=== PATIENT | female | born 1975 | race American Indian/Alaskan Native ===

== ENCOUNTER 2019-07-18 13:12 | Emergency (ER) | payer BC ==
[2019-07-18 13:21] VITALS: BP 184/96
--- NOTE | 2019-07-18 15:49 | Emergency Department Report ---
ED General Adult HPI - General Chief complaint: Headache Stated complaint: HEADACHE/RASH Time Seen by Provider: 07/18/19 14:13 Source: patient Mode of arrival: Ambulatory Limitations: No Limitations - History of Present Illness Initial comments: This is a 44-year-old female with a history of hypertension who presents to ED complaining acute throbbing headache with blurred vision the past 2 days. Patient states that her blood pressure is elevated from the past week or so. Patient states that she ran medication that she is not taking her blood pressure medication because of the fact that makes all her hands and legs a lot. Patient states she takes losartan as well as amlodipine blood pressure. Patient states that her primary care physician is not managing her blood pressure. She states that she feels that this shows 2 to her elevated blood pressure. She denies fever, chills, nausea, vomiting, abdominal pain, chest pain, shortness of breat h. Patient is also complaining of a rash that is on her bilateral hands has been intermittent for the past month. - Related Data Home Medications Medication Instructions Recorded Confirmed Last Taken Acetaminophen/Codeine 1 tab PO Q4HR PRN 11/22/14 11/27/14 11/21/14 [Acetaminophen-Codeine #3 TAB] glipiZIDE [glipiZIDE XL] 10 mg PO DAILY 11/22/14 11/27/14 11/21/14 Previous Rx's Medication Instructions Recorded Last Taken Type HYDROcodone/APAP 5-325 [[place] 1 each PO Q6HR PRN #20 tablet 11/22/14 Unknown Rx 5-325 mg TAB] levoFLOXacin [Levaquin] 500 mg PO QDAY #10 tablet 11/22/14 Unknown Rx metFORMIN [Glucophage] 1,000 mg PO BID #60 tablet 11/27/14 Unknown Rx Fluconazole [Diflucan TAB] 100 mg PO BID #14 tablet 07/18/19 Unknown Rx Ibuprofen [Motrin] 800 mg PO Q8HR #30 tablet 07/18/19 Unknown Rx Allergies Allergy/AdvReac Type Severity Reaction Status Date / Time No Known Allergies Allergy Unverified 11/22/14 10:30 ED Review of Systems ROS: Stated complaint: HEADACHE/RASH Other details as noted in HPI Comment: All other systems reviewed and negative ED Past Medical Hx - Past Medical History Hx Hypertension: Yes Hx Diabetes: Yes Hx GERD: Yes Hx Renal Disease: Yes (ckd) Additional medical history: Boil with I&D, anemia - Surgical History Past Surgical History?: No - Social History Smoking Status: Never Smoker Substance Use Type: None - Medications Home Medications: Home Medications Medication Instructions Recorded Confirmed Last Taken Type Acetaminophen/Codeine 1 tab PO Q4HR PRN 11/22/14 11/27/14 11/21/14 History [Acetaminophen-Codeine #3 TAB] HYDROcodone/APAP 5-325 [[place] 1 each PO Q6HR PRN #20 tablet 11/22/14 11/27/14 Unknown Rx 5-325 mg TAB] glipiZIDE [glipiZIDE XL] 10 mg PO DAILY 11/22/14 11/27/14 11/21/14 History levoFLOXacin [Levaquin] 500 mg PO QDAY #10 tablet 11/22/14 11/27/14 Unknown Rx metFORMIN [Glucophage] 1,000 mg PO BID #60 tablet 11/27/14 Unknown Rx Fluconazole [Diflucan TAB] 100 mg PO BID #14 tablet 07/18/19 Unknown Rx Ibuprofen [Motrin] 800 mg PO Q8HR #30 tablet 07/18/19 Unknown Rx ED Physical Exam - General Limitations: No Limitations General appearance: alert, in no apparent distress - Head Head exam: Present: atraumatic, normocephalic, normal inspection - Eye Eye exam: Present: normal appearance, PERRL Pupils: Present: normal accommodation - ENT ENT exam: Present: mucous membranes moist - Neck Neck exam: Present: normal inspection - Respiratory Respiratory exam: Present: normal lung sounds bilaterally. Absent: respiratory distress - Cardiovascular Cardiovascular Exam: Present: regular rate, normal rhythm. Absent: systolic murmur, diastolic murmur, rubs, gallop - GI/Abdominal GI/Abdominal exam: Present: soft, normal bowel sounds - Extremities Exam Extremities exam: Present: normal inspection, full ROM - Back Exam Back exam: Present: normal inspection, full ROM - Neurological Exam Neurological exam: Present: alert, oriented X3, normal gait - Psychiatric Psychiatric exam: Present: normal affect, normal mood - Skin Skin exam: Present: warm, dry, intact, normal color, rash (generalized, raised, pinpoint in a group lesions on posterior arms) ED Course Vital Signs 07/18/19 13:18 Temperature 98.1 F Pulse Rate 94 H Respiratory 20 Rate Blood Pressure 184/96 O2 Sat by Pulse 98 Oximetry ED Medical Decision Making - Medical Decision Making 44-year-old female who presents for uncontrolled hypertension as well as eczematous rash. Discussed the patient and her medication for her blood pressure will be reviewed. Discussed medication for eczematous rash. Discussed with the primary care physician Patient is in no acute distress vital signs normal Discussed follow-up with primary care physician in 3-5 days. Patient has no neurological deficit and understands instructions. Critical care attestation.: If time is entered above; I have spent that time in minutes in the direct care of this critically ill patient, excluding procedure time. ED Disposition Clinical Impression: Uncontrolled hypertension, Acute headache, Acute seborrheic dermatitis Disposition: TO HOME OR SELFCARE Is pt being admited?: No Does the pt Need Aspirin: No Condition: Stable Instructions: Eczema (ED), Hypertension (ED) Additional Instructions: Make sure to follow up with the primary care physician as discussed. Take all your medications as you've been prescribed. If you have any worsening symptoms or develop new symptoms please return to ED immediately. Prescriptions: Fluconazole [Diflucan TAB] 100 mg PO BID #14 tablet Ibuprofen [Motrin] 800 mg PO Q8HR #30 tablet Referrals: [facility] [Provider Group] - 3-5 Days [facility] [Outside] - 3-5 Days [facility] [Provider Group] - 3-5 Days Forms: Work/School Release Form(ED) Time of Disposition: 16:06 (all)
== END 2019-07-18 16:14 | disposition home or self-care (01) ==
LOC: ED 13:12
DX: I12.9 Hypertensive chronic kidney disease with stage 1 through stage 4 chronic kidney disease, or unspecified chronic kidney disease (principal); L21.9 Seborrheic dermatitis, unspecified; E11.9 Type 2 diabetes mellitus without complications; K21.9 Gastro-esophageal reflux disease without esophagitis; Z79.899 Other long term (current) drug therapy; Z86.2 Personal history of diseases of the blood and blood-forming organs and certain disorders involving the immune mechanism; Z79.1 Long term (current) use of non-steroidal anti-inflammatories (NSAID); Z79.84 Long term (current) use of oral hypoglycemic drugs
CPT/HCPCS: 99282

== ENCOUNTER 2020-01-03 12:04 | Emergency (ER) | payer SELFPAY ==
[2020-01-03] MEDS ORDERED: ACETAMINOPHEN 325 MG TAB PO ONE (13:34)
--- NOTE | 2020-01-03 13:35 | Emergency Department Report ---
Chief Complaint: Abdominal Pain Stated Complaint: PAIN IN LOWER ABD PAIN/(L) LEG PAIN Time Seen by Provider: 01/03/20 13:34 - HPI History of Present Illness: 44 y/o fem with ckd, stage 3, anemia, htn, dm p/w lower abd painm left sided worse after menses belly soft also has left proximal thigh pain labs ua u sound apap for pain ok for minor care reassess Vital Signs 01/03/20 13:31 Temperature 98.1 F Pulse Rate 90 Respiratory 18 Rate Blood Pressure 193/96 O2 Sat by Pulse 99 Oximetry - Exam Vital Signs: Vital Signs 01/03/20 13:31 Temperature 98.1 F Pulse Rate 90 Respiratory 18 Rate Blood Pressure 193/96 O2 Sat by Pulse 99 Oximetry MSE screening note: Focused history and physical exam performed. Due to findings the following was ordered: ED Disposition for MSE Condition: Stable Instructions: Abdominal Pain (ED)
[2020-01-03] MEDS ORDERED: amLODIPine 5 MG TAB PO ONE (13:36)
[2020-01-03 14:50] LABS: Hemoglobin 8.5 gm/dl (10.1-14.3); Mean Corpuscular HGB Conc 33 % (30-34); Mean Corpuscular Volume 80 fl (79-97); Platelet Count 325 K/mm3 (140-440); Red Blood Count 3.25 M/mm3 (3.65-5.03); Red Cell Distribution Width 15.9 % (13.2-15.2)
[2020-01-03 15:10] LABS: Calcium 9.1 mg/dL (8.4-10.2)
[2020-01-03 15:16] LABS: Bacteria,Urine 1+ /HPF (Negative); Bilirubin,Urine NEG (Negative); Blood,Urine NEG (Negative); Color,Urine Straw (Yellow); Mucus,Urine FEW /HPF; Urobilinogen,Urine < 2.0 mg/dL (<2.0)
--- NOTE | 2020-01-03 16:11 | Ultrasound Report ---
ULTRASOUND PELVIS DUPLEX DOPPLER COMPLETE ULTRASOUND TRANSVAGINAL HISTORY: Pelvic pain TECHNIQUE: Transabdominal and transvaginal imaging with color and spectral Doppler interrogation COMPARISON: None. FINDINGS: The uterus is anteverted. The uterus measures 9.7 x 5.1 x 5.1 cm. A 2.6 x 1.7 x 2.5 cm intramural fib roid is noted in the lower anterior uterine wall. The endometrial stripe measures 13 mm. The right ovary measures 3.9 x 1.7 x 3.3 cm and contains a 2.1 cm slightly complex cyst. The left ovary is unremarkable measuring 2.2 x 2.4 x 4.1 cm. Small to medium free pelvic fluid is noted in both adnexal regions. Spectral Doppler waveforms demonstrate arterial flow to both ovaries. IMPRESSION: Uterine fibroid. 2.1 cm right ovarian cyst. Small to medium free pelvic fluid. Signer Name: Agustin Sahni Jr, MD Signed: 01/03/2020 4:07 PM Workstation Name: [id number]
[2020-01-03] MEDS ORDERED: ACETAMINOPHEN 325 MG TAB ONE (21:00)
[2020-01-03] MEDS ORDERED: amLODIPine 5 MG TAB ONE (21:01)
[2020-01-03 21:04] VITALS: BP 172/94
--- NOTE | 2020-01-03 23:00 | Emergency Department Report ---
ED Abdominal Pain HPI - General Chief Complaint: Abdominal Pain Stated Complaint: PAIN IN LOWER ABD PAIN/(L) LEG PAIN Time Seen by Provider: 01/03/20 13:34 Source: patient Mode of arrival: Ambulatory Limitations: No Limitations - History of Present Illness Initial Comments: Ms. Hill is a 44 y/o fem with ckd, stage 3, anemia, htn, dm p/w, lower abd pain left sided worse, after menses, belly soft, also has left proximal thigh pain, labs, ua, u sound, apap for pain,. Pain relieved by nothing, pain exacerbated by movement. MD Complaint: abdominal pain (LLQ ) Onset/Timin -: week(s) Location: LLQ Radiation: LLQ Migration to: no migration Severity scale (0 -10): 5 Quality: aching Consistency: constant Improves With: nothing Worsens With: movement Associated Symptoms: denies: nausea, vomiting, diarrhea, chills, constipation, dysuria, melena, hematuria - Related Data LMP (females 10-50): 1 month Home Medications Medication Instructions Recorded Confirmed Last Taken Acetaminophen/Codeine 1 tab PO Q4HR PRN 11/22/14 11/27/14 11/21/14 [Acetaminophen-Codeine #3 TAB] glipiZIDE [glipiZIDE XL] 10 mg PO DAILY 11/22/14 11/27/14 11/21/14 Previous Rx's Medication Instructions Recorded Last Taken Type HYDROcodone/APAP 5-325 [[place] 1 each PO Q6HR PRN #20 tablet 11/22/14 Unknown Rx 5-325 mg TAB] levoFLOXacin [Levaquin] 500 mg PO QDAY #10 tablet 11/22/14 Unknown Rx metFORMIN [Glucophage] 1,000 mg PO BID #60 tablet 11/27/14 Unknown Rx Fluconazole [Diflucan TAB] 100 mg PO BID #14 tablet 07/18/19 Unknown Rx Ibuprofen [Motrin] 800 mg PO Q8HR #30 tablet 07/18/19 Unknown Rx Acetaminophen/Codeine [Tylenol 1 tab PO Q6H PRN #12 tab 01/03/20 Unknown Rx /Codeine # 3 tab] Allergies Allergy/AdvReac Type Severity Reaction Status Date / Time No Known Allergies Allergy Unverified 11/22/14 10:30 ED Review of Systems ROS: Stated complaint: PAIN IN LOWER ABD PAIN/(L) LEG PAIN Other details as noted in HPI Constitutional: denies: chills, fever Eyes: denies: eye pain, eye discharge, vision change ENT: denies: ear pain, throat pain Respiratory: denies: cough, shortness of breath, wheezing Cardiovascular: denies: chest pain, palpitations Endocrine: no symptoms reported Gastrointestinal: abdominal pain. denies: nausea, vomiting, diarrhea, constipation, melena Genitourinary: abnormal menses. denies: urgency, dysuria, frequency, hematuria, discharge, dyspareunia Musculoskeletal: denies: back pain, joint swelling, arthralgia Skin: denies: rash, lesions Neurological: denies: headache, weakness, numbness, paresthesias, confusion, abnormal gait, vertigo Psychiatric: denies: anxiety, depression Hematological/Lymphatic: denies: easy bleeding, easy bruising ED Past Medical Hx - Past Medical History Previous Medical History?: Yes Hx Hypertension: Yes Hx Diabetes: Yes Hx GERD: Yes Hx Renal Disease: Yes (ckd- stage 3) Additional medical history: Boil with I&D, anemia - Surgical History Past Surgical History?: No - Social History Smoking Status: Never Smoker Substance Use Type: None - Medications Home Medications: Home Medications Medication Instructions Recorded Confirmed Last Taken Type Acetaminophen/Codeine 1 tab PO Q4HR PRN 11/22/14 11/27/14 11/21/14 History [Acetaminophen-Codeine #3 TAB] HYDROcodone/APAP 5-325 [[place] 1 each PO Q6HR PRN #20 tablet 11/22/14 11/27/14 U nknown Rx 5-325 mg TAB] glipiZIDE [glipiZIDE XL] 10 mg PO DAILY 11/22/14 11/27/14 11/21/14 History levoFLOXacin [Levaquin] 500 mg PO QDAY #10 tablet 11/22/14 11/27/14 Unknown Rx metFORMIN [Glucophage] 1,000 mg PO BID #60 tablet 11/27/14 Unknown Rx Fluconazole [Diflucan TAB] 100 mg PO BID #14 tablet 07/18/19 Unknown Rx Ibuprofen [Motrin] 800 mg PO Q8HR #30 tablet 07/18/19 Unknown Rx Acetaminophen/Codeine [Tylenol 1 tab PO Q6H PRN #12 tab 01/03/20 Unknown Rx /Codeine # 3 tab] ED Physical Exam - General Limitations: No Limitations General appearance: alert, in no apparent distress - Head Head exam: Present: atraumatic, normocephalic - Eye Eye exam: Present: normal appearance, PERRL, EOMI Pupils: Present: normal accommodation - ENT ENT exam: Present: mucous membranes moist - Neck Neck exam: Present: normal inspection, full ROM. Absent: tenderness - Respiratory Respiratory exam: Present: normal lung sounds bilaterally. Absent: respiratory distress - Cardiovascular Cardiovascular Exam: Present: regular rate, normal rhythm, normal heart sounds. Absent: systolic murmur, diastolic murmur, rubs, gallop - GI/Abdominal GI/Abdominal exam: Present: soft, tenderness (superpubic ), normal bowel sounds. Absent: distended, guarding, rebound, rigid, bruit, hernia - Rectal Rectal exam: Present: deferred - External exam: Present: bleeding (exam deferred ) - Extremities Exam Extremities exam: Present: normal inspection, full ROM, normal capillary refill - Back Exam Back exam: Present: normal inspection, full ROM. Absent: tenderness, CVA tenderness (R), CVA tenderness (L), muscle spasm, rash noted - Neurological Exam Neurological exam: Present: alert, oriented X3, CN II-XII intact, normal gait, reflexes normal. Absent: motor sensory deficit - Psychiatric Psychiatric exam: Present: normal affect, normal mood - Skin Skin exam: Present: warm, dry, intact, normal color. Absent: rash ED Course Vital Signs 01/03/20 01/03/20 01/03/20 13:31 21:03 21:05 Temperature 98.1 F 98.4 F Pulse Rate 90 92 H 92 H Respiratory 18 18 16 Rate Blood Pressure 193/96 172/94 Blood Pressure 172/94 [Right] O2 Sat by Pulse 99 100 Oximetry ED Medical Decision Making - Lab Data Result diagrams: 01/03/20 14:17 01/03/20 14:17 Labs 01/03/20 01/03/20 01/03/20 14:17 14:17 14:17 WBC 6.6 RBC 3.25 L Hgb 8.5 L Hct 26.0 L MCV 80 MCH 26 L MCHC 33 RDW 15.9 H Plt Count 325 Sodium 140 Potassium 4.4 Chloride 103.0 Carbon Dioxide 24 Anion Gap 17 BUN 51 H Creatinine 2.6 H Estimated GFR 24 BUN/Creatinine Ratio 20 Glucose 83 Calcium 9.1 Magnesium 1.90 Total Creatine Kinase 182 H HCG, Quant < 2 Urine Color Urine Turbidity Urine pH Ur Specific [place] Urine Protein Urine Glucose (UA) Urine Ketones Urine Blood Urine Nitrite Urine Bilirubin Urine Urobilinogen Ur Leukocyte Esterase Urine WBC (Auto) Urine RBC (Auto) U Epithel Cells (Auto) Urine Bacteria (Auto) Urine Mucus 01/03/20 14:50 WBC RBC Hgb Hct MCV MCH MCHC RDW Plt Count Sodium Potassium Chloride Carbon Dioxide Anion Gap BUN Creatinine Estimated GFR BUN/Creatinine Ratio Glucose Calcium Magnesium Total Creatine Kinase HCG, Quant Urine Color Straw Urine Turbidity Clear Urine pH 6.0 Ur Specific [place] 1.010 Urine Protein 100 mg/dl Urine Glucose (UA) 50 Urine Ketones Neg Urine Blood Neg Urine Nitrite Neg Urine Bilirubin Neg Urine Urobilinogen < 2.0 Ur Leukocyte Esterase Neg Urine WBC (Auto) 1.0 Urine RBC (Auto) 2.0 U Epithel Cells (Auto) 2.0 Urine Bacteria (Auto) 1+ Urine Mucus Few - Radiology Data Radiology results: report reviewed, image reviewed FINDINGS: The uterus is anteverted. The uterus measures 9.7 x 5.1 x 5.1 cm. A 2.6 x 1.7 x 2.5 cm intramural fibroid is noted in the lower anterior uterine wall. The endometrial stripe measures 13 mm. The right ovary measures 3.9 x 1.7 x 3.3 cm and contains a 2.1 cm slightly complex cyst. The left ovary is unremarkable measuring 2.2 x 2.4 x 4.1 cm. Small to medium free pelvic fluid is noted in both adnexal regions. Spectral Doppler waveforms demonstrate arterial flow to both ovaries. IMPRESSION: Uterine fibroid. 2.1 cm right ovarian cyst. Small to medium free pelvic fluid. Signer Name: Agustin Ramirez Jr, MD Signed: 01/03/2020 4:07 PM Workstation Name: [id number] Transcribed By: TTR Dictated By: AGUSTIN RAMIREZ JR, MD Electronically Authenticated By: AGUSTIN RAMIREZ JR, MD Signed Date/Time: 01/03/20 160 DD/ 160 TD/TT: - Medical Decision Making US: Rigiht Ovarian Cyst, 2.1 cm, this is known and chronic to this patient, labs, consistent with chronic renal disease, h/h 8.5/26.7 , pt also advises is chronic condition, on FE, plan: pt will follow up with [facility] in 2-3 days , apap for pain prn, return to emergency if symptoms worsen. pt verbalized agreement and understanding of discharge plan. pt dc'd to self in stable condition at this time. Critical care attestation.: If time is entered above; I have spent that time in minutes in the direct care of this critically ill patient, excluding procedure time. ED Disposition Clinical Impression: Fibroids Disposition: DC-01 TO HOME OR SELFCARE Is pt being admited?: No Does the pt Need Aspirin: No Condition: Stable Instructions: Uterine Fibroids (ED) Prescriptions: Acetaminophen/Codeine [Tylenol /Codeine # 3 tab] 1 tab PO Q6H PRN #12 tab PRN Reason: pain Referrals: CHARITY HARVEY MD [Staff Physician] - 3-5 Days Forms: Work/School Release Form(ED) Time of Disposition: 23:20
== END 2020-01-03 23:31 | disposition home or self-care (01) ==
LOC: ED 12:04
DX: D25.9 Leiomyoma of uterus, unspecified (principal); N83.291 Other ovarian cyst, right side; I12.9 Hypertensive chronic kidney disease with stage 1 through stage 4 chronic kidney disease, or unspecified chronic kidney disease; E13.22 Other specified diabetes mellitus with diabetic chronic kidney disease; N18.3 Chronic kidney disease, stage 3 (moderate); Z86.2 Personal history of diseases of the blood and blood-forming organs and certain disorders involving the immune mechanism; Z79.899 Other long term (current) drug therapy
CPT/HCPCS: 36415; 76830; 80048; 81001; 82550; 83735; 84702; 85027; 93975

== ENCOUNTER 2020-09-17 16:34 | Emergency (ER) | payer SELFPAY ==
[2020-09-17] MEDS ORDERED: cloNIDine 0.1 MG TAB PO ONE ×2 (17:41→18:35)
--- NOTE | 2020-09-17 17:43 | Event Note ---
ED Screening Note Date of service: 09/17/20 Time: 17:37 ED Screening Note: c/o headache and vomiting and elevated BP 200s/125 states compliance with losaartan and metoprolol headache is generalized, denies thunderclap onset denies hx of CVA or MS BP here today is 232/145 This initial assessment/diagnostic orders/clinical plan/treatment(s) is/are subject to change based on patients health status, clinical progression and re- assessment by fellow clinical providers in the ED. Further treatment and workup at subsequent clinical providers discretion. Patient/guardian urged not to elope from the ED as their condition may be serious if not clinically assessed and managed. Initial orders include: labs clonidine 01. mg CT head
[2020-09-17 18:30] LABS: Basophils % (Auto) 0.8 % (0.0-1.8); Eosinophils # (Auto) 0.2 K/mm3 (0.0-0.4); Eosinophils % (Auto) 2.9 % (0.0-4.3); Hematocrit 30.3 % (30.3-42.9); Lymphocytes % (Auto) 18.5 % (13.4-35.0); Mean Corpuscular HGB Conc 33 % (30-34); Mean Corpuscular Volume 82 fl (79-97); Monocytes # (Auto) 0.2 K/mm3 (0.0-0.8); Monocytes % (Auto) 4.4 % (0.0-7.3); Platelet Count 283 K/mm3 (140-440); Red Blood Count 3.68 M/mm3 (3.65-5.03); Red Cell Distribution Width 16.1 % (13.2-15.2)
[2020-09-17] MEDS ORDERED: BUTALB/ACETAMINOPHEN/CAFFEINE TAB PO ONE (18:33)
--- NOTE | 2020-09-17 18:34 | Cat Scan Report ---
CT HEAD WITHOUT CONTRAST INDICATION / CLINICAL INFORMATION: elevated blood pressure, abnormal headache. TECHNIQUE: Axial imaging performed from the skull apex through the skull base without the use of cont rast. Sagittal and coronal reformatted images. All CT scans at this location are performed using CT dose reduction for ALARA by means of automated exposure control. COMPARISON: None available. FINDINGS: CEREBRAL PARENCHYMA: No significant abnormality. No acute territorial infarct. HEMORRHAGE: None. EXTRA-AXIAL SPACES: Normal in size and morphology for the patient's age. VENTRICULAR SYSTEM: Normal in size and morphology for the patient's age. MIDLINE SHIFT OR HERNIATION: None. CEREBELLUM / BRAINSTEM: No significant abnormality. CALVARIUM: No significant abnormality. ORBITS: Normal as visualized. PARANASAL SINUSES / MASTOID AIR CELLS: Normal as visualized. SOFT TISSUES of HEAD: No significant abnormality. ADDITIONAL FINDINGS: None. IMPRESSION: No acute intracranial abnormality. Signer Name: Agustin Sahni Jr, MD Signed: 09/17/2020 6:29 PM Workstation Name: [id number]
[2020-09-17 18:49] LABS: Albumin 3.3 g/dL (3.9-5)
[2020-09-17] MEDS ORDERED: METOPROLOL TARTRATE 50 MG TAB ONE (19:54)
[2020-09-17] MEDS ORDERED: amLODIPine 5 MG TAB PO ONE (21:48)
[2020-09-17] MEDS ORDERED: METOCLOPRAMIDE 10 MG TAB PO ONE (21:48)
--- NOTE | 2020-09-17 21:49 | Emergency Department Report ---
ED General Adult HPI - General Chief complaint: High BP Stated complaint: ELEVATED BP N/V PUI?: No Time Seen by Provider: 09/17/20 17:37 Source: patient, RN notes reviewed, old records reviewed Mode of arrival: Ambulatory Limitations: No Limitations - History of Present Illness Initial comments: The patient was evaluated in the emergency department for symptoms described in the history of present illness. He/she was evaluated in the context of the global COVID-19 pandemic, which necessitated consideration that the patient m ight be at risk for infection with the virus that causes COVID-19. Institutional protocols and algorithms that pertain to the evaluation of patients at risk for COVID-19 are in a state of rapid change based on information released by regulatory bodies including the CDC and federal and state organizations. These policies and algorithms were followed during the patient's care in the emergency department. Please note that these policies, procedures and recommendations changed on a rapid basis. Patient is a 45-year-old female. She has a primary care doctor whom she cannot recall. She has previously seen a accelerator technician at [place], but has failed to follow-up. She states that she has not has not delivered given in the past 6 weeks. Her past medical history includes renal insufficiency, hypertension, diabetes and obesity. She states that she is taking a water pill, but does not know the name of the medication. She cannot member what pharmacy she gets it from. She is also taking losartan. She was also taking metoprolol, which she received in the emergency room, but ran of this medication 2 days ago. She presents to the ER today with a complaint of hypertension, resolved nausea, and headache. She states that her blood pressure typically "runs in the 190s." She reports that this morning, she checked her blood pressure, and it was "in the 200s." She developed a frontal, bitemporal and occipital simultaneous headache, approximately 24 hours ago, which is not sudden or thunderclap in nature, not maximal in intensity, and not the worst headache of her life. The headache reached maximal intensity approximately 12 to 14 hours after onset. There is no trauma, no loss of vision, no neck pain, no neck stiffness, no chest pain, no abdominal pain, she had mild nausea, which is now resolved. She denies urinary symptoms, and has chronic lower extremity swelling. She also states that she feels "very anxious." -: Gradual, hour(s), days(s) Location: head Severity scale (0 -10): 8 Quality: other Consistency: other Improves with: other Worsens with: other Associated Symptoms: other - Related Data Home Medications Medication Instructions Recorded Confirmed Last Taken glipiZIDE [glipiZIDE XL] 10 mg PO DAILY 11/22/14 11/27/14 11/21/14 Previous Rx's Medication Instructions Recorded Last Taken Type metFORMIN [Glucophage] 1,000 mg PO BID #60 tablet 11/27/14 Unknown Rx Acetaminophen [Non-Aspirin Extra 500 mg PO Q6HR PRN #30 tablet 09/17/20 Unknown Rx Strength] Amlodipine Besylate [Norvasc] 10 mg PO QDAY #60 tablet 09/17/20 Unknown Rx Metoclopramide [Reglan] 10 mg PO QID PRN #30 tablet 09/17/20 Unknown Rx Allergies Allergy/AdvReac Type Severity Reaction Status Date / Time lisinopril AdvReac Unknown Verified 09/17/20 17:41 ED Review of Systems ROS: Stated complaint: ELEVATED BP N/V Other details as noted in HPI Constitutional: denies: fever, malaise Eyes: denies: eye discharge, vision change Respiratory: denies: cough Cardiovascular: denies: chest pain, syncope Gastrointestinal: nausea, vomiting, other (Patient reports that she vomited x1). denies: abdominal pain Genitourinary: other (No discoloration to urine). denies: dysuria Musculoskeletal: denies: back pain Neurological: headache. denies: weakness, numbness, paresthesias, confusion Psychiatric: anxiety ED Past Medical Hx - Past Medical History Hx Hypertension: Yes Hx Diabetes: Yes Hx GERD: Yes Hx Renal Disease: Yes (ckd- stage 3) Additional medical history: Boil with I&D, anemia. Uterine Fibroids - Social History Smoking Status: Never Smoker Substance Use Type: None - Medications Home Medications: Home Medications Medication Instructions Recorded Confirmed Last Taken Type glipiZIDE [glipiZIDE XL] 10 mg PO DAILY 11/22/14 11/27/14 11/21/14 History metFORMIN [Glucophage] 1,000 mg PO BID #60 tablet 11/27/14 Unknown Rx Acetaminophen [Non-Aspirin Extra 500 mg PO Q6HR PRN #30 tablet 09/17/20 Unknown Rx Strength] Amlodipine Besylate [Norvasc] 10 mg PO QDAY #60 tablet 09/17/20 Unknown Rx Metoclopramide [Reglan] 10 mg PO QID PRN #30 tablet 09/17/20 Unknown Rx ED Physical Exam - General Limitations: No Limitations General appearance: alert, in no apparent distress - Head Head exam: Present: atraumatic, normocephalic - Eye Eye exam: Present: normal appearance, PERRL, EOMI. Absent: nystagmus - ENT ENT exam: Present: normal exam, normal orophraynx, mucous membranes moist, nor mal external ear exam - Neck Neck exam: Present: normal inspection, full ROM. Absent: tenderness, meningismus - Respiratory Respiratory exam: Present: normal lung sounds bilaterally. Absent: respiratory distress, wheezes, rales, rhonchi, stridor, decreased breath sounds - Cardiovascular Cardiovascular Exam: Present: regular rate, normal rhythm, normal heart sounds. Absent: bradycardia, tachycardia, irregular rhythm, systolic murmur, diastolic murmur, rubs, gallop - GI/Abdominal GI/Abdominal exam: Present: soft. Absent: distended, tenderness, guarding, rebound, rigid, pulsatile mass - Extremities Exam Extremities exam: Present: normal inspection, full ROM, pedal edema, other (2+ pulses noted in the bilateral upper and lower extremities. There is no palpable cord. negative Homans sign. Muscular compartments are soft. The pelvis is stable.). Absent: calf tenderness - Back Exam Back exam: Present: normal inspection, full ROM. Absent: tenderness, CVA tenderness (R), CVA tenderness (L), paraspinal tenderness, vertebral tenderness - Neurological Exam Neurological exam: Present: alert, normal gait, other (There is no facial droop. The tongue is midline. Extraocular movements are intact bilaterally. There is 5 out of 5 strength in bilateral upper and lower extremities. Sensation is intact to light touch bilateral upper and lower extremities. There is no past- pointing. There is no pronator drift. There is normal [id number]. There is a normal gait.). Absent: motor sensory deficit - Psychiatric Psychiatric exam: Present: anxious - Skin Skin exam: Present: warm, dry, intact, normal color. Absent: rash ED Course Vital Signs 09/17/20 09/17/20 09/17/20 17:39 17:45 18:32 Temperature 97.8 F Pulse Rate 98 H 97 H Respiratory 18 Rate Blood Pressure 232/145 232/145 214/128 O2 Sat by Pulse 98 Oximetry 09/17/20 09/17/20 09/17/20 19:24 21:35 21:39 Temperature 98.0 F Pulse Rate 81 73 72 Respiratory 18 17 16 Rate Blood Pressure 176/108 O2 Sat by Pulse 99 Oximetry 09/17/20 22:27 Temperature Pulse Rate 73 Respiratory Rate Blood Pressure 164/99 O2 Sat by Pulse Oximetry ED Medical Decision Making - Lab Data Result diagrams: 09/17/20 17:50 09/17/20 17:50 Vital Signs 09/17/20 09/17/20 09/17/20 17:39 17:45 18:32 Temperature 97.8 F Pulse Rate 98 H 97 H Respiratory 18 Rate Blood Pressure 232/145 232/145 214/128 O2 Sat by Pulse 98 Oximetry 09/17/20 09/17/20 09/17/20 19:24 21:35 21:39 Temperature 98.0 F Pulse Rate 81 73 72 Respiratory 18 17 16 Rate Blood Pressure 176/108 O2 Sat by Pulse 99 Oximetry 09/17/20 22:27 Temperature Pulse Rate 73 Respiratory Rate Blood Pressure 164/99 O2 Sat by Pulse Oximetry Lab Results 09/17/20 09/17/20 09/17/20 Range/Units 17:50 17:50 17:50 WBC 5.5 (4.5-11.0) K/mm3 RBC 3.68 (3.65-5.03) M/mm3 Hgb 10.0 L (10.1-14.3) gm/dl Hct 30.3 (30.3-42.9) % MCV 82 (79-97) fl MCH 27 L (28-32) pg MCHC 33 (30-34) % RDW 16.1 H (13.2-15.2) % Plt Count 283 (140-440) K/mm3 Lymph % (Auto) 18.5 (13.4-35.0) % [place] % (Auto) 4.4 (0.0-7.3) % Eos % (Auto) 2.9 (0.0-4.3) % Baso % (Auto) 0.8 (0.0-1.8) % Lymph # (Auto) 1.0 L (1.2-5.4) K/mm3 [place] # (Auto) 0.2 (0.0-0.8) K/mm3 Eos # (Auto) 0.2 (0.0-0.4) K/mm3 Baso # (Auto) 0.0 (0.0-0.1) K/mm3 Seg Neutrophils % 73.4 H (40.0-70.0) % Seg Neutrophils # 4.1 (1.8-7.7) K/mm3 Sodium 137 (137-145) mmol/L Potassium 4.5 (3.6-5.0) mmol/L Chloride 101.3 (98-107) mmol/L Carbon Dioxide 23 (22-30) mmol/L Anion Gap 17 mmol/L BUN 52 H (7-17) mg/dL Creatinine 4.9 H (0.6-1.2) mg/dL Estimated GFR 11 ml/min BUN/Creatinine Ratio 11 % Glucose 91 (65-100) mg/dL Calcium 9.0 (8.4-10.2) mg/dL Magnesium 1.80 (1.7-2.3) mg/dL Total Bilirubin 0.20 (0.1-1.2) mg/dL AST 25 (5-40) units/L ALT 11 (7-56) units/L Alkaline Phosphatase 41 (35-129) units/L Total Creatine Kinase 633 H (30-135) units/L Total Protein 6.7 (6.3-8.2) g/dL Albumin 3.3 L (3.9-5) g/dL Albumin/Globulin Ratio 1.0 % - EKG Data -: EKG Interpreted by Dc EKG shows normal: sinus rhythm Rate: normal - EKG Data When compared to previous EKG there are: previous EKG unavailable 09/17/20 22:33 Sinus rhythm, 71 bpm, left axis deviation, left anterior fascicular block, motion artifact, QTC is prolonged, the EKG is abnormal, the EKG is not a STEMI - Radiology Data Radiology results: report reviewed, image reviewed Noncontrast CT scan of the brain is negative for acute finding - Medical Decision Making Differential diagnosis, including but limited to: Migraine headache, tension headache, cluster headache, intracranial hemorrhage, hypertension, medication noncompliance, acute on chronic renal insufficiency Assessment and plan: 45-year-old female, who was afebrile, with reassuring vital signs, with a GCS of 15, NIH score of 0, no meningeal signs, with headache, resolved nausea, chronic hypertension, and acute on chronic renal insufficiency. Patient presents as pleasant, calm and cooperative at this time, headache not sudden, not thunderclap, not maximal intensity at onset, and not the worst headache of her life. CT scan of the brain, laboratory studies were obtained prior to my personal evaluation, CT scan negative for acute findings, laboratory studies demonstrate acute on chronic renal insufficiency, which I suspect is secondary to diet lifestyle noncompliance. Patient was given clonidine prior to my personal evaluation. Contacted nephrology on-call, Dr. Henry, we discussed the patient's history, physical, and pertinent laboratory findings. Dr. Henry advises that he can follow the patient up urgently in a day and a half, this coming Wednesday, and he recommends, and I agree, that the patient discontinue her "water pill", losartan and metoprolol. Patient will be initiated on high-dose Norvasc, and be given Tylenol and/or Reglan for her headache and nausea. Patient was observed in this ER for hours without clinical decompensation, and had improvement in vital signs. I have strongly counseled the patient to closely follow-up with nephrology for her worsening renal insufficiency. Critical care attestation.: If time is entered above; I have spent that time in minutes in the direct care of this critically ill patient, excluding procedure time. ED Disposition Clinical Impression: Renal insufficiency, Headache, Hypertension Disposition: DC-01 TO HOME OR SELFCARE Is pt being admited?: No Does the pt Need Aspirin: No Condition: Stable Instructions: Hypertension (ED) Additional Instructions: Discontinue Motrin, ibuprofen, Naprosyn, Aleve. Discontinue metoprolol, losartan, and patient's water pill. Take the Norvasc medication as directed. Follow-up with accelerator technician, Dr. Henry, in 2 days, this Wednesday for an urgent follow-up appointment. Please contact Dr. Villatoro office tomorrow, Wednesday, September 18, first thing in the morning, at [phone], and please request an urgent follow-up appointment. Please let the office staff know that we have spoken to Dr. Henry this evening, he would like to see you this Tanika to follow-up. It is very important to closely follow-up as recommended for control of patient's blood pressure and renal insufficiency. Noncompliance with diet and lifestyle as well as medications may result in worsening renal insufficiency, requirement of dialysis, stroke, heart attack, disability, paralysis, loss of quality of life. Please avoid alcohol, heavy and spicy foods, and excessive salt intake. Please return to the emergency room right away with new pain, worsening pain, migration of pain, productive vomiting, change in mental status, confusion, inability to tolerate liquid feeds, new, worsened or different symptoms not present on the initial emergency room evaluation. Referrals: ANA HERNY MD [Staff Physician] - 09/19/20
[2020-09-17 23:13] VITALS: BP 158/94
== END 2020-09-17 23:18 | disposition home or self-care (01) ==
LOC: ED 16:34
DX: I12.9 Hypertensive chronic kidney disease with stage 1 through stage 4 chronic kidney disease, or unspecified chronic kidney disease (principal); N18.30 Chronic kidney disease, stage 3 unspecified; E11.22 Type 2 diabetes mellitus with diabetic chronic kidney disease; N28.9 Disorder of kidney and ureter, unspecified; R51.9 Headache, unspecified; D64.9 Anemia, unspecified; K21.9 Gastro-esophageal reflux disease without esophagitis; Z79.899 Other long term (current) drug therapy; Z88.8 Allergy status to other drugs, medicaments and biological substances
CPT/HCPCS: 36415; 70450; 80053; 82550; 83735; 85025; 93005

== ENCOUNTER 2021-10-09 17:19 | Inpatient (IN) | payer SELFPAY ==
[2021-10-09] MEDS ORDERED: ONDANSETRON 4 MG/2 ML INJ IV ONE ×2 (17:50→19:27)
[2021-10-09] MEDS ORDERED: MORPHINE 4 MG/1 ML INJ IV ONE ×2 (17:50→19:27)
--- NOTE | 2021-10-09 17:52 | Event Note ---
ED Screening Note Date of service: 10/09/21 Time: 17:51 ED Screening Note: Patient presents with complaint of sudden onset of rectal pain and sudden worsening of her pelvic pain today She states she was admitted to [facility] approximately 5 days ago with similar symptoms, however the rectal pain is new History of ESRD on dialysis Patient states during her admission she was found to have fibroids and ruptured cyst, however she is unsure of why she stated 4 to 5 days in the hospital Patient rates her current pain as a 10/10 in severity She denies any history of hemorrhoids or rectal bleeding This initial assessment/diagnostic orders/clinical plan/treatment(s) is/are subject to change based on patients health status, clinical progression and re- assessment by fellow clinical providers in the ED. Further treatment and workup at subsequent clinical providers discretion. Patient/guardian urged not to elope from the ED as their condition may be serious if not clinically assessed and managed. Initial orders include: Labs Meds
[2021-10-09 18:02] LABS: Basophils % (Auto) 0.5 % (0.0-1.8); Eosinophils # (Auto) 0.2 K/mm3 (0.0-0.4); Eosinophils % (Auto) 2.4 % (0.0-4.3); Hematocrit 30.3 % (30.3-42.9); Hemoglobin 9.3 gm/dl (10.1-14.3); Lymphocytes % (Auto) 11.1 % (13.4-35.0); Mean Corpuscular HGB Conc 31 % (30-34); Mean Corpuscular Volume 89 fl (79-97); Monocytes # (Auto) 0.3 K/mm3 (0.0-0.8); Monocytes % (Auto) 3.3 % (0.0-7.3); Platelet Count 608 K/mm3 (140-440); Red Blood Count 3.42 M/mm3 (3.65-5.03); Red Cell Distribution Width 18.1 % (13.2-15.2)
[2021-10-09 18:28] LABS: Albumin 3.2 g/dL (3.9-5); Blood Urea Nitrogen 31 mg/dL (7-17); Calcium 8.6 mg/dL (8.4-10.2); Hemolysis Index 8
[2021-10-09 18:33] LABS: Alanine Aminotransferase < 5 units/L (7-56); BUN/Creatinine Ratio 4
--- NOTE | 2021-10-09 21:05 | Cat Scan Report ---
CT ABDOMEN AND PELVIS WITH CONTRAST INDICATION / CLINICAL INFORMATION: abdominal pain. TECHNIQUE: Axial CT images were obtained through the abdomen and pelvis after IV contrast. All CT sc ans at this location are performed using CT dose reduction for ALARA by means of automated exposure c ontrol. COMPARISON: None available. FINDINGS: LOWER CHEST: No significant abnormality. LIVER: No significant abnormality. GALLBLADDER: No significant abnormality. BILE DUCTS: No significant abnormality. PANCREAS: No significant abnormality. SPLEEN: No significant abnormality. ADRENALS: No significant abnormality. RIGHT KIDNEY / URETER: 9 mm cyst lower pole. LEFT KIDNEY / URETER: No significant abnormality. STOMACH / SMALL BOWEL: Dilated small bowel deep within the pelvis. There appear to be isolated segmen t of dilated bowel and adjacent inflammation as well. COLON: No significant abnormality. APPENDIX: No significant abnormality. PERITONEUM: Mild pelvic free fluid. This is seen within the cul-de-sac and localized adjacent to the cecum. No well-defined fluid collection is identified LYMPH NODES: No significant adenopathy. VASCULAR STRUCTURES: No significant abnormality. URINARY BLADDER: No significant abnormality. REPRODUCTIVE ORGANS: No significant abnormality. ADDITIONAL FINDINGS: Soft tissue anasarca. SKELETAL SYSTEM: No significant abnormality. IMPRESSION: 1. Suspected inflammatory process deep within the pelvis with associated small bowel obstruction. The appendix is unremarkable. 2. Fluid at the right lower quadrant and pelvis without well-defined fluid collection. 3. Soft tissue anasarca. Signer Name: Benoit Dixon MD Signed: 10/09/2021 9:00 PM Workstation Name: [id number]
--- NOTE | 2021-10-09 21:06 | Emergency Department Report ---
ED General Adult HPI - General Chief complaint: Abdominal Pain Stated complaint: ABD PAIN Time Seen by Provider: 10/09/21 17:30 Source: patient Mode of arrival: Wheelchair Limitations: No Limitations - History of Present Illness Initial comments: The patient presents to the emergency department the chief complaint of abdominal pain has been present for the last 2 to 3 days. Patient states that the pain radiates into her pelvis and her bottom. Patient states she was discharged from [facility] on Wednesday where it was discovered that she had a ruptured fibroid and some other gynecological finding which seem to be an ovarian cyst per the patient. Patient states her last bowel movement was yesterday. Patient does endorse having nausea but denies vomiting. Patient denies chest pain, shortness breath, or headache -: Sudden Location: abdomen Radiation: non-radiation Severity scale (0 -10): 10 Quality: sharp Consistency: constant Improves with: none Worsens with: none Associated Symptoms: denies other symptoms Treatments Prior to Arrival: none - Related Data Home Medications Medication Instructions Recorded Confirmed Last Taken glipiZIDE [glipiZIDE XL] 10 mg PO DAILY 11/22/14 11/27/14 11/21/14 Previous Rx's Medication Instructions Recorded Last Taken Type metFORMIN [Glucophage] 1,000 mg PO BID #60 tablet 11/27/14 Unknown Rx Acetaminophen [Non-Aspirin Extra 500 mg PO Q6HR PRN #30 tablet 09/17/20 Unknown Rx Strength] Amlodipine Besylate [Norvasc] 10 mg PO QDAY #60 tablet 09/17/20 Unknown Rx Metoclopramide [Reglan] 10 mg PO QID PRN #30 tablet 09/17/20 Unknown Rx Allergies Allergy/AdvReac Type Severity Reaction Status Date / Time heparin Allergy Swelling Verified 10/09/21 17:20 lisinopril AdvReac Unknown Verified 09/17/20 17:41 ED Review of Systems ROS: Stated complaint: ABD PAIN Other details as noted in HPI Comment: All other systems reviewed and negative Constitutional: denies: chills, fever Eyes: denies: eye pain, eye discharge, vision change ENT: denies: ear pain, throat pain Respiratory: denies: cough, shortness of breath, wheezing Cardiovascular: denies: chest pain, palpitations Endocrine: no symptoms reported Gastrointestinal: abdominal pain. denies: nausea, diarrhea Genitourinary: denies: urgency, dysuria, discharge Musculoskeletal: denies: back pain, joint swelling, arthralgia Skin: denies: rash, lesions Neurological: denies: headache, weakness, paresthesias Psychiatric: denies: anxiety, depression Hematological/Lymphatic: denies: easy bleeding, easy bruising ED Past Medical Hx - Past Medical History Hx Hypertension: Yes Hx Diabetes: Yes Hx GERD: Yes Hx Renal Disease: Yes (ckd- stage 3) Additional medical history: Boil with I&D, anemia. Uterine Fibroids - Social History Smoking Status: Never Smoker Substance Use Type: None - Medications Home Medications: Home Medications Medication Instructions Recorded Confirmed Last Taken Type glipiZIDE [glipiZIDE XL] 10 mg PO DAILY 11/22/14 11/27/14 11/21/14 History metFORMIN [Glucophage] 1,000 mg PO BID #60 tablet 11/27/14 Unknown Rx Acetaminophen [Non-Aspirin Extra 500 mg PO Q6HR PRN #30 tablet 09/17/20 Unknown Rx Strength] Amlodipine Besylate [Norvasc] 10 mg PO QDAY #60 tablet 09/17/20 Unknown Rx Metoclopramide [Reglan] 10 mg PO QID PRN #30 tablet 09/17/20 Unknown Rx ED Physical Exam - General Limitations: No Limitations General appearance: alert, in no apparent distress - Head Head exam: Present: atraumatic, normocephalic - Eye Eye exam: Present: normal appearance, PERRL - ENT ENT exam: Present: mucous membranes moist - Neck Neck exam: Present: normal inspection - Respiratory Respiratory exam: Present: normal lung sounds bilaterally. Absent: respiratory distress - Cardiovascular Cardiovascular Exam: Present: regular rate, normal rhythm. Absent: systolic murmur, diastolic murmur, rubs, gallop - GI/Abdominal GI/Abdominal exam: Present: soft, tenderness (Diffusely tender to palpation), normal bowel sounds. Absent: distended - Extremities Exam Extremities exam: Present: normal inspection - Back Exam Back exam: Present: normal inspection - Neurological Exam Neurological exam: Present: alert, oriented X3, CN II-XII intact. Absent: motor sensory deficit - Psychiatric Psychiatric exam: Present: normal affect, normal mood - Skin Skin exam: Present: warm, dry, intact, normal color. Absent: rash ED Course Vital Signs 10/09/21 10/09/21 17:22 18:46 Temperature 98.1 F Pulse Rate 85 Respiratory 17 16 Rate Blood Pressure 183/88 O2 Sat by Pulse 100 Oximetry ED Medical Decision Making - Lab Data Result diagrams: 10/09/21 17:32 10/09/21 17:32 - Radiology Data Radiology results: report reviewed - Medical Decision Making Patient received 3 doses of IV pain medication with little improvement of her s ymptoms Discussed the patient CT findings with Dr. Sanchez Since the patient is nauseous and without vomiting at this time the NG tube will be held and the patient will be n.p.o. Reviewed the patient's CT findings from her recent visit to [facility] emergency department on 09/30/21 which showed dilated small bowel loops in the pelvis along with ovarian cyst and fibroids. There was no obstruction on the CT from [facility] Patient is a hemodialysis recipient of the Vas-Cath in the subclavian. Patient states her dialysis days are Wednesday, Wednesday, Fridays with her last dialysis being on Wednesday. Patient reports that Dr. Kiran is her valuer Critical care attestation.: If time is entered above; I have spent that time in minutes in the direct care of this critically ill patient, excluding procedure time. ED Disposition Clinical Impression: Intractable abdominal pain, SBO (small bowel obstruction) Disposition: [facility] Is pt being admited?: No Does the pt Need Aspirin: No Condition: Stable Instructions: Abdominal Pain (ED)
[2021-10-09] MEDS ORDERED: HYDROmorphone 1 MG/1 ML INJ IV ONE ×2 (21:49→23:16)
[2021-10-09 23:15] LABS: Bilirubin,Urine NEG (Negative); Blood,Urine SM (Negative); Color,Urine Yellow (Yellow); Mucus,Urine FEW /HPF; Urobilinogen,Urine < 2.0 mg/dL (<2.0)
[2021-10-09 23:18] LABS: Protein,Urine >500 mg/dL (Negative)
[2021-10-09] MEDS ORDERED: DEXTROSE 50% IN WATER (25GM) 50 ML SYRINGE IV PRN (23:44)
[2021-10-09] MEDS ORDERED: ONDANSETRON 4 MG/2 ML INJ IV PRN (23:44)
[2021-10-09] MEDS ORDERED: ACETAMINOPHEN 325 MG TAB PO PRN (23:44)
--- NOTE | 2021-10-09 23:59 | History and Physical Report ---
History of Present Illness Date of examination: 10/09/21 Date of admission: 10/09/2021 Chief complaint: Abdominal pain History of present illness: 46-year-old -[place] female with known history of hypertension, diabetes mellitus, end-stage renal disease on dialysis on Mondays, Wednesdays and Fridays presents to the emergency room today complaining of abdominal pain which has been ongoing for the past 3 days. Abdominal pain is said to be more in the lower abdomen. She has had associated nausea but no vomiting and no diarrhea. She denies any constipation, no fever or chills, no chest pain or shortness of breath, no hematuria or dysuria. She denies any bright red blood per rectum. Patient has been compliant with her dialysis. She was just discharged from [facility] about 4 days ago with similar complaints. Work-up at that time reveals a ruptured fibroid and ovarian cysts. Work-up today, CT of the abdomen and pelvis reveals: 1. Suspected inflammatory process deep within the pelvis with associated small bowel obstruction. The appendix is unremarkable. 2. Fluid at the right lower quadrant and pelvis without well-defined fluid co llection. 3. Soft tissue anasarca. Labs reveal hemoglobin of 9.3, BUN of 31 and creatinine of 8.1 Urinalysis reveals some WBCs. General surgeon on-call Dr. Sanchez was consulted by the ER physician regarding the findings on the CT of the abdomen and pelvis. Recommendation was to make patient n.p.o. and patient will be promptly evaluated. Past History Past Medical History: anemia, diabetes, dialysis, ESRD, GERD, hypertension, other (Uterine fibroids) Past Surgical History: Other (I&D for boil) Social history: no significant social history Family history: no significant family history Medications and Allergies Allergies Allergy/AdvReac Type Severity Reaction Status Date / Time heparin Allergy Swelling Verified 10/09/21 17:20 lisinopril AdvReac Unknown Verified 09/17/20 17:41 Home Medications Medication Instructions Recorded Confirmed Last Taken Type glipiZIDE [glipiZIDE XL] 10 mg PO DAILY 11/22/14 11/27/14 11/21/14 History metFORMIN [Glucophage] 1,000 mg PO BID #60 tablet 11/27/14 Unknown Rx Acetaminophen [Non-Aspirin Extra 500 mg PO Q6HR PRN #30 tablet 09/17/20 Unknown Rx Strength] Amlodipine Besylate [Norvasc] 10 mg PO QDAY #60 tablet 09/17/20 Unknown Rx Metoclopramide [Reglan] 10 mg PO QID PRN #30 tablet 09/17/20 Unknown Rx Active Meds: Active Medications Acetaminophen (Acetaminophen 325 Mg Tab) 650 mg PO Q4H PRN PRN Reason: Pain MILD(1-3)/Fever >100.5/ZHANG Dextrose (Dextrose 50% In Water (25gm) 50 Ml Syringe) 0 ml IV Q30MIN PRN; Protocol PRN Reason: Hypoglycemia Insulin Human Lispro (Insulin Lispro 100 Unit/Ml) 0 unit SUB-Q ACHS MELLISSA; Protocol Magnesium Hydroxide (Magnesium Hydroxide (Mom) Oral Liqd Udc) 30 ml PO Q4H PRN PRN Reason: Constipation Morphine Sulfate (Morphine 2 Mg/1 Ml Inj) 2 mg IV Q4H PRN PRN Reason: Pain, Moderate (4-6) Morphine Sulfate (Morphine 4 Mg/1 Ml Inj) 4 mg IV Q4H PRN PRN Reason: Pain , Severe (7-10) Ondansetron HCl (Ondansetron 4 Mg/2 Ml Inj) 4 mg IV Q8H PRN PRN Reason: Nausea And Vomiting Sodium Chloride (Sodium Chloride 0.9% 10 Ml Flush Syringe) 10 ml IV BID MELLISAS Sodium Chloride (Sodium Chloride 0.9% 10 Ml Flush Syringe) 10 ml IV PRN PRN PRN Reason: LINE FLUSH Review of Systems Constitutional: no fever, no chills Ears, nose, mouth and throat: no nasal congestion, no sore throat Cardiovascular: other (Vas-Cath on right anterior chest wall), no chest pain, no palpitations Gastrointestinal: nausea, no vomiting, no diarrhea, no constipation, no BRBPR, no melena Genitourinary Female: no flank pain, no dysuria, no hematuria Musculoskeletal: no neck pain Integumentary: no rash, no pruritis Neurological: no headaches, no confusion Psychiatric: no anxiety, no depression Endocrine: no polydipsia, no polyuria, no nocturia Exam - Constitutional Vitals: Temp Pulse Resp BP Pulse Ox 98.1 F 85 16 183/88 100 10/09/21 17:22 10/09/21 17:22 10/09/21 18:46 10/09/21 17:22 10/09/21 17:22 General appearance: Present: no acute distress, well-nourished - EENT Eyes: Present: PERRL, EOM intact. Absent: scleral icterus ENT: hearing intact, clear oral mucosa, dentition normal - Neck Neck: Present: supple, normal ROM - Respiratory Respiratory effort: normal Respiratory: bilateral: CTA - Cardiovascular Rhythm: regular Heart Sounds: Present: S1 & S2, rub, click. Absent: systolic murmur, diastolic murmur - Extremities Extremities: no ischemia, pulses intact, pulses symmetrical, No edema, normal temperature, normal color, Full ROM Peripheral Pulses: within normal limits - Abdominal General gastrointestinal: Present: soft, tender (Tenderness in the lower quadrants bilaterally with minimal guarding. No rebound tenderness.), non- distended, normal bowel sounds. Absent: mass - Integumentary Integumentary: Present: clear, warm, dry. Absent: rash - Musculoskeletal Musculoskeletal: strength equal bilaterally - Psychiatric Psychiatric: appropriate mood/affect, intact judgment & insight, memory intact, cooperative - Neurologic Neurologic: CNII-XII intact, no focal deficits, moves all extremities - Additional findings Additional findings: Skin: Right anterior chest wall Vas-Cath. Results - Labs CBC & Chem 7: 10/09/21 17:32 10/09/21 17:32 Labs: Abnormal lab results 10/09/21 10/09/21 10/09/21 Range/Units 17:32 17:32 Unknown RBC 3.42 L (3.65-5.03) M/mm3 Hgb 9.3 L (10.1-14.3) gm/dl MCH 27 L (28-32) pg RDW 18.1 H (13.2-15.2) % Plt Count 608 H (140-440) K/mm3 Lymph % (Auto) 11.1 L (13.4-35.0) % Lymph # (Auto) 1.0 L (1.2-5.4) K/mm3 Seg Neutrophils % 82.7 H (40.0-70.0) % BUN 31 H (7-17) mg/dL Creatinine 8.1 H (0.6-1.2) mg/dL Glucose 103 H (65-100) mg/dL ALT < 5 L (7-56) units/L Albumin 3.2 L (3.9-5) g/dL Urine WBC (Auto) 15.0 H (0.0-6.0) /HPF Assessment and Plan - Patient Problems (1) Intractable abdominal pain Current Visit: Yes Status: Acute Plan to address problem: Possibly secondary to the small bowel obstruction. Patient placed on IV analgesic medication for pain control. (2) SBO (small bowel obstruction) Current Visit: Yes Status: Acute Plan to address problem: Patient has been made n.p.o. Await evaluation and recommendations from surgery. (3) End stage renal disease on dialysis Current Visit: Yes Status: Acute Plan to address problem: Patient gets dialysis on Mondays, Wednesdays and Fridays. Has a Vas-Cath in the right anterior chest wall Electrical Machinist is Dr. Kiran (4) Diabetes mellitus Current Visit: Yes Status: Acute Plan to address problem: We will monitor Accu-Cheks closely. Patient on sliding scale insulin. (5) Hypertension Current Visit: Yes Status: Acute Plan to address problem: We will resume routine home medications and monitor vital signs closely. (6) DVT prophylaxis Current Visit: Yes Status: Acute Plan to address problem: Patient placed on sequential compression device. (7) Full code status Current Visit: Yes Status: Acute Plan to address problem: Patient is full code.
[2021-10-10] MEDS: MORPHINE 2 MG/1 ML INJ IV PRN ×3 (03:49→10:46)
[2021-10-10 06:35] LABS: Basophils % (Auto) 0.3 % (0.0-1.8); Eosinophils # (Auto) 0.1 K/mm3 (0.0-0.4); Eosinophils % (Auto) 0.4 % (0.0-4.3); Hematocrit 28.8 % (30.3-42.9); Hemoglobin 8.8 gm/dl (10.1-14.3); Lymphocytes # (Auto) 1.3 K/mm3 (1.2-5.4); Mean Corpuscular HGB Conc 31 % (30-34); Mean Corpuscular Volume 88 fl (79-97); Monocytes # (Auto) 0.4 K/mm3 (0.0-0.8); Platelet Count 675 K/mm3 (140-440); Red Blood Count 3.29 M/mm3 (3.65-5.03); Red Cell Distribution Width 18.1 % (13.2-15.2)
[2021-10-10 06:38] LABS: Calcium 8.4 mg/dL (8.4-10.2)
[2021-10-10 06:44] LABS: INR 1.18 (0.87-1.13)
[2021-10-10] MEDS: INSULIN LISPRO 100 UNIT/ML SUB-Q SCH ×4 (09:44→21:43)
--- NOTE | 2021-10-10 10:28 | Consultation ---
History of Present Illness Consult date: 10/10/21 Reason for consult: abdominal pain - History of present illness History of present illness: 46-year-old female presents the emergency room with acute abdominal pain in her lower abdomen pelvis she misses some nausea but no vomiting. She had the pain started approximately 2 weeks ago. She was seen at an outside hospital 4 to 5 d ays ago with CAT scan findings suggestive of ruptured fibroids and ovarian cyst. She was discharged to home and she presented with similar pain. CT scan at this emergency room was read as showing some inflammatory loops of bowel in the pelvis and possible small bowel obstruction. Patient says that she is passing gas and had bowel movement as recent as last night. She says she was told in the past she had ovarian cysts. General surgery was called because of the CT scan read that suggested small bowel obstruction. Past History Past Medical History: anemia, diabetes, dialysis, ESRD, GERD, hypertension, other (Uterine fibroids) Past Surgical History: Other (I&D for boil) Social history: no significant social history Family history: no significant family history Medications and Allergies Allergies Allergy/AdvReac Type Severity Reaction Status Date / Time heparin Allergy Swelling Verified 10/09/21 17:20 lisinopril AdvReac Unknown Verified 09/17/20 17:41 Home Medications Medication Instructions Recorded Confirmed Last Taken Type glipiZIDE [glipiZIDE XL] 10 mg PO DAILY 11/22/14 11/27/14 11/21/14 History metFORMIN [Glucophage] 1,000 mg PO BID #60 tablet 11/27/14 Unknown Rx Acetaminophen [Non-Aspirin Extra 500 mg PO Q6HR PRN #30 tablet 09/17/20 Unknown Rx Strength] Amlodipine Besylate [Norvasc] 10 mg PO QDAY #60 tablet 09/17/20 Unknown Rx Metoclopramide [Reglan] 10 mg PO QID PRN #30 tablet 09/17/20 Unknown Rx Active Meds: Active Medications Acetaminophen (Acetaminophen 325 Mg Tab) 650 mg PO Q4H PRN PRN Reason: Pain MILD(1-3)/Fever >100.5/ZHANG Dextrose (Dextrose 50% In Water (25gm) 50 Ml Syringe) 0 ml IV Q30MIN PRN; Protocol PRN Reason: Hypoglycemia Insulin Human Lispro (Insulin Lispro 100 Unit/Ml) 0 unit SUB-Q ACHS [facility]; Protocol Last Admin: 10/10/21 09:44 Dose: Not Given Documented by: Magnesium Hydroxide (Magnesium Hydroxide (Mom) Oral Liqd Udc) 30 ml PO Q4H PRN PRN Reason: Constipation Morphine Sulfate (Morphine 2 Mg/1 Ml Inj) 2 mg IV Q4H PRN PRN Reason: Pain, Moderate (4-6) Last Admin: 10/10/21 05:35 Dose: 2 mg Documented by: Morphine Sulfate (Morphine 4 Mg/1 Ml Inj) 4 mg IV Q4H PRN PRN Reason: Pain , Severe (7-10) Ondansetron HCl (Ondansetron 4 Mg/2 Ml Inj) 4 mg IV Q8H PRN PRN Reason: Nausea And Vomiting Sodium Chloride (Sodium Chloride 0.9% 10 Ml Flush Syringe) 10 ml IV BID MELLISSA Sodium Chloride (Sodium Chloride 0.9% 10 Ml Flush Syringe) 10 ml IV PRN PRN PRN Reason: LINE FLUSH Review of Systems All systems: negative - Gastrointestinal abdominal pain, nausea, no vomiting Exam Vital Signs Temp Pulse Resp BP Pulse Ox 98.1 F 85 17 183/88 100 10/09/21 17:22 10/09/21 17:22 10/09/21 17:22 10/09/21 17:22 10/09/21 17:22 - General physical appearance Positive: well developed, no distress, moderate pain - Eyes Positive: PERRL - ENT Positive: no hearing loss - Respiratory Positive: normal expansion, normal respiratory effort - Cardiovascular Heart Sounds: Present: S1 & S2 - Extremities Extremities: no ischemia - Abdomen Abdomen: Present: soft, guarding, other (Pain focal to the suprapubic and right lower quadrant). Absent: distended, rebound, rigid - Rectum Rectum: no hemorrhoids, no masses, no bleeding - Neurologic Neurologic: alert and oriented to time, place and person, motor strength and sensation are grossly intact Results - Labs 10/10/21 05:11 10/10/21 05:11 Abnormal lab results 10/09/21 10/09/21 10/09/21 Range/Units 17:32 17:32 Unknown WBC (4.5-11.0) K/mm3 RBC 3.42 L (3.65-5.03) M/mm3 Hgb 9.3 L (10.1-14.3) gm/dl Hct (30.3-42.9) % MCH 27 L (28-32) pg RDW 18.1 H (13.2-15.2) % Plt Count 608 H (140-440) K/mm3 Lymph % (Auto) 11.1 L (13.4-35.0) % Lymph # (Auto) 1.0 L (1.2-5.4) K/mm3 Seg Neutrophils % 82.7 H (40.0-70.0) % Seg Neutrophils # (1.8-7.7) K/mm3 PT (12.2-14.9) Sec. INR (0.87-1.13) Chloride (98-107) mmol/L Carbon Dioxide (22-30) mmol/L BUN 31 H (7-17) mg/dL Creatinine 8.1 H (0.6-1.2) mg/dL Glucose 103 H (65-100) mg/dL ALT < 5 L (7-56) units/L Albumin 3.2 L (3.9-5) g/dL Urine WBC (Auto) 15.0 H (0.0-6.0) /HPF 10/10/21 10/10/21 10/10/21 Range/Units 05:11 05:11 05:11 WBC 13.4 H (4.5-11.0) K/mm3 RBC 3.29 L (3.65-5.03) M/mm3 Hgb 8.8 L (10.1-14.3) gm/dl Hct 28.8 L (30.3-42.9) % MCH 27 L (28-32) pg RDW 18.1 H (13.2-15.2) % Plt Count 675 H (140-440) K/mm3 Lymph % (Auto) 10.0 L (13.4-35.0) % Lymph # (Auto) (1.2-5.4) K/mm3 Seg Neutrophils % 86.3 H (40.0-70.0) % Seg Neutrophils # 11.6 H (1.8-7.7) K/mm3 PT 16.3 H (12.2-14.9) Sec. INR 1.18 H (0.87-1.13) Chloride 96.3 L (98-107) mmol/L Carbon Dioxide 21 L (22-30) mmol/L BUN 37 H (7-17) mg/dL Creatinine 8.2 H (0.6-1.2) mg/dL Glucose 112 H (65-100) mg/dL ALT (7-56) units/L Albumin (3.9-5) g/dL Urine WBC (Auto) (0.0-6.0) /HPF Diabetes panel 10/09/21 10/10/21 Range/Units 17:32 05:11 Sodium 140 137 (137-145) mmol/L Potassium 4.2 4.4 (3.6-5.0) mmol/L Chloride 98.5 96.3 L (98-107) mmol/L Carbon Dioxide 22 21 L (22-30) mmol/L BUN 31 H 37 H (7-17) mg/dL Creatinine 8.1 H 8.2 H (0.6-1.2) mg/dL Glucose 103 H 112 H (65-100) mg/dL Calcium 8.6 8.4 (8.4-10.2) mg/dL AST 15 (5-40) units/L ALT < 5 L (7-56) units/L Alkaline Phosphatase 70 (35-129) units/L Total Protein 7.4 (6.3-8.2) g/dL Albumin 3.2 L (3.9-5) g/dL Calcium panel 10/09/21 10/10/21 Range/Units 17:32 05:11 Calcium 8.6 8.4 (8.4-10.2) mg/dL Albumin 3.2 L (3.9-5) g/dL Pituitary panel 10/09/21 10/10/21 Range/Units 17:32 05:11 Sodium 140 137 (137-145) mmol/L Potassium 4.2 4.4 (3.6-5.0) mmol/L Chloride 98.5 96.3 L (98-107) mmol/L Carbon Dioxide 22 21 L (22-30) mmol/L BUN 31 H 37 H (7-17) mg/dL Creatinine 8.1 H 8.2 H (0.6-1.2) mg/dL Glucose 103 H 112 H (65-100) mg/dL Calcium 8.6 8.4 (8.4-10.2) mg/dL Adrenal panel 10/09/21 10/10/21 Range/Units 17:32 05:11 Sodium 140 137 (137-145) mmol/L Potassium 4.2 4.4 (3.6-5.0) mmol/L Chloride 98.5 96.3 L (98-107) mmol/L Carbon Dioxide 22 21 L (22-30) mmol/L BUN 31 H 37 H (7-17) mg/dL Creatinine 8.1 H 8.2 H (0.6-1.2) mg/dL Glucose 103 H 112 H (65-100) mg/dL Calcium 8.6 8.4 (8.4-10.2) mg/dL Total Bilirubin 0.20 (0.1-1.2) mg/dL AST 15 (5-40) units/L ALT < 5 L (7-56) units/L Alkaline Phosphatase 70 (35-129) units/L Total Protein 7.4 (6.3-8.2) g/dL Albumin 3.2 L (3.9-5) g/dL - Imaging CT scan - abdomen: report reviewed, image reviewed CT scan - pelvis: report reviewed, image reviewed Assessment and Plan 46-year-old female with abdominal pain and history of diabetes end-stage renal disease. Afebrile and stable. CT scan of the abdomen and pelvis was reviewed in person with Dr. Sahni this morning. He disagrees with the overnight interpretation of the CT scan and feels that the findings in the pelvis are more consistent with adnexal pathology possible tubo-ovarian abscess. He does not consider the small bowel findings to be consistent with small bowel obstruction. He recommended repeating the CAT scan with oral contrast to separate the bowel loops from the adnexal pathology. Etiology of pain is unclear however from a general surgery perspective feel that it is unlikely due to a small bowel obstruction since clinically since patient has not had any vomiting, she is hungry, and she has been passing recent flatus and having bowel movements. We will follow up CT scan results, however recommend consulting gynecology for evaluation of adnexal mass. If repeat CT scan rules out bowel pathology requiring surgical intervention, will sign off.
[2021-10-10] MEDS ORDERED: SODIUM CHLORIDE 0.9% 100 ML IV PRN (10:42)
[2021-10-10] MEDS ORDERED: hydrALAZINE 20 MG/1 ML INJ IV PRN (11:24)
[2021-10-10] MEDS ORDERED: cefTRIAXone/NS 1 GM/50 ML 1 GM/50 ML BAG IV SCH (12:00)
[2021-10-10] MEDS ORDERED: amLODIPine 5 MG TAB PO SCH (12:00)
[2021-10-10] MEDS: amLODIPine 10 MG TAB PO SCH (13:11)
[2021-10-10] MEDS: cefTRIAXone/NS 2 GM/100 ML 2 GM/100 ML BAG IV SCH (13:12)
--- NOTE | 2021-10-10 14:11 | Progress Note ---
Assessment and Plan -- Intractable abdominal pain Likely due to pelvic abscess General surgery ruled out any intestinal obstruction Patient placed on IV antibiotics and analgesic medication for pain control. -- possible pelvic abscess Patient has been initiated on antibiotic Await evaluation and recommendations from [employer] -- End stage renal disease on dialysis Patient gets dialysis on Mondays, Wednesdays and Fridays. Has a perm-Cath in the right anterior chest wall Payroll Bookkeeper is Dr. Kiran -- Diabetes mellitus We will monitor Accu-Cheks closely. Patient on sliding scale insulin. -- Hypertension Will resume routine home medications and monitor vital signs closely. -- DVT prophylaxis Patient placed on sequential compression device. -- Full code status Daily clinical course: 12/10/20; discussed with general surgery, patient does not have any small bowel obstruction, most likely patient has pelvic abscess, initiated on empiric antibiotics, and consulted [employer]. Patient also will need CT abdomen pelvis with oral contrast -ordered. Will start on clear liquid diet for now. Subjective Date of service: 10/10/21 Interval history: Patient seen and examined. Medical records and medication list reviewed. No acute event overnight noted by the RN. Patient denies any chest pain or difficulty breathing. Patient complains of lower abdominal pain Discussed plan of care at bedside with patient. Objective - Exam Narrative Exam: GENERAL: well-developed and well-nourished AAF lying on bed appeared to be in no discomfort. HEENT: Normocephalic. Atraumatic. No conjunctival congestion or icterus. Patient has moist mucous membranes. NECK: Supple. Trachea midline. CHEST/LUNGS: Clear to auscultated bilaterally, breathing nonlabored. No wheezes crackles or rhonchi. HEART/CARDIOVASCULAR: Regular in rate and rhythm. S1 and S2 positive. ABDOMEN: Abdomen is soft, slightly tender. Patient has normal bowel sounds. SKIN: There is no rash. Warm and dry. NEURO: No focal motor deficit. Follows command. MUSCULOSKELETAL: No joint effusion or tenderness. EXTRIMITY: No edema, no cyanosis or clubbing. PSYCH: Cooperative. - Constitutional Vitals: Vital Signs - 12hr 10/10/21 10/10/21 10/10/21 03:49 04:19 05:35 Temperature Pulse Rate Respiratory 18 18 18 Rate Blood Pressure O2 Sat by Pulse Oximetry 10/10/21 10/10/21 10/10/21 06:14 11:20 13:11 Temperature 98.6 F 98.8 F Pulse Rate 100 H 95 H Respiratory 20 20 Rate Blood Pressure 187/92 194/96 194/96 O2 Sat by Pulse 96 96 Oximetry - Labs CBC & Chem 7: 10/10/21 05:11 10/11/21 05:35 Labs: Abnormal lab results 10/09/21 10/09/21 10/09/21 Range/Units 17:32 17:32 Unknown WBC (4.5-11.0) K/mm3 RBC 3.42 L (3.65-5.03) M/mm3 Hgb 9.3 L (10.1-14.3) gm/dl Hct (30.3-42.9) % MCH 27 L (28-32) pg RDW 18.1 H (13.2-15.2) % Plt Count 608 H (140-440) K/mm3 Lymph % (Auto) 11.1 L (13.4-35.0) % Lymph # (Auto) 1.0 L (1.2-5.4) K/mm3 Seg Neutrophils % 82.7 H (40.0-70.0) % Seg Neutrophils # (1.8-7.7) K/mm3 PT (12.2-14.9) Sec. INR (0.87-1.13) Chloride (98-107) mmol/L Carbon Dioxide (22-30) mmol/L BUN 31 H (7-17) mg/dL Creatinine 8.1 H (0.6-1.2) mg/dL Glucose 103 H (65-100) mg/dL POC Glucose (70-105) mg/dL ALT < 5 L (7-56) units/L Albumin 3.2 L (3.9-5) g/dL Urine WBC (Auto) 15.0 H (0.0-6.0) /HPF 10/10/21 10/10/21 10/10/21 Range/Units 05:11 05:11 05:11 WBC 13.4 H (4.5-11.0) K/mm3 RBC 3.29 L (3.65-5.03) M/mm3 Hgb 8.8 L (10.1-14.3) gm/dl Hct 28.8 L (30.3-42.9) % MCH 27 L (28-32) pg RDW 18.1 H (13.2-15.2) % Plt Count 675 H (140-440) K/mm3 Lymph % (Auto) 10.0 L (13.4-35.0) % Lymph # (Auto) (1.2-5.4) K/mm3 Seg Neutrophils % 86.3 H (40.0-70.0) % Seg Neutrophils # 11.6 H (1.8-7.7) K/mm3 PT 16.3 H (12.2-14.9) Sec. INR 1.18 H (0.87-1.13) Chloride 96.3 L (98-107) mmol/L Carbon Dioxide 21 L (22-30) mmol/L BUN 37 H (7-17) mg/dL Creatinine 8.2 H (0.6-1.2) mg/dL Glucose 112 H (65-100) mg/dL POC Glucose (70-105) mg/dL ALT (7-56) units/L Albumin (3.9-5) g/dL Urine WBC (Auto) (0.0-6.0) /HPF 10/10/21 Range/Units 12:10 WBC (4.5-11.0) K/mm3 RBC (3.65-5.03) M/mm3 Hgb (10.1-14.3) gm/dl Hct (30.3-42.9) % MCH (28-32) pg RDW (13.2-15.2) % Plt Count (140-440) K/mm3 Lymph % (Auto) (13.4-35.0) % Lymph # (Auto) (1.2-5.4) K/mm3 Seg Neutrophils % (40.0-70.0) % Seg Neutrophils # (1.8-7.7) K/mm3 PT (12.2-14.9) Sec. INR (0.87-1.13) Chloride (98-107) mmol/L Carbon Dioxide (22-30) mmol/L BUN (7-17) mg/dL Creatinine (0.6-1.2) mg/dL Glucose (65-100) mg/dL POC Glucose 107 H (70-105) mg/dL ALT (7-56) units/L Albumin (3.9-5) g/dL Urine WBC (Auto) (0.0-6.0) /HPF
--- NOTE | 2021-10-10 14:21 | Cat Scan Report ---
CT ABDOMEN AND PELVIS WITHOUT CONTRAST INDICATION / CLINICAL INFORMATION: Abdominal pain, previous abnormal CT demonstrating suspected inflammatory process in the pelvis. Deli neate bowel from tubo-ovarian abscess. TECHNIQUE: Axial CT images were obtained through the abdomen and pelvis without IV contrast and with oral contra st. All CT scans at this location are performed using CT dose reduction for ALARA by means of automa natanael exposure control. COMPARISON: CT abdomen and pelvis with contrast from 10/09/2021. FINDINGS: LOWER CHEST: There is bibasilar atelectasis without other significant abnormalities. LIVER: No significant abnormality. GALLBLADDER: No significant abnormality. BILE DUCTS: No significant abnormality. PANCREAS: No significant abnormality. SPLEEN: No significant abnormality. ADRENALS: No significant abnormality. KIDNEYS / URETERS: A 9 mm simple-appearing cyst is again seen along the right lower renal pole. No ot her significant abnormality. STOMACH / SMALL BOWEL: No significant abnormality. COLON: A large amount of stool is seen throughout the colon without other acute findings. APPENDIX: No significant abnormality. PERITONEUM: A small amount of free fluid is seen along the pelvis with generalized pelvic fat strandi ng. No free air. No fluid collection. LYMPH NODES: No significant adenopathy. AORTA / ARTERIES: Normal caliber of the aorta with moderate generalized atherosclerosis. IVC / VEINS: No significant abnormality. URINARY BLADDER: Mostly collapsed with secondary wall thickening. No distinct acute abnormality. REPRODUCTIVE ORGANS: There is suspected enlargement of the right ovary with a probable tubo-ovarian a bscess collectively measuring 7.9 x 6.4 cm in axial dimensions on image 141 of series 2 and 7.2 cm in craniocaudal dimension on image 45 of the coronal series. No other significant abnormality. ADDITIONAL FINDINGS: Anasarca is again noted. BONES: No significant abnormality. IMPRESSION: 1. Suspected right tubo-ovarian abscess as above with surrounding marked inflammation. 2. Additional findings as above. Signer Name: Ty Watson MD Signed: 10/10/2021 2:17 PM Workstation Name: [id number]
[2021-10-10] MEDS: MORPHINE 4 MG/1 ML INJ IV PRN ×3 (14:57→23:42)
--- NOTE | 2021-10-10 15:04 | Event Note ---
Date: 10/10/[address] scan with radiologist. It is read as normal bowel with a possible tubo-ovarian abscess. No surgical intervention indicated at this time. Recommend pearl peller consult for further evaluation and treatment.
[2021-10-10 15:43] LABS: Hepatitis C Virus Antibody Non-Reactive (NonReactive)
[2021-10-10 15:45] LABS: Hepatitis B Surface Antigen Non-Reactive (Negative)
--- NOTE | 2021-10-10 16:17 | Event Note ---
Date: 10/10/21 chart reviewed. Full consult to follow.
--- NOTE | 2021-10-10 17:23 | Consultation ---
History of Present Illness - Reason for Consult Consult date: 10/10/21 end stage renal disease - History of Present Illness This is a 46-year-old woman with end-stage renal disease on hemodialysis, hypertension and diabetes who presents with two-week history of abdominal pain. There is no associated nausea, vomiting or constipation. Nephrology was consulted for ESRD management. Past History Past Medical History: anemia, diabetes, dialysis, ESRD, GERD, hypertension, other (Uterine fibroids) Past Surgical History: Other (I&D for boil) Social history: no significant social history Family history: no significant family history Medications and Allergies Allergies Allergy/AdvReac Type Severity Reaction Status Date / Time heparin Allergy Swelling Verified 10/09/21 17:20 lisinopril AdvReac Unknown Verified 09/17/20 17:41 Home Medications Medication Instructions Recorded Confirmed Last Taken Type glipiZIDE [glipiZIDE XL] 10 mg PO DAILY 11/22/14 11/27/14 11/21/14 History metFORMIN [Glucophage] 1,000 mg PO BID #60 tablet 11/27/14 Unknown Rx Acetaminophen [Non-Aspirin Extra 500 mg PO Q6HR PRN #30 tablet 09/17/20 Unknown Rx Strength] Amlodipine Besylate [Norvasc] 10 mg PO QDAY #60 tablet 09/17/20 Unknown Rx Metoclopramide [Reglan] 10 mg PO QID PRN #30 tablet 09/17/20 Unknown Rx Active Meds: Active Medications Acetaminophen (Acetaminophen 325 Mg Tab) 650 mg PO Q4H PRN PRN Reason: Pain MILD(1-3)/Fever >100.5/ZHANG Amlodipine Besylate (Amlodipine 10 Mg Tab) 10 mg PO DAILY [facility] Last Admin: 10/10/21 13:11 Dose: 10 mg Documented by: Dextrose (Dextrose 50% In Water (25gm) 50 Ml Syringe) 0 ml IV Q30MIN PRN; Protocol PRN Reason: Hypoglycemia Hydralazine HCl (Hydralazine 20 Mg/1 Ml Inj) 10 mg IV Q30MIN PRN PRN Reason: Hypertension Sodium Chloride (Nacl 0.9%) 100 mls @ 999 mls/hr IV SMITA PRN PRN Reason: Hypotension Ceftriaxone Sodium (Rocephin/Ns 2 Gm/100 Ml) 2 gm in 100 mls @ 200 mls/hr IV Q24H MELLISSA Last Admin: 10/10/21 13:12 Dose: 200 mls/hr Documented by: Metronidazole (Flagyl 500 Mg/100 Ml) 500 mg in 100 mls @ 100 mls/hr IV Q8H MELLISSA; Protocol Doxycycline Hyclate 100 mg/ (Sodium Chloride) 250 mls @ 250 mls/hr IV Q12H MELLISSA; Protocol Insulin Human Lispro (Insulin Lispro 100 Unit/Ml) 0 unit SUB-Q ACHS MELLISSA; Prot ocol Last Admin: 10/10/21 12:59 Dose: Not Given Documented by: Magnesium Hydroxide (Magnesium Hydroxide (Mom) Oral Liqd Udc) 30 ml PO Q4H PRN PRN Reason: Constipation Morphine Sulfate (Morphine 2 Mg/1 Ml Inj) 2 mg IV Q4H PRN PRN Reason: Pain, Moderate (4-6) Last Admin: 10/10/21 10:46 Dose: 2 mg Documented by: Morphine Sulfate (Morphine 4 Mg/1 Ml Inj) 4 mg IV Q4H PRN PRN Reason: Pain , Severe (7-10) Last Admin: 10/10/21 14:57 Dose: 4 mg Documented by: Ondansetron HCl (Ondansetron 4 Mg/2 Ml Inj) 4 mg IV Q8H PRN PRN Reason: Nausea And Vomiting Sodium Chloride (Sodium Chloride 0.9% 10 Ml Flush Syringe) 10 ml IV BID MELLISSA Last Admin: 10/10/21 10:51 Dose: 10 ml Documented by: Sodium Chloride (Sodium Chloride 0.9% 10 Ml Flush Syringe) 10 ml IV PRN PRN PRN Reason: LINE FLUSH Review of Systems Constitutional: no fever, no chills Ears, nose, mouth and throat: no nasal congestion, no nasal discharge Cardiovascular: no edema, no syncope Respiratory: no cough, no shortness of breath Gastrointestinal: abdominal pain, no constipation Integumentary: no rash, no pruritis Neurological: no weakness, no parathesias Psychiatric: no anxiety, no paranoia Hematologic/Lymphatic: no easy bruising, no easy bleeding Exam - Vital Signs Vital signs: Vital Signs Temp Pulse Resp BP Pulse Ox 98.1 F 85 17 183/88 100 10/09/21 17:22 10/09/21 17:22 10/09/21 17:22 10/09/21 17:22 11/11/21 17:22 - Physical Exam Narrative exam: General: No acute distress HEENT: Oral mucosa moist Neck: Supple, no JVD Chest: Clear to auscultation bilaterally Heart: RRR, S1 and S2, no pericardial rub Abdomen: Soft, nontender, no renal bruit Extremity: No peripheral cyanosis, edema Neurological: Alert, awake, no asterixis Dermatology: No skin rash Psych: No agitation Musculoskeletal: No joint effusion Results - Lab Results 10/10/21 05:11 10/10/21 05:11 Most recent lab results Calcium 8.4 mg/dL (8.4-10.2) 10/10/21 05:11 Assessment and Plan Assessment - End-stage renal disease on hemodialysis - Hypertension - Anemia of ESRD - Hyperparathyroidism - Hyperphosphatemia - Abdominal pain Recommendations - HD today, continue MWF - Monitor labs and volume status daily and assess need for additional dialysis session - Continue home antihypertensives - Hold antihypertensives on hemodialysis days for systolics less than 160 - Epogen with HD - Continue phosphorus binders - ESRD diet with 1.4 g/kg per day protein - Renally dose medication for creatinine clearance less than 15 cc/min - Surgery and primary note reviewed
[2021-10-10] MEDS ORDERED: cefTRIAXone/NS 2 GM/100 ML 2 GM/100 ML BAG IV SCH (18:00)
[2021-10-10] MEDS ORDERED: metroNIDAZOLE/NS 500 MG/100 ML 500 MG/100 ML BAG IV SCH (18:00)
[2021-10-10] MEDS: DOXYCYCLINE HYCLATE 100 MG in SODIUM CHLORIDE 0.9% 250ML 250 ML IV SCH (18:17)
[2021-10-10] MEDS: metroNIDAZOLE 500 MG TAB PO SCH (21:37)
--- NOTE | 2021-10-10 21:49 | Consultation ---
History of Present Illness Consult date: 10/10/21 Requesting physician: MEL TIMMONS Reason for consult: other (right TOA) History of present illness: Pt presented to ed c/o rectal pain and abdominal pain. Initial CT scan was read as possible sbo and repeat was read as right TOA. Pt states she has had no nausea or vomiting. States she was seen at [facility] and treated for antibx for about 5 days and was hospitalized for 5 days. She states it was due to a cyst that had ruptured. These records are not available to me for review at this time. Since admission, anbix have been started. She has not had any temps. States she no longer has rectal pain but still has right pelvic pain but it is betting than when she presented yesterday. 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 (see H&P) Family/Genetic History: other (see H&P) Medications and Allergies Allergies Allergy/AdvReac Type Severity Reaction Status Date / Time heparin Allergy Swelling Verified 10/09/21 17:20 lisinopril AdvReac Unknown Verified 09/17/20 17:41 Home Medications Medication Instructions Recorded Confirmed Last Taken Type NIFEdipine [Nifedipine ER] 60 mg PO DAILY 10/10/21 10/10/21 10/09/21 History carvediloL [Coreg] 12.5 mg PO BID 10/10/21 10/10/21 10/09/21 History Active Meds: Active Medications Acetaminophen (Acetaminophen 325 Mg Tab) 650 mg PO Q4H PRN PRN Reason: Pain MILD(1-3)/Fever >100.5/ZHANG Amlodipine Besylate (Amlodipine 10 Mg Tab) 10 mg PO DAILY [facility] Last Admin: 10/10/21 13:11 Dose: 10 mg Documented by: Dextrose (Dextrose 50% In Water (25gm) 50 Ml Syringe) 0 ml IV Q30MIN PRN; Protocol PRN Reason: Hypoglycemia Hydralazine HCl (Hydralazine 20 Mg/1 Ml Inj) 10 mg IV Q30MIN PRN PRN Reason: Hypertension Sodium Chloride (Nacl 0.9%) 100 mls @ 999 mls/hr IV SMITA PRN PRN Reason: Hypotension Ceftriaxone Sodium (Rocephin/Ns 2 Gm/100 Ml) 2 gm in 100 mls @ 200 mls/hr IV Q24H [facility] Last Admin: 10/10/21 13:12 Dose: 200 mls/hr Documented by: Doxycycline Hyclate 100 mg/ (Sodium Chloride) 250 mls @ 250 mls/hr IV Q12H [facility]; Protocol Last Admin: 10/10/21 18:17 Dose: 250 mls/hr Documented by: Insulin Human Lispro (Insulin Lispro 100 Unit/Ml) 0 unit SUB-Q ACHS [facility]; Protocol Last Admin: 10/10/21 17:51 Dose: Not Given Documented by: Magnesium Hydroxide (Magnesium Hydroxide (Mom) Oral Liqd Udc) 30 ml PO Q4H PRN PRN Reason: Constipation Metronidazole (Metronidazole 500 Mg Tab) 500 mg PO Q8HR [facility] Last Admin: 10/10/21 21:37 Dose: 500 mg Documented by: Morphine Sulfate (Morphine 2 Mg/1 Ml Inj) 2 mg IV Q4H PRN PRN Reason: Pain, Moderate (4-6) Last Admin: 10/10/21 10:46 Dose: 2 mg Documented by: Morphine Sulfate (Morphine 4 Mg/1 Ml Inj) 4 mg IV Q4H PRN PRN Reason: Pain , Severe (7-10) Last Admin: 10/10/21 18:17 Dose: 4 mg Documented by: Ondansetron HCl (Ondansetron 4 Mg/2 Ml Inj) 4 mg IV Q8H PRN PRN Reason: Nausea And Vomiting Sodium Chloride (Sodium Chloride 0.9% 10 Ml Flush Syringe) 10 ml IV BID [facility] Last Admin: 10/10/21 21:37 Dose: 10 ml Documented by: Sodium Chloride (Sodium Chloride 0.9% 10 Ml Flush Syringe) 10 ml IV PRN PRN PRN Reason: LINE FLUSH - Vital Signs Vital signs: Vital Signs Temp Pulse Resp BP Pulse Ox 98.1 F 85 17 183/88 100 10/09/21 17:22 10/09/21 17:22 10/09/21 17:22 10/09/21 17:22 10/09/21 17:22 Temp Pulse Resp BP Pulse Ox 98.8 F 104 H 22 162/73 98 10/10/21 18:06 10/10/21 18:06 10/10/21 18:06 10/10/21 18:06 10/10/21 18:06 - Physical Exam Cardiovascular: Normal S1, Normal S2 Lungs: Positive: Clear to auscultation, Normal air movement Abdomen: Positive: normal appearance, soft. Negative: distention, tenderness, guarding Genitourinary (Female): Positive: other (deferred) Results Result Diagrams: 10/10/21 05:11 10/10/21 05:11 Abnormal lab results 10/09/21 10/10/21 10/10/21 Range/Units Unknown 05:11 05:11 WBC 13.4 H (4.5-11.0) K/mm3 RBC 3.29 L (3.65-5.03) M/mm3 Hgb 8.8 L (10.1-14.3) gm/dl Hct 28.8 L (30.3-42.9) % MCH 27 L (28-32) pg RDW 18.1 H (13.2-15.2) % Plt Count 675 H (140-440) K/mm3 Lymph % (Auto) 10.0 L (13.4-35.0) % Seg Neutrophils % 86.3 H (40.0-70.0) % Seg Neutrophils # 11.6 H (1.8-7.7) K/mm3 PT 16.3 H (12.2-14.9) Sec. INR 1.18 H (0.87-1.13) Chloride (98-107) mmol/L Carbon Dioxide (22-30) mmol/L BUN (7-17) mg/dL Creatinine (0.6-1.2) mg/dL Glucose (65-100) mg/dL POC Glucose (70-105) mg/dL Urine WBC (Auto) 15.0 H (0.0-6.0) /HPF 10/10/21 10/10/21 10/10/21 Range/Units 05:11 12:10 21:37 WBC (4.5-11.0) K/mm3 RBC (3.65-5.03) M/mm3 Hgb (10.1-14.3) gm/dl Hct (30.3-42.9) % MCH (28-32) pg RDW (13.2-15.2) % Plt Count (140-440) K/mm3 Lymph % (Auto) (13.4-35.0) % Seg Neutrophils % (40.0-70.0) % Seg Neutrophils # (1.8-7.7) K/mm3 PT (12.2-14.9) Sec. INR (0.87-1.13) Chloride 96.3 L (98-107) mmol/L Carbon Dioxide 21 L (22-30) mmol/L BUN 37 H (7-17) mg/dL Creatinine 8.2 H (0.6-1.2) mg/dL Glucose 112 H (65-100) mg/dL POC Glucose 107 H 202 H (70-105) mg/dL Urine WBC (Auto) (0.0-6.0) /HPF All other labs normal. Assessment and Plan - Patient Problems (1) TOA (tubo-ovarian abscess) Current Visit: Yes Status: Acute Plan to address problem: RECOMMENDATIONS ARE FOLLOWS: 1)CON'T ANTIBX THAT HAVE BEEN ORDERED 2)CONSULTAION WITH ID TO BE SURE SHE HAS THE APPROPRIATE COVERAGE GIVEN HER CHRONIC RENAL DZ 3)CONSULTATION WITH IR FOR CT GUIDED DRAINAGE OF THE ABSCESS 4)WILL CON'T TO FOLLOW WITH PRIMARY TEAM
[2021-10-11] MEDS: DOXYCYCLINE HYCLATE 100 MG in SODIUM CHLORIDE 0.9% 250ML 250 ML IV SCH ×2 (05:21→17:12)
[2021-10-11] MEDS: metroNIDAZOLE 500 MG TAB PO SCH ×3 (05:21→21:35)
[2021-10-11 06:06] LABS: Calcium 8.1 mg/dL (8.4-10.2)
[2021-10-11] MEDS: INSULIN LISPRO 100 UNIT/ML SUB-Q SCH ×4 (07:30→21:36)
[2021-10-11] MEDS: amLODIPine 10 MG TAB PO SCH (09:47)
--- NOTE | 2021-10-11 11:34 | Progress Note ---
Assessment and Plan - Patient Problems (1) TOA (tubo-ovarian abscess) Current Visit: Yes Status: Acute Plan to address problem: Patient states she has had a similar pain approximately 2 years ago in which she was evaluated again at [facility] and found to have a "polyp" in her left lower quadrant. She states she was diagnosed with endometriosis approximately 2 years ago but due to lack of insurance was unable to have a follow-up. At this time she does not have an indication for surgical intervention. Continue current antibiotic regimen. Further care dependent upon interventional radiology and infectious disease consultations. Possible tubo-ovarian abscess and plan of care were extensively discussed with patient. Questions were encouraged and answered. She voiced understanding and desires to proceed with current plan of care. (2) Diabetes mellitus Current Visit: Yes Status: Acute (3) End stage renal disease on dialysis Current Visit: Yes Status: Acute (4) Hypertension Current Visit: Yes Status: Acute Subjective - Subjective Date of service: 10/11/21 Interval history: Patient is doing well. Tolerating solid diet and voiding without difficulty. Patient reports: appetite normal, pain well controlled, flatus, bowel movement Objective - Vital Signs Latest vital signs: Vital Signs Temp Pulse Resp BP Pulse Ox Pulse Ox 10/11/21 09:47 93 H 150/82 10/11/21 04:50 99.3 F 93 H 17 150/80 95 10/11/21 00:12 17 10/10/21 23:42 18 10/10/21 23:27 100.0 F H 102 H 18 143/68 92 10/10/21 22:00 18 98 10/10/21 18:06 98.8 F 104 H 22 162/73 98 10/10/21 17:50 98.0 F 99 H 18 172/86 100 10/10/21 17:20 96 H 163/89 10/10/21 17:00 97 H 161/88 10/10/21 16:45 98 H 165/86 10/10/21 16:30 97 H 160/74 10/10/21 16:15 96 H 151/74 10/10/21 16:00 93 H 166/91 10/10/21 15:45 93 H 167/95 10/10/21 15:30 97 H 168/86 10/10/21 15:15 92 H 170/92 10/10/21 15:00 93 H 174/103 10/10/21 14:45 93 H 173/99 10/10/21 14:30 92 H 190/107 10/10/21 14:20 98.4 F 96 H 18 191/100 100 10/10/21 13:11 194/96 Intake and Output 10/10/21 10/11/21 10/11/21 22:59 06:59 14:59 Intake Total 650 10 Balance 650 10 Intake: IV 250 10 Doxycycline Hyclate 100 250 mg In NaCl 0.9% 250Ml 250 ml @ 250 mls/hr IV Q12H [facility] Rx#:[id number] Left Hand 10 Oral 400 Other: Total, Intake Amount 400 Voiding Method Toilet # Voids Void 2 - Exam Breasts: Present: deferred Abdomen: Present: normal appearance, soft. Absent: distention, tenderness - Labs Labs: Abnormal lab results 10/10/21 10/10/21 10/11/21 Range/Units 12:10 21:37 05:35 Sodium 134 L (137-145) mmol/L Chloride 94.6 L (98-107) mmol/L BUN 20 H (7-17) mg/dL Creatinine 6.1 H (0.6-1.2) mg/dL Glucose 118 H (65-100) mg/dL POC Glucose 107 H 202 H (70-105) mg/dL Calcium 8.1 L (8.4-10.2) mg/dL 10/11/21 Range/Units 07:35 Sodium (137-145) mmol/L Chloride (98-107) mmol/L BUN (7-17) mg/dL Creatinine (0.6-1.2) mg/dL Glucose (65-100) mg/dL POC Glucose 110 H (70-105) mg/dL Calcium (8.4-10.2) mg/dL
[2021-10-11] MEDS: cefTRIAXone/NS 2 GM/100 ML 2 GM/100 ML BAG IV SCH (12:08)
[2021-10-11] MEDS: MORPHINE 4 MG/1 ML INJ IV PRN ×3 (12:19→21:52)
[2021-10-11] MEDS: MAGNESIUM HYDROXIDE (MOM) ORAL LIQD UDC PO PRN (12:19)
--- NOTE | 2021-10-11 15:59 | Event Note ---
Date: 10/11/[address] scan reviewed. She has a pelvic fluid collection consistant with TOA that we will plan on CT guided aspiration versus drain placement Wednesday. No CT drainage abilities secondary to CT staffing on the weekends. Would continue medical management until then.
--- NOTE | 2021-10-11 18:16 | Progress Note ---
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 No issues with HD. Objective - Exam Narrative Exam: General: No acute distress HEENT: Oral mucosa moist Neck: Supple, no JVD Chest: Clear to auscultation bilaterally Heart: RRR, S1 and S2, no pericardial rub Abdomen: Soft, nontender, no renal bruit Extremity: No peripheral cyanosis, edema Neurological: Alert, awake, no asterixis Dermatology: No skin rash Psych: No agitation Musculoskeletal: No joint effusion - Vital Signs Vital signs: Vital Signs - 12hr 10/11/21 10/11/21 09:47 11:33 Temperature 98.2 F Pulse Rate 93 H 92 H Respiratory 20 Rate Blood Pressure 150/82 137/69 O2 Sat by Pulse 95 Oximetry - Lab 10/10/21 05:11 10/11/21 05:35 Most recent lab results Calcium 8.1 mg/dL (8.4-10.2) L 10/11/21 05:35 Medications & Allergies - Medications Allergies/Adverse Reactions: Allergies heparin Allergy (Verified 10/09/21 17:20) Swelling lisinopril Adverse Reaction (Verified 09/17/20 17:41) Unknown Home Medications: Home Medications Medication Instructions Recorded Confirmed Last Taken Type Albuterol Mdi (or & Nicu Only) 2 puff IH QID PRN #8.5 gram 10/11/21 Unknown Rx [ProAir HFA Inhaler] Azithromycin [Zithromax TAB] 500 mg PO QDAY #3 tablet 10/11/21 Unknown Rx amLODIPine 5 mg PO DAILY #30 tablet 10/11/21 Unknown Rx Active Medications: Generic Name Dose Route Start Last Admin Trade Name Freq PRN Reason Stop Dose Admin Acetaminophen 650 mg 10/09/21 23:44 Acetaminophen 325 Mg Tab PO Q4H PRN Pain MILD(1-3)/Fever >100.5/ZHANG Amlodipine Besylate 10 mg 10/10/21 12:00 10/11/21 09:47 Amlodipine 10 Mg Tab PO 10 mg DAILY MELLISSA Administration Dextrose 0 ml 10/09/21 23:44 Dextrose 50% In Water (25gm) 50 Ml Syringe IV Q30MIN PRN Hypoglycemia Protocol Hydralazine HCl 10 mg 10/10/21 11:24 Hydralazine 20 Mg/1 Ml Inj IV Q30MIN PRN Hypertension Sodium Chloride 100 mls @ 999 mls/hr 10/10/21 10:42 Nacl 0.9% IV SMITA PRN Hypotension Ceftriaxone Sodium 2 gm in 100 mls @ 200 mls/hr 10/10/21 12:00 10/11/21 12:08 Rocephin/Ns 2 Gm/100 Ml IV 200 mls/hr Q24H MELLISSA Administration Doxycycline Hyclate 100 mg/ 250 mls @ 250 mls/hr 10/10/21 18:00 10/11/21 17:12 Sodium Chloride IV 250 mls/hr Q12H MELLISSA Administration Protocol Insulin Human Lispro 0 unit 10/10/21 07:30 10/11/21 16:30 Insulin Lispro 100 Unit/Ml SUB-Q 2 unit ACHS MELLISSA Administration Protocol Magnesium Hydroxide 30 ml 10/09/21 23:44 10/11/21 12:19 Magnesium Hydroxide (Mom) Oral Liqd Udc PO 30 ml Q4H PRN Administration Constipation Metronidazole 500 mg 10/10/21 22:00 10/11/21 14:52 Metronidazole 500 Mg Tab PO 500 mg Q8HR MELLISSA Administration Morphine Sulfate 2 mg 10/09/21 23:44 10/10/21 10:46 Morphine 2 Mg/1 Ml Inj IV 2 mg Q4H PRN Administration Pain, Moderate (4-6) Morphine Sulfate 4 mg 10/09/21 23:44 10/11/21 18:09 Morphine 4 Mg/1 Ml Inj IV 4 mg Q4H PRN Administration Pain , Severe (7-10) Ondansetron HCl 4 mg 10/09/21 23:44 Ondansetron 4 Mg/2 Ml Inj IV Q8H PRN Nausea And Vomiting Sodium Chloride 10 ml 10/10/21 10:00 10/11/21 12:09 Sodium Chloride 0.9% 10 Ml Flush Syringe IV 10 ml BID MELLISSA Administration Sodium Chloride 10 ml 10/09/21 23:44 Sodium Chloride 0.9% 10 Ml Flush Syringe IV PRN PRN LINE FLUSH
--- NOTE | 2021-10-11 19:01 | Progress Note ---
Assessment and Plan -- Intractable abdominal pain Likely due to pelvic abscess General surgery ruled out any intestinal obstruction Patient placed on IV antibiotics and analgesic medication for pain control. -- possible pelvic abscess Patient has been initiated on antibiotic Await evaluation and recommendations from SILK SCREENER -- End stage renal disease on dialysis Patient gets dialysis on Mondays, Wednesdays and Fridays. Has a perm-Cath in the right anterior chest wall Laborer [place] is Dr. Kiran -- Diabetes mellitus We will monitor Accu-Cheks closely. Patient on sliding scale insulin. -- Hypertension Will resume routine home medications and monitor vital signs closely. -- DVT prophylaxis Patient placed on sequential compression device. -- Full code status Daily clinical course: 10/10/21; discussed with general surgery, patient does not have any small bowel obstruction, most likely patient has pelvic abscess, initiated on empiric antibiotics, and consulted SILK SCREENER. Patient also will need CT abdomen pelvis with oral contrast -ordered. Will start on clear liquid diet for now. 10/11: noted obg/steam conditioner filling recommendation, pt need IR guided abscess drainage, cont iv abx for now Subjective Date of service: 10/11/21 Principal diagnosis: Abdominal pain Interval history: Patient seen and examined. Medical records and medication list reviewed. No acute event overnight noted by the RN. Patient denies any chest pain or difficulty breathing. Patient complains of lower abdominal pain Discussed plan of care at bedside with patient. Objective - Exam Narrative Exam: GENERAL: well-developed and well-nourished AAF lying on bed appeared to be in no discomfort. HEENT: Normocephalic. Atraumatic. No conjunctival congestion or icterus. Patient has moist mucous membranes. NECK: Supple. Trachea midline. CHEST/LUNGS: Clear to auscultated bilaterally, breathing nonlabored. No wheezes crackles or rhonchi. HEART/CARDIOVASCULAR: Regular in rate and rhythm. S1 and S2 positive. ABDOMEN: Abdomen is soft, slightly tender. Patient has normal bowel sounds. SKIN: There is no rash. Warm and dry. NEURO: No focal motor deficit. Follows command. MUSCULOSKELETAL: No joint effusion or tenderness. EXTRIMITY: No edema, no cyanosis or clubbing. PSYCH: Cooperative. - Constitutional Vitals: Vital Signs - 12hr 10/11/21 10/11/21 10/11/21 09:47 11:33 16:48 Temperature 98.2 F 98.2 F Pulse Rate 93 H 92 H 88 Respiratory 20 22 Rate Blood Pressure 150/82 137/69 144/82 O2 Sat by Pulse 95 96 Oximetry - Labs CBC & Chem 7: 10/10/21 05:11 10/11/21 05:35 Labs: Abnormal lab results 10/10/21 10/11/21 10/11/21 Range/Units 21:37 05:35 07:35 Sodium 134 L (137-145) mmol/L Chloride 94.6 L (98-107) mmol/L BUN 20 H (7-17) mg/dL Creatinine 6.1 H (0.6-1.2) mg/dL Glucose 118 H (65-100) mg/dL POC Glucose 202 H 110 H (70-105) mg/dL Calcium 8.1 L (8.4-10.2) mg/dL 10/11/21 Range/Units 16:46 Sodium (137-145) mmol/L Chloride (98-107) mmol/L BUN (7-17) mg/dL Creatinine (0.6-1.2) mg/dL Glucose (65-100) mg/dL POC Glucose 163 H (70-105) mg/dL Calcium (8.4-10.2) mg/dL
[2021-10-12] MEDS: MORPHINE 2 MG/1 ML INJ IV PRN (05:29)
[2021-10-12] MEDS: metroNIDAZOLE 500 MG TAB PO SCH ×3 (05:29→21:27)
[2021-10-12] MEDS: DOXYCYCLINE HYCLATE 100 MG in SODIUM CHLORIDE 0.9% 250ML 250 ML IV SCH ×2 (05:29→18:00)
[2021-10-12] MEDS: INSULIN LISPRO 100 UNIT/ML SUB-Q SCH ×4 (08:09→23:05)
--- NOTE | 2021-10-12 09:12 | Consultation ---
History of Present Illness - Reason for Consult Consult date: 10/12/21 Right tubo-ovarian abscess - History of Present Illness Patient with a history of abdominal pain in her right lower abdomen who on CT was noted to have a developing fluid collection consistent with a TOA. Patient is currently on antibiotics. She currently complains of mild discomfort worse when sitting for long periods of time in the right lower quadrant of her abdomen. Patient also with end-stage renal disease on hemodialysis currently through a right chest wall tunneled hemodialysis catheter. Past History Past Medical History: anemia, diabetes, dialysis, ESRD, GERD, hypertension, other (Uterine fibroids) Past Surgical History: Other (I&D for boil) Social history: no significant social history Family history: no significant family history Medications and Allergies Allergies Allergy/AdvReac Type Severity Reaction Status Date / Time heparin Allergy Swelling Verified 10/09/21 17:20 lisinopril AdvReac Unknown Verified 09/17/20 17:41 Home Medications Medication Instructions Recorded Confirmed Last Taken Type Albuterol Mdi (or & Nicu Only) 2 puff IH QID PRN #8.5 gram 10/11/21 Unknown Rx [ProAir HFA Inhaler] Azithromycin [Zithromax TAB] 500 mg PO QDAY #3 tablet 10/11/21 Unknown Rx amLODIPine 5 mg PO DAILY #30 tablet 10/11/21 Unknown Rx Active Meds: Active Medications Acetaminophen (Acetaminophen 325 Mg Tab) 650 mg PO Q4H PRN PRN Reason: Pain MILD(1-3)/Fever >100.5/ZHANG Amlodipine Besylate (Amlodipine 10 Mg Tab) 10 mg PO DAILY [facility] Last Admin: 10/11/21 09:47 Dose: 10 mg Documented by: Dextrose (Dextrose 50% In Water (25gm) 50 Ml Syringe) 0 ml IV Q30MIN PRN; Protocol PRN Reason: Hypoglycemia Hydralazine HCl (Hydralazine 20 Mg/1 Ml Inj) 10 mg IV Q30MIN PRN PRN Reason: Hypertension Sodium Chloride (Nacl 0.9%) 100 mls @ 999 mls/hr IV SMITA PRN PRN Reason: Hypotension Ceftriaxone Sodium (Rocephin/Ns 2 Gm/100 Ml) 2 gm in 100 mls @ 200 mls/hr IV Q24H [facility] Last Admin: 10/11/21 12:08 Dose: 200 mls/hr Documented by: Doxycycline Hyclate 100 mg/ (Sodium Chloride) 250 mls @ 250 mls/hr IV Q12H [facility]; Protocol Last Admin: 10/12/21 05:29 Dose: 250 mls/hr Documented by: Insulin Human Lispro (Insulin Lispro 100 Unit/Ml) 0 unit SUB-Q ACHS [facility]; Protocol Last Admin: 10/12/21 08:09 Dose: Not Given Documented by: Magnesium Hydroxide (Magnesium Hydroxide (Mom) Oral Liqd Udc) 30 ml PO Q4H PRN PRN Reason: Constipation Last Admin: 10/11/21 12:19 Dose: 30 ml Documented by: Metronidazole (Metronidazole 500 Mg Tab) 500 mg PO Q8HR MELLISSA Last Admin: 10/12/21 05:29 Dose: 500 mg Documented by: Morphine Sulfate (Morphine 2 Mg/1 Ml Inj) 2 mg IV Q4H PRN PRN Reason: Pain, Moderate (4-6) Last Admin: 10/12/21 05:29 Dose: 2 mg Documented by: Morphine Sulfate (Morphine 4 Mg/1 Ml Inj) 4 mg IV Q4H PRN PRN Reason: Pain , Severe (7-10) Last Admin: 10/11/21 21:52 Dose: 4 mg Documented by: Ondansetron HCl (Ondansetron 4 Mg/2 Ml Inj) 4 mg IV Q8H PRN PRN Reason: Nausea And Vomiting Sodium Chloride (Sodium Chloride 0.9% 10 Ml Flush Syringe) 10 ml IV BID [facility] Last Admin: 10/11/21 21:35 Dose: 10 ml Documented by: Sodium Chloride (Sodium Chloride 0.9% 10 Ml Flush Syringe) 10 ml IV PRN PRN PRN Reason: LINE FLUSH Review of Systems All systems: negative Exam - Constitutional Vitals: Temp Pulse Resp BP Pulse Ox 97.9 F 85 18 154/85 97 10/12/21 06:38 10/12/21 06:38 10/12/21 06:38 10/12/21 06:38 10/12/21 07:34 General appearance: Present: no acute distress - EENT Eyes: Present: EOM intact ENT: hearing intact - Neck Neck: Present: normal ROM - Respiratory Respiratory effort: normal - Extremities Extremities: Full ROM - Abdominal General gastrointestinal: Present: non-distended - Rectal Rectal Exam: deferred - Psychiatric Psychiatric: appropriate mood/affect, cooperative Results - Labs CBC & Chem 7: 10/10/21 05:11 10/11/21 05:35 Labs: Abnormal lab results 10/11/21 Range/Units 16:46 POC Glucose 163 H (70-105) mg/dL - Imaging and Cardiology CT scan - abdomen: report reviewed, image reviewed CT scan - pelvis: report reviewed, image reviewed Assessment and Plan Patient will be brought down to CT tomorrow for planned placement of a drainage catheter versus aspiration depending upon the ability to access her right TOA. N.p.o. after midnight for
[2021-10-12] MEDS: MORPHINE 4 MG/1 ML INJ IV PRN ×3 (09:56→19:49)
[2021-10-12] MEDS: amLODIPine 10 MG TAB PO SCH (09:56)
--- NOTE | 2021-10-12 11:28 | Progress Note ---
Assessment and Plan - Patient Problems (1) TOA (tubo-ovarian abscess) Current Visit: Yes Status: Acute Plan to address problem: Scheduled for CT guided drainage tomorrow No indication for surgical intervention at this time Plan of care explained, questions encouraged and answered. (2) Diabetes mellitus Current Visit: Yes Status: Acute (3) End stage renal disease on dialysis Current Visit: Yes Status: Acute (4) Hypertension Current Visit: Yes Status: Acute Subjective - Subjective Date of service: 10/12/21 Principal diagnosis: Abdominal pain/TOA Interval history: Patient is doing well. Tolerating solid diet and voiding without difficulty.No complaints. Patient reports: appetite normal, pain well controlled, flatus Objective - Vital Signs Latest vital signs: Vital Signs Temp Pulse Resp BP Pulse Ox 10/12/21 09:56 85 154/85 10/12/21 07:34 97 10/12/21 06:38 97.9 F 85 18 154/85 97 10/11/21 22:57 99.3 F 92 H 18 135/85 96 10/11/21 22:15 20 96 10/11/21 18:00 96 10/11/21 16:48 98.2 F 88 22 144/82 96 10/11/21 11:33 98.2 F 92 H 20 137/69 95 Intake and Output 10/11/21 10/12/21 10/12/21 22:59 06:59 14:59 Intake Total 1340 10 Balance 1340 10 Intake: IV 260 10 Doxycycline Hyclate 100 250 mg In NaCl 0.9% 250Ml 250 ml @ 250 mls/hr IV Q12H [facility] Rx#:[id number] Left Hand 10 Right Antecubital 10 Oral 1080 Other: Total, Intake Amount 120 Voiding Method Toilet Toilet - Labs Labs: Abnormal lab results 10/11/21 Range/Units 16:46 POC Glucose 163 H (70-105) mg/dL
[2021-10-12] MEDS: cefTRIAXone/NS 2 GM/100 ML 2 GM/100 ML BAG IV SCH (11:29)
--- NOTE | 2021-10-12 14:12 | Progress Note ---
Assessment and Plan -- Intractable abdominal pain Likely due to pelvic abscess General surgery ruled out any intestinal obstruction Patient placed on IV antibiotics and analgesic medication for pain control. -- possible pelvic abscess Patient has been initiated on antibiotic Await evaluation and recommendations from [employer] -- End stage renal disease on dialysis Patient gets dialysis on Mondays, Wednesdays and Fridays. Has a perm-Cath in the right anterior chest wall Senior Professional Services Consultant is Dr. Kiran -- Diabetes mellitus We will monitor Accu-Cheks closely. Patient on sliding scale insulin. -- Hypertension Will resume routine home medications and monitor vital signs closely. -- DVT prophylaxis Patient placed on sequential compression device. -- Full code status Daily clinical course: 10/10/21; discussed with general surgery, patient does not have any small bowel obstruction, most likely patient has pelvic abscess, initiated on empiric antibiotics, and consulted [employer]. Patient also will need CT abdomen pelvis with oral contrast -ordered. Will start on clear liquid diet for now. 10/11: noted obg/[facility] technical lead senior developer recommendation, pt need IR guided abscess drainage, cont iv abx for now 10/12: cont iv abx, pending IR guided pelvic abscess drainage. Subjective Date of service: 10/12/21 Principal diagnosis: Abdominal pain/TOA Interval history: Patient seen and examined. Medical records and medication list reviewed. No acute event overnight noted by the RN. Patient denies any chest pain or difficulty breathing. Patient complains of lower abdominal pain Discussed plan of care at bedside with patient. Objective - Exam Narrative Exam: GENERAL: well-developed and well-nourished AAF lying on bed appeared to be in no discomfort. HEENT: Normocephalic. Atraumatic. No conjunctival congestion or icterus. Patient has moist mucous membranes. NECK: Supple. Trachea midline. CHEST/LUNGS: Clear to auscultated bilaterally, breathing nonlabored. No wheezes crackles or rhonchi. HEART/CARDIOVASCULAR: Regular in rate and rhythm. S1 and S2 positive. ABDOMEN: Abdomen is soft, slightly tender. Patient has normal bowel sounds. SKIN: There is no rash. Warm and dry. NEURO: No focal motor deficit. Follows command. MUSCULOSKELETAL: No joint effusion or tenderness. EXTRIMITY: No edema, no cyanosis or clubbing. PSYCH: Cooperative. - Constitutional Vitals: Vital Signs - 12hr 10/12/21 10/12/2121 06:38 07:34 09:56 Temperature 97.9 F Pulse Rate 85 85 Respiratory 18 Rate Blood Pressure 154/85 154/85 O2 Sat by Pulse 97 97 Oximetry - Labs CBC & Chem 7: 10/10/21 05:11 10/11/21 05:35 Labs: Abnormal lab results 10/11/21 10/12/21 Range/Units 16:46 12:17 POC Glucose 163 H 108 H (70-105) mg/dL
[2021-10-12] MEDS: MAGNESIUM HYDROXIDE (MOM) ORAL LIQD UDC PO PRN (15:36)
--- NOTE | 2021-10-12 20:34 | Progress Note ---
Assessment and Plan Assessment - End-stage renal disease on hemodialysis - Hypertension - Anemia of ESRD - Hyperparathyroidism - Hyperphosphatemia - Abdominal pain - TOA Recommendations - Continue HD MWF - Monitor labs and volume status daily and assess need for additional dialysis session - Continue home antihypertensives - Hold antihypertensives on hemodialysis days for systolics less than 160 - Epogen with HD - Continue phosphorus binders - ESRD diet with 1.4 g/kg per day protein - Renally dose medication for creatinine clearance less than 15 cc/min - Surgery, UPPER DOUBLER, IR and primary note reviewed, plans for drainage noted Subjective Date of service: 10/12/21 Principal diagnosis: Abdominal pain/TOA Interval history: Continues to experience abdominal discomfort. Objective - Exam Narrative Exam: General: No acute distress HEENT: Oral mucosa moist Neck: Supple, no JVD Chest: Clear to auscultation bilaterally Heart: RRR, S1 and S2, no pericardial rub Abdomen: Soft, tender Extremity: No peripheral cyanosis, edema Neurological: Alert, awake, no asterixis Dermatology: No skin rash Psych: No agitation Musculoskeletal: No joint effusion - Vital Signs Vital signs: Vital Signs - 12hr 10/12/21 10/12/21 10/12/21 09:56 12:16 16:48 Temperature 98.3 F 98.4 F Pulse Rate 85 82 89 Respiratory 22 20 Rate Blood Pressure 154/85 149/83 124/79 O2 Sat by Pulse 93 95 Oximetry - Lab 10/10/21 05:11 10/11/21 05:35 Most recent lab results Calcium 8.1 mg/dL (8.4-10.2) L 10/11/21 05:35 Medications & Allergies - Medications Allergies/Adverse Reactions: Allergies heparin Allergy (Verified 10/09/21 17:20) Swelling lisinopril Adverse Reaction (Verified 09/17/20 17:41) Unknown Home Medications: Home Medications Medication Instructions Recorded Confirmed Last Taken Type Albuterol Mdi (or & Nicu Only) 2 puff IH QID PRN #8.5 gram 10/11/21 Unknown Rx [ProAir HFA Inhaler] Azithromycin [Zithromax TAB] 500 mg PO QDAY #3 tablet 10/11/21 Unknown Rx amLODIPine 5 mg PO DAILY #30 tablet 10/11/21 Unknown Rx Active Medications: Generic Name Dose Route Start Last Admin Trade Name Freq PRN Reason Stop Dose Admin Acetaminophen 650 mg 10/09/21 23:44 Acetaminophen 325 Mg Tab PO Q4H PRN Pain MILD(1-3)/Fever >100.5/ZHANG Amlodipine Besylate 10 mg 10/10/21 12:00 10/12/21 09:56 Amlodipine 10 Mg Tab PO 10 mg DAILY MELLISSA Administration Dextrose 0 ml 10/09/21 23:44 Dextrose 50% In Water (25gm) 50 Ml Syringe IV Q30MIN PRN Hypoglycemia Protocol Hydralazine HCl 10 mg 10/10/21 11:24 Hydralazine 20 Mg/1 Ml Inj IV Q30MIN PRN Hypertension Sodium Chloride 100 mls @ 999 mls/hr 10/10/21 10:42 Nacl 0.9% IV SMITA PRN Hypotension Ceftriaxone Sodium 2 gm in 100 mls @ 200 mls/hr 10/10/21 12:00 10/12/21 11:29 Rocephin/Ns 2 Gm/100 Ml IV 200 mls/hr Q24H ME[facility]IS[facility] Administration Doxycycline Hyclate 100 mg/ 250 mls @ 250 mls/hr 10/10/21 18:00 10/12/21 18:00 Sodium Chloride IV 250 mls/hr Q12H MELLISSA Administration Protocol Insulin Human Lispro 0 unit 10/10/21 07:30 10/12/21 16:30 Insulin Lispro 100 Unit/Ml SUB-Q Not Given ACHS [facility] Protocol Magnesium Hydroxide 30 ml 10/09/21 23:44 10/12/21 15:36 Magnesium Hydroxide (Mom) Oral Liqd Udc PO 30 ml Q4H PRN Administration Constipation Metronidazole 500 mg 10/10/21 22:00 10/12/21 15:36 Metronidazole 500 Mg Tab PO 500 mg Q8HR MELLISSA Administration Morphine Sulfate 2 mg 10/09/21 23:44 10/12/21 05:29 Morphine 2 Mg/1 Ml Inj IV 2 mg Q4H PRN Administration Pain, Moderate (4-6) Morphine Sulfate 4 mg 10/09/21 23:44 10/12/21 19:49 Morphine 4 Mg/1 Ml Inj IV 4 mg Q4H PRN Administration Pain , Severe (7-10) Ondansetron HCl 4 mg 10/09/21 23:44 Ondansetron 4 Mg/2 Ml Inj IV Q8H PRN Nausea And Vomiting Sodium Chloride 10 ml 10/10/21 10:00 10/12/21 10:04 Sodium Chloride 0.9% 10 Ml Flush Syringe IV 10 ml BID MELLISSA Administration Sodium Chloride 10 ml 10/09/21 23:44 Sodium Chloride 0.9% 10 Ml Flush Syringe IV PRN PRN LINE FLUSH
[2021-10-13] MEDS: DOXYCYCLINE HYCLATE 100 MG in SODIUM CHLORIDE 0.9% 250ML 250 ML IV SCH ×2 (04:55→05:46)
[2021-10-13] MEDS: metroNIDAZOLE 500 MG TAB PO SCH ×3 (05:00→22:53)
[2021-10-13] MEDS: INSULIN LISPRO 100 UNIT/ML SUB-Q SCH ×4 (08:04→22:54)
[2021-10-13] MEDS ORDERED: MIDAZOLAM 5 MG/5 ML INJ MDV IV ONE (09:10)
[2021-10-13] MEDS: amLODIPine 10 MG TAB PO SCH (09:33)
--- NOTE | 2021-10-13 09:41 | Progress Note ---
Subjective Date of service: 10/13/21 Principal diagnosis: Abdominal pain/TOA Interval history: Assessment - End-stage renal disease on hemodialysis - Hypertension - Anemia of ESRD - Hyperparathyroidism - Hyperphosphatemia - Abdominal pain - TOA Recommendations - Continue HD MWF - Monitor labs and volume status daily and assess need for additional dialysis session - Continue home antihypertensives - Hold antihypertensives on hemodialysis days for systolics less than 160 - Epogen with HD - Continue phosphorus binders - ESRD diet with 1.4 g/kg per day protein - Renally dose medication for creatinine clearance less than 15 cc/min - Surgery, ELECTRICAL TROUBLESHOOTER, IR and primary note reviewed, plans for drainage noted Subjective Principal diagnosis: Abdominal pain/TOA Interval history: Continues to experience abdominal discomfort. Objective - Exam Narrative Exam: General: No acute distress HEENT: Oral mucosa moist Neck: Supple, no JVD Chest: Clear to auscultation bilaterally Heart: RRR, S1 and S2, no pericardial rub Abdomen: Soft, tender Extremity: No peripheral cyanosis, edema Neurological: Alert, awake, no asterixis Dermatology: No skin rash Psych: No agitation Musculoskeletal: No joint effusion Objective - Vital Signs Vital signs: Vital Signs - 12hr 10/12/21 10/13/21 10/13/21 22:09 04:44 08:14 Temperature 97.9 F 98.0 F Pulse Rate 89 82 Respiratory 20 20 Rate Blood Pressure 152/83 157/92 O2 Sat by Pulse 91 95 97 Oximetry 10/13/21 09:33 Temperature Pulse Rate Respiratory Rate Blood Pressure 160/94 O2 Sat by Pulse Oximetry - Lab 10/10/21 05:11 10/11/21 05:35 Most recent lab results Calcium 8.1 mg/dL (8.4-10.2) L 10/11/21 05:35 Medications & Allergies - Medications Allergies/Adverse Reactions: Allergies heparin Allergy (Verified 10/09/21 17:20) Swelling lisinopril Adverse Reaction (Verified 09/17/20 17:41) Unknown Home Medications: Home Medications Medication Instructions Recorded Confirmed Last Taken Type Albuterol Mdi (or & Nicu Only) 2 puff IH QID PRN #8.5 gram 10/11/21 Unknown Rx [ProAir HFA Inhaler] Azithromycin [Zithromax TAB] 500 mg PO QDAY #3 tablet 10/11/21 Unknown Rx amLODIPine 5 mg PO DAILY #30 tablet 10/11/21 Unknown Rx Active Medications: Generic Name Dose Route Start Last Admin Trade Name Freq PRN Reason Stop Dose Admin Acetaminophen 650 mg 10/09/21 23:44 Acetaminophen 325 Mg Tab PO Q4H PRN Pain MILD(1-3)/Fever >100.5/ZHANG Amlodipine Besylate 10 mg 10/10/21 12:00 10/13/21 09:33 Amlodipine 10 Mg Tab PO 10 mg DAILY ME[facility]ISSA Administration Dextrose 0 ml 10/09/21 23:44 Dextrose 50% In Water (25gm) 50 Ml Syringe IV Q30MIN PRN Hypoglycemia Protocol Fentanyl 100 mcg 10/13/21 10:00 Fentanyl 100 Mcg/2 Ml Inj IV 10/13/21 17:00 ONCE MELLISSA Hydralazine HCl 10 mg 10/10/21 11:24 Hydralazine 20 Mg/1 Ml Inj IV Q30MIN PRN Hypertension Sodium Chloride 100 mls @ 999 mls/hr 10/10/21 10:42 Nacl 0.9% IV SMITA PRN Hypotension Ceftriaxone Sodium 2 gm in 100 mls @ 200 mls/hr 10/10/21 12:00 10/12/21 11:29 Rocephin/Ns 2 Gm/100 Ml IV 200 mls/hr Q24H [facility] Administration Doxycycline Hyclate 100 mg/ 250 mls @ 250 mls/hr 10/10/21 18:00 10/13/21 05:46 Sodium Chloride IV Not Given Q12H [facility] Protocol Insulin Human Lispro 0 unit 10/10/21 07:30 10/13/21 08:04 Insulin Lispro 100 Unit/Ml SUB-Q Not Given ACHS [facility] Protocol Magnesium Hydroxide 30 ml 10/09/21 23:44 10/12/21 15:36 Magnesium Hydroxide (Mom) Oral Liqd Udc PO 30 ml Q4H PRN Administration Constipation Metronidazole 500 mg 10/10/21 22:00 10/13/21 05:00 Metronidazole 500 Mg Tab PO Not Given Q8HR [facility] Midazolam HCl 5 mg 10/13/21 10:00 Midazolam 5 Mg/5 Ml Inj Mdv IV 10/13/21 18:00 ONCE [facility] Morphine Sulfate 2 mg 10/09/21 23:44 10/12/21 05:29 Morphine 2 Mg/1 Ml Inj IV 2 mg Q4H PRN Administration Pain, Moderate (4-6) Morphine Sulfate 4 mg 10/09/21 23:44 10/12/21 19:49 Morphine 4 Mg/1 Ml Inj IV 4 mg Q4H PRN Administration Pain , Severe (7-10) Ondansetron HCl 4 mg 10/09/21 23:44 Ondansetron 4 Mg/2 Ml Inj IV Q8H PRN Nausea And Vomiting Sodium Chloride 10 ml 10/10/21 10:00 10/13/21 09:34 Sodium Chloride 0.9% 10 Ml Flush Syringe IV 10 ml BID MELLISSA Administration Sodium Chloride 10 ml 10/09/21 23:44 Sodium Chloride 0.9% 10 Ml Flush Syringe IV PRN PRN LINE FLUSH
[2021-10-13] MEDS ORDERED: fentaNYL 100 MCG/2 ML INJ IV SCH (10:00)
[2021-10-13] MEDS ORDERED: MIDAZOLAM 5 MG/5 ML INJ MDV IV SCH (10:00)
[2021-10-13] MEDS ORDERED: fentaNYL 100 MCG/2 ML INJ IV ONE (10:00)
[2021-10-13] MEDS ORDERED: SODIUM CHLORIDE 0.9% 500 ML 0 ML ONE (10:33)
--- NOTE | 2021-10-13 11:15 | Consultation ---
History of Present Illness - Reason for Consult Consult date: 10/13/21 TOA Requesting physician: BLAYNE ABRAHAM - History of Present Illness The patient is a 46-year-old female admitted to the hospital with right lower abdominal pain, noted to have a tubo-ovarian abscess on CT scan. IR, COMPUTER NUMERICAL CONTROL GRINDER has evaluated patient. She is awaiting IR drainage. ID was consulted for antibiotic recommendations. Patient also has ESRD and is on dialysis. Review of Systems: As per HPI Past History Past Medical History: anemia, diabetes, dialysis, ESRD, GERD, hypertension, other (Uterine fibroids) Past Surgical History: Other (I&D for boil) Social history: no significant social history Family history: no significant family history Medications and Allergies Allergies Allergy/AdvReac Type Severity Reaction Status Date / Time heparin Allergy Swelling Verified 10/09/21 17:20 lisinopril AdvReac Unknown Verified 09/17/20 17:41 Home Medications Medication Instructions Recorded Confirmed Last Taken Type Albuterol Mdi (or & Nicu Only) 2 puff IH QID PRN #8.5 gram 10/11/21 Unknown Rx [ProAir HFA Inhaler] Azithromycin [Zithromax TAB] 500 mg PO QDAY #3 tablet 10/11/21 Unknown Rx RX: amLODIPine 5 mg PO DAILY #30 tablet 10/11/21 Unknown Rx Active Meds: Active Medications Acetaminophen (Acetaminophen 325 Mg Tab) 650 mg PO Q4H PRN PRN Reason: Pain MILD(1-3)/Fever >100.5/ZHANG Amlodipine Besylate (Amlodipine 10 Mg Tab) 10 mg PO DAILY [facility] Last Admin: 10/13/21 09:33 Dose: 10 mg Documented by: Dextrose (Dextrose 50% In Water (25gm) 50 Ml Syringe) 0 ml IV Q30MIN PRN; Protocol PRN Reason: Hypoglycemia Fentanyl (Fentanyl 100 Mcg/2 Ml Inj) 100 mcg IV ONCE MELLISSA Stop: 10/13/21 17:00 Hydralazine HCl (Hydralazine 20 Mg/1 Ml Inj) 10 mg IV Q30MIN PRN PRN Reason: Hypertension Sodium Chloride (Nacl 0.9%) 100 mls @ 999 mls/hr IV SMITA PRN PRN Reason: Hypotension Ceftriaxone Sodium (Rocephin/Ns 2 Gm/100 Ml) 2 gm in 100 mls @ 200 mls/hr IV Q24H [facility] Last Admin: 10/12/21 11:29 Dose: 200 mls/hr Documented by: Doxycycline Hyclate 100 mg/ (Sodium Chloride) 250 mls @ 250 mls/hr IV Q12H [facility]; Protocol Last Admin: 10/13/21 05:46 Dose: Not Given Documented by: Insulin Human Lispro (Insulin Lispro 100 Unit/Ml) 0 unit SUB-Q ACHS [facility]; Protocol Last Admin: 10/13/21 08:04 Dose: Not Given Documented by: Magnesium Hydroxide (Magnesium Hydroxide (Mom) Oral Liqd Udc) 30 ml PO Q4H PRN PRN Reason: Constipation Last Admin: 10/12/21 15:36 Dose: 30 ml Documented by: Metronidazole (Metronidazole 500 Mg Tab) 500 mg PO Q8HR [facility] Last Admin: 10/13/21 05:00 Dose: Not Given Documented by: Midazolam HCl (Midazolam 5 Mg/5 Ml Inj Mdv) 5 mg IV ONCE [facility] Stop: 10/13/21 18:00 Morphine Sulfate (Morphine 2 Mg/1 Ml Inj) 2 mg IV Q4H PRN PRN Reason: Pain, Moderate (4-6) Last Admin: 10/12/21 05:29 Dose: 2 mg Documented by: Morphine Sulfate (Morphine 4 Mg/1 Ml Inj) 4 mg IV Q4H PRN PRN Reason: Pain , Severe (7-10) Last Admin: 10/12/21 19:49 Dose: 4 mg Documented by: Ondansetron HCl (Ondansetron 4 Mg/2 Ml Inj) 4 mg IV Q8H PRN PRN Reason: Nausea And Vomiting Sodium Chloride (Sodium Chloride 0.9% 10 Ml Flush Syringe) 10 ml IV BID [facility] Last Admin: 10/13/21 09:34 Dose: 10 ml Documented by: Sodium Chloride (Sodium Chloride 0.9% 10 Ml Flush Syringe) 10 ml IV PRN PRN PRN Reason: LINE FLUSH Physical Examination - Physical Exam Narrative exam: Physical Exam: Exam deffered, patient not in room - Constitutional Vitals: Vital Signs Temp Pulse Resp BP Pulse Ox 98.0 F 82 20 160/94 97 10/13/21 04:44 10/13/21 04:44 10/13/21 04:44 10/13/21 09:33 10/13/21 08:14 Temperature -Last 24 Hours Temperature 98.0 F Temperature 97.9 F Temperature 98.4 F Temperature 98.3 F Results - Labs CBC & Chem 7: 10/10/21 05:11 10/11/21 05:35 Labs: Abnormal lab results 10/12/21 10/12/21 Range/Units 12:17 22:07 POC Glucose 108 H 107 H (70-105) mg/dL Assessment and Plan Cultures: 10/09/2021 urine culture: No growth Hepatitis panel: Negative A/P: 46-year-old female with ESRD admitted with: #Sepsis secondary to tubo-ovarian abscess #ESRD on HD: Renally adjust antibiotics Recs: -Empiric Ceftriaxone, Flagyl, doxycycline -Follow-up IR drainage and cultures Bita May MD, FACP [facility] O: [phone] F: [phone]
--- NOTE | 2021-10-13 11:43 | Cat Scan Report ---
CT ABDOMEN AND PELVIS WITH CONTRAST HISTORY: RT TOA OMNI 300 100ML . Right tubo-ovarian abscess, pelvic and abdominal pain. COMPARISON: Previous CTs dated 10/09/2021 and 10/10/2021. Previous ultrasound dated 01/03/2020. TECHNIQUE: Helical CT images of the abdomen and pelvis were obtained following administration of intr avenous contrast. Sagittal and coronal reformatted images were reviewed. All CT scans at this [facility] are performed using CT dose reduction for ALARA by means of automated exposure control. CONTRAST: Omnipaque 300 100 ml of intravenous contrast administered. FINDINGS: Abdomen/pelvis: Large complex peripherally enhancing fluid collection in the right adnexa is again s een measuring up to 11 x 8 cm in axial plane. This remains consistent with a right tubo-ovarian absce ss with extension into the cul-de-sac. This multiloculated abscess demonstrates peripheral enhancemen t but no internal gas. This does not appear to represent dilated bowel loops. Oral contrast has advanced into the colon. The appendix is normal. There is no evidence for bowel obs truction or focal inflammation. The liver, biliary system, pancreas, spleen, kidneys, vascular structures, uterus and left adnexa are unremarkable. Normal bladder. Lungs/bones: The visualized lung bases are clear. The bony structures are unremarkable. IMPRESSION: Findings remain highly consistent with a right tubo-ovarian abscess as described. No significant gulilen ge is demonstrated since previous exams. These findings were discussed with Dr. Enriquez of [facility]ology. Signer Name: Agustin Sahni Jr, MD Signed: 10/13/2021 11:38 AM Workstation Name: [id number]
--- NOTE | 2021-10-13 13:48 | Progress Note ---
Assessment and Plan -- Intractable abdominal pain Likely due to pelvic abscess General surgery ruled out any intestinal obstruction Patient placed on IV antibiotics and analgesic medication for pain control. -- possible pelvic abscess Patient has been initiated on antibiotic consulted [facility] - recommended IR guided drainage of abscess -- End stage renal disease on dialysis Patient gets dialysis on Mondays, Wednesdays and Fridays. Has a perm-Cath in the right anterior chest wall Hair Or Beauty Salon Assistant consulted -- Diabetes mellitus We will monitor Accu-Cheks closely. Patient on sliding scale insulin. -- Hypertension Will resume routine home medications and monitor vital signs closely. -- DVT prophylaxis Patient placed on sequential compression device. -- Full code status Daily clinical course: 10/10/21; discussed with general surgery, patient does not have any small bowel obstruction, most likely patient has pelvic abscess, initiated on empiric antibiotics, and consulted [facility]. Patient also will need CT abdomen pelvis with oral contrast -ordered. Will start on clear liquid diet for now. 10/11: noted obg/manager floral recommendation, pt need IR guided abscess drainage, cont iv abx for now 10/12: cont iv abx, pending IR guided pelvic abscess drainage. 10/13: s/p CT guided pelvic drainage by IR but unable to place a drain, ID following, cont iv abx, follow pelvic fluid cx Subjective Date of service: 10/13/21 Principal diagnosis: Abdominal pain/TOA Interval history: Patient seen and examined. Medical records and medication list reviewed. No acute event overnight noted by the RN. Patient denies any chest pain or difficulty breathing. Patient complains of lower abdominal pain Discussed plan of care at bedside with patient. Objective - Exam Narrative Exam: GENERAL: well-developed and well-nourished AAF lying on bed appeared to be in no discomfort. HEENT: Normocephalic. Atraumatic. No conjunctival congestion or icterus. Patient has moist mucous membranes. NECK: Supple. Trachea midline. CHEST/LUNGS: Clear to auscultated bilaterally, breathing nonlabored. No wheezes crackles or rhonchi. HEART/CARDIOVASCULAR: Regular in rate and rhythm. S1 and S2 positive. ABDOMEN: Abdomen is soft, slightly tender. Patient has normal bowel sounds. SKIN: There is no rash. Warm and dry. NEURO: No focal motor deficit. Follows command. MUSCULOSKELETAL: No joint effusion or tenderness. EXTRIMITY: No edema, no cyanosis or clubbing. PSYCH: Cooperative. - Constitutional Vitals: Vital Signs - 12hr 10/13/21 10/13/21 10/13/21 04:44 08:14 09:33 Temperature 98.0 F Pulse Rate 82 Respiratory 20 Rate Blood Pressure 157/92 160/94 O2 Sat by Pulse 95 97 Oximetry 10/13/21 12:58 Temperature Pulse Rate Respiratory 22 Rate Blood Pressure O2 Sat by Pulse Oximetry - Labs CBC & Chem 7: 10/10/21 05:11 10/11/21 05:35 Labs: Abnormal lab results 10/12/21 Range/Units 22:07 POC Glucose 107 H (70-105) mg/dL
--- NOTE | 2021-10-13 14:22 | Operative Report ---
Operative Report Operative Report: EXAM: CT-guided aspiration of the pelvic fluid collection DATE: 10/13/2021 TRUCK TERMINAL MANAGER: KATT MARTIN MD INDICATION: Right lower quadrant tubo-ovarian fluid collection with pain and discomfort MEDICATIONS: Please see nursing report for full details. DEVICES: 18-gauge needle CONTRAST: None PROCEDURE: The risks, benefits, and alternatives were discussed with the patient; written informed consent was obtained. Before the procedure, a new CT scan with nonionic contrast was administered which demonstrated a right lower quadrant tubo-ovarian complex which extended into the pelvis. Patient was placed in the prone position and ballaster imaging was obtained. The left paragluteal region was prepped and draped in sterile fashion. Lidocaine was administered in the left para gluteal region and finder needle was used and 25-gauge spinal needle was used to anesthetize the tract. Intermittent imaging was obtained as an 18-gauge trocar needle was passed into the tubo- ovarian complex which extended into the pelvis from a left transgluteal approach into the pelvic portion of the fluid collection which was most amenable to drainage. The left pelvic portion of the predominantly right lower quadrant fluid collection was accessed with an 18-gauge needle. Yellow serous thick material was aspirated. 0.035 inch wire was passed through the needle, and imaging was obtained demonstrating that the wire was tightly coiled and not coiled within the collection. I attempted to reposition the 0.035 inch wire 3 times but each time the wire would not coil throughout the collection. At this point, I determined that I could not pass a drain over the wire and instead I decided to use 18-gauge needle to aspirate fluid. Approximately 10 mL of serous yellow fluid with thick mucus was aspirated. This was ultimately sent to the laboratory for cytology, cell count, and surgical culture. Ultimately all needles were removed and no bleeding was noted. Patient tolerated the procedure well. No immediate postprocedural complications. FINDINGS: Please see procedure note above IMPRESSION: Successful CT-guided aspiration of the fluid collection
[2021-10-13 17:20] LABS: Monocytes Body Fluid 17.6 %; Total Cells Counted 17 /mm3
[2021-10-13] MEDS: MORPHINE 2 MG/1 ML INJ IV PRN (18:38)
--- NOTE | 2021-10-13 20:50 | Consultation ---
History of Present Illness - Reason for Consult Consult date: 10/13/21 - History of Present Illness Patient status post drainage of abscess by interventional radiology. Patient says she still feels some pelvic pressure but is less than before the procedure. Recommend repeat CT T scan in 2 to 3 days. Past History Past Medical History: anemia, diabetes, dialysis, ESRD, GERD, hypertension, other (Uterine fibroids) Past Surgical History: Other (I&D for boil) Social history: no significant social history Family history: no significant family history Medications and Allergies Allergies Allergy/AdvReac Type Severity Reaction Status Date / Time heparin Allergy Swelling Verified 10/09/21 17:20 lisinopril AdvReac Unknown Verified 09/17/20 17:41 Home Medications Medication Instructions Recorded Confirmed Last Taken Type Albuterol Mdi (or & Nicu Only) 2 puff IH QID PRN #8.5 gram 10/11/21 Unknown Rx [ProAir HFA Inhaler] Azithromycin [Zithromax TAB] 500 mg PO QDAY #3 tablet 10/11/21 Unknown Rx amLODIPine 5 mg PO DAILY #30 tablet 10/11/21 Unknown Rx Active Meds: Active Medications Acetaminophen (Acetaminophen 325 Mg Tab) 650 mg PO Q4H PRN PRN Reason: Pain MILD(1-3)/Fever >100.5/ZHANG Amlodipine Besylate (Amlodipine 10 Mg Tab) 10 mg PO DAILY MELLISSA Last Admin: 10/13/21 09:33 Dose: 10 mg Documented by: Dextrose (Dextrose 50% In Water (25gm) 50 Ml Syringe) 0 ml IV Q30MIN PRN; Protocol PRN Reason: Hypoglycemia Hydralazine HCl (Hydralazine 20 Mg/1 Ml Inj) 10 mg IV Q30MIN PRN PRN Reason: Hypertension Sodium Chloride (Nacl 0.9%) 100 mls @ 999 mls/hr IV SMITA PRN PRN Reason: Hypotension Ceftriaxone Sodium (Rocephin/Ns 2 Gm/100 Ml) 2 gm in 100 mls @ 200 mls/hr IV Q24H MELLISSA Last Admin: 10/12/21 11:29 Dose: 200 mls/hr Documented by: Doxycycline Hyclate 100 mg/ (Sodium Chloride) 250 mls @ 250 mls/hr IV Q12H MELLISSA; Protocol Last Admin: 10/13/21 05:46 Dose: Not Given Documented by: Insulin Human Lispro (Insulin Lispro 100 Unit/Ml) 0 unit SUB-Q [facility]; Protocol Last Admin: 10/13/21 17:41 Dose: Not Given Documented by: Magnesium Hydroxide (Magnesium Hydroxide (Mom) Oral Liqd Udc) 30 ml PO Q4H PRN PRN Reason: Constipation Last Admin: 10/12/21 15:36 Dose: 30 ml Documented by: Metronidazole (Metronidazole 500 Mg Tab) 500 mg PO Q8HR MELLISSA Last Admin: 10/13/21 14:41 Dose: Not Given Documented by: Morphine Sulfate (Morphine 2 Mg/1 Ml Inj) 2 mg IV Q4H PRN PRN Reason: Pain, Moderate (4-6) Last Admin: 10/13/21 18:38 Dose: 2 mg Documented by: Morphine Sulfate (Morphine 4 Mg/1 Ml Inj) 4 mg IV Q4H PRN PRN Reason: Pain , Severe (7-10) Last Admin: 10/12/21 19:49 Dose: 4 mg Documented by: Ondansetron HCl (Ondansetron 4 Mg/2 Ml Inj) 4 mg IV Q8H PRN PRN Reason: Nausea And Vomiting Sodium Chloride (Sodium Chloride 0.9% 10 Ml Flush Syringe) 10 ml IV BID MELLISSA Last Admin: 10/13/21 09:34 Dose: 10 ml Documented by: Sodium Chloride (Sodium Chloride 0.9% 10 Ml Flush Syringe) 10 ml IV PRN PRN PRN Reason: LINE FLUSH Exam - Constitutional Vitals: Temp Pulse Resp BP Pulse Ox 97.7 F 93 H 18 150/90 100 10/13/21 16:00 10/13/21 17:26 10/13/21 16:00 10/13/21 17:26 10/13/21 16:00 - Abdominal General gastrointestinal: Present: soft, tender (Slightly suprapubically no shivani ound) - Rectal Rectal Exam: deferred - Integumentary Integumentary: Present: clear, warm, dry Results - Labs CBC & Chem 7: 10/10/21 05:11 10/11/21 05:35 Labs: Abnormal lab results 10/12/21 10/13/21 Range/Units 22:07 17:50 POC Glucose 107 H 124 H (70-105) mg/dL Assessment and Plan - Patient Problems (1) TOA (tubo-ovarian abscess) Current Visit: Yes Status: Acute Plan to address problem: Dr. Enriquez's operative note reviewed. Did withdraw yellow mucus fluid consistent with abscess. He was unable to place drain. Patient continues to be afebrile. We will continue IV antibiotics reassess
[2021-10-13] MEDS: cefTRIAXone/NS 2 GM/100 ML 2 GM/100 ML BAG IV SCH (22:54)
[2021-10-13] MEDS ORDERED: HYDROmorphone 1 MG/1 ML INJ IV ONE (23:51)
[2021-10-14] MEDS: metroNIDAZOLE 500 MG TAB PO SCH ×3 (06:30→21:32)
[2021-10-14] MEDS: MORPHINE 2 MG/1 ML INJ IV PRN ×2 (06:33→10:51)
[2021-10-14 06:36] LABS: Basophils # (Auto) 0.1 K/mm3 (0.0-0.1); Basophils % (Auto) 0.8 % (0.0-1.8); Eosinophils # (Auto) 0.4 K/mm3 (0.0-0.4); Eosinophils % (Auto) 4.9 % (0.0-4.3); Hematocrit 29.4 % (30.3-42.9); Hemoglobin 8.9 gm/dl (10.1-14.3); Lymphocytes # (Auto) 1.5 K/mm3 (1.2-5.4); Lymphocytes % (Auto) 18.9 % (13.4-35.0); Mean Corpuscular HGB Conc 30 % (30-34); Mean Corpuscular Volume 86 fl (79-97); Monocytes # (Auto) 0.3 K/mm3 (0.0-0.8); Monocytes % (Auto) 4.2 % (0.0-7.3); Platelet Count 621 K/mm3 (140-440); Red Cell Distribution Width 17.6 % (13.2-15.2)
[2021-10-14 06:56] LABS: Calcium 8.1 mg/dL (8.4-10.2)
[2021-10-14] MEDS: DOXYCYCLINE HYCLATE 100 MG in SODIUM CHLORIDE 0.9% 250ML 250 ML IV SCH ×2 (08:29→09:07)
[2021-10-14] MEDS: INSULIN LISPRO 100 UNIT/ML SUB-Q SCH ×4 (08:29→21:36)
--- NOTE | 2021-10-14 09:04 | Progress Note ---
Subjective Date of service: 10/14/21 Principal diagnosis: Abdominal pain/TOA Interval history: Assessment - End-stage renal disease on hemodialysis - Hypertension - Anemia of ESRD - Hyperparathyroidism - Hyperphosphatemia - Abdominal pain - TOA Recommendations - Continue HD MWF - Monitor labs and volume status daily and assess need for additional dialysis session - Continue home antihypertensives - Hold antihypertensives on hemodialysis days for systolics less than 160 - Epogen with HD - Continue phosphorus binders - ESRD diet with 1.4 g/kg per day protein - Renally dose medication for creatinine clearance less than 15 cc/min - Surgery, RESEARCH PROGRAM MANAGER, IR and primary note reviewed,s/p drainage Subjective Principal diagnosis: Abdominal pain/TOA Interval history: Continues to experience abdominal discomfort. Objective - Exam Narrative Exam: General: No acute distress HEENT: Oral mucosa moist Neck: Supple, no JVD Chest: Clear to auscultation bilaterally Heart: RRR, S1 and S2, no pericardial rub Abdomen: Soft, tender Extremity: No peripheral cyanosis, edema Neurological: Alert, awake, no asterixis Dermatology: No skin rash Psych: No agitation Musculoskeletal: No joint effusion Objective - Vital Signs Vital signs: Vital Signs - 12hr 10/13/21 10/14/21 22:04 04:47 Temperature 98.2 F 98.0 F Pulse Rate 100 H 85 Respiratory 20 18 Rate Blood Pressure 144/84 125/72 O2 Sat by Pulse 96 94 Oximetry - Lab 10/14/21 05:28 10/14/21 05:28 Most recent lab results Calcium 8.1 mg/dL (8.4-10.2) L 10/14/21 05:28 Medications & Allergies - Medications Allergies/Adverse Reactions: Allergies heparin Allergy (Verified 10/09/21 17:20) Swelling lisinopril Adverse Reaction (Verified 09/17/20 17:41) Unknown Home Medications: Home Medications Medication Instructions Recorded Confirmed Last Taken Type Albuterol Mdi (or & Nicu Only) 2 puff IH QID PRN #8.5 gram 10/11/21 Unknown Rx [ProAir HFA Inhaler] Azithromycin [Zithromax TAB] 500 mg PO QDAY #3 tablet 10/11/21 Unknown Rx amLODIPine 5 mg PO DAILY #30 tablet 10/11/21 Unknown Rx Active Medications: Generic Name Dose Route Start Last Admin Trade Name Freq PRN Reason Stop Dose Admin Acetaminophen 650 mg 10/09/21 23:44 Acetaminophen 325 Mg Tab PO Q4H PRN Pain MILD(1-3)/Fever >100.5/ZHANG Amlodipine Besylate 10 mg 10/10/21 12:00 10/13/21 09:33 Amlodipine 10 Mg Tab PO 10 mg DAILY MELLISSA Administration Dextrose 0 ml 10/09/21 23:44 Dextrose 50% In Water (25gm) 50 Ml Syringe IV Q30MIN PRN Hypoglycemia Protocol Hydralazine HCl 10 mg 10/10/21 11:24 Hydralazine 20 Mg/1 Ml Inj IV Q30MIN PRN Hypertension Sodium Chloride 100 mls @ 999 mls/hr 10/10/21 10:42 Nacl 0.9% IV SMITA PRN Hypotension Ceftriaxone Sodium 2 gm in 100 mls @ 200 mls/hr 10/10/21 12:00 10/13/21 22:54 Rocephin/Ns 2 Gm/100 Ml IV 200 mls/hr Q24H MELLISSA Administration Doxycycline Hyclate 100 mg/ 250 mls @ 250 mls/hr 10/10/21 18:00 10/14/21 08:29 Sodium Chloride IV Not Given Q12H [facility] Protocol Insulin Human Lispro 0 unit 10/10/21 07:30 10/14/21 08:29 Insulin Lispro 100 Unit/Ml SUB-Q Not Given ACHS [facility] Protocol Magnesium Hydroxide 30 ml 10/09/21 23:44 10/12/21 15:36 Magnesium Hydroxide (Mom) Oral Liqd Udc PO 30 ml Q4H PRN Administration Constipation Metronidazole 500 mg 10/10/21 22:00 10/14/21 06:30 Metronidazole 500 Mg Tab PO 500 mg Q8HR MELLISSA Administration Morphine Sulfate 2 mg 10/09/21 23:44 10/14/21 06:33 Morphine 2 Mg/1 Ml Inj IV 2 mg Q4H PRN Administration Pain, Moderate (4-6) Morphine Sulfate 4 mg 10/09/21 23:44 10/12/21 19:49 Morphine 4 Mg/1 Ml Inj IV 4 mg Q4H PRN Administration Pain , Severe (7-10) Ondansetron HCl 4 mg 10/09/21 23:44 Ondansetron 4 Mg/2 Ml Inj IV Q8H PRN Nausea And Vomiting Sodium Chloride 10 ml 10/10/21 10:00 10/13/21 22:54 Sodium Chloride 0.9% 10 Ml Flush Syringe IV 10 ml BID MELLISSA Administration Sodium Chloride 10 ml 10/09/21 23:44 Sodium Chloride 0.9% 10 Ml Flush Syringe IV PRN PRN LINE FLUSH
[2021-10-14] MEDS ORDERED: EPOETIN ALFA-EPBX 10,000 UNIT/1 ML VIAL IV PRN (09:05)
[2021-10-14] MEDS: amLODIPine 10 MG TAB PO SCH (10:47)
--- NOTE | 2021-10-14 11:28 | Cat Scan Report ---
PLEASE SEE OPERATIVE REPORT ON 10-13-21 @1419 [facility]
[2021-10-14] MEDS: cefTRIAXone/NS 2 GM/100 ML 2 GM/100 ML BAG IV SCH (12:17)
--- NOTE | 2021-10-14 13:53 | Progress Note ---
Assessment and Plan Cultures: 10/09/2021 urine culture: No growth Hepatitis panel: Negative 10/13/2021 IR drainage culture: In process A/P: 46-year-old female with ESRD admitted with: #Tubo-ovarian abscess: She also does report a history of endometriosis. Underwent IR aspiration, yellow serous thick material aspirated. Not sexually active, no h/o STDs. #ESRD on HD: Renally adjust antibiotics Recs: -IV ceftriaxone, p.o. Flagyl, p.o. doxycycline -Discussed HIV testing, patient states she will get it done with her primary care provider. -Upon discharge, switch to PO Omnicef 300 mg daily + PO Doxycycline 100 mg BID x 10 days -HOE WORKER following Bita May MD, FACP [facility] O: [phone] F: [phone] Subjective Date of service: 10/14/21 Principal diagnosis: Abdominal pain/TOA Interval history: No fever. Underwent IR aspiration yesterday. Denies any new complaints. Objective - Exam Narrative Exam: Physical Exam: Constitutional: Alert, cooperative. No acute distress Head, Ears, Nose: Normocephalic, atraumatic. External ears, nose normal Eyes: Conjunctivae/corneas clear. No icterus. No ptosis. Neck: Supple, no meningeal signs Cardiovascular: S1, S2 + Respiratory: Good air entry, clear to auscultation bilaterally GI: Soft, non-tender; bowel sounds normal. No peritoneal signs Musculoskeletal: No pedal edema, no cyanosis. Skin: No rash or abscess Hem/Lymphatic: No palpable cervical or supraclavicular nodes. No lymphangitis Psych: Mood ok. Affect normal Neurological: Awake, alert, oriented. No gross abnormality - Constitutional Vitals: Vital Signs Temp Pulse Resp BP Pulse Ox 98.0 F 85 18 125/72 94 10/14/21 04:47 10/14/21 04:47 10/14/21 04:47 10/14/21 04:47 10/14/21 04:47 Temperature -Last 24 Hours Temperature 98.0 F Temperature 98.2 F Temperature 97.2 F Temperature 97.7 F Temperature 98.2 F - Labs CBC & Chem 7: 10/14/21 05:28 10/14/21 05:28 Labs: Abnormal lab results 10/13/21 10/14/21 10/14/21 Range/Units 17:50 05:28 05:28 RBC 3.40 L (3.65-5.03) M/mm3 Hgb 8.9 L (10.1-14.3) gm/dl Hct 29.4 L (30.3-42.9) % MCH 26 L (28-32) pg RDW 17.6 H (13.2-15.2) % Plt Count 621 H (140-440) K/mm3 Eos % (Auto) 4.9 H (0.0-4.3) % Seg Neutrophils % 71.2 H (40.0-70.0) % Sodium 134 L (137-145) mmol/L Chloride 94.1 L (98-107) mmol/L BUN 22 H (7-17) mg/dL Creatinine 6.1 H (0.6-1.2) mg/dL Glucose 107 H (65-100) mg/dL POC Glucose 124 H (70-105) mg/dL Calcium 8.1 L (8.4-10.2) mg/dL C-Reactive Protein (0.00-1.30) mg/dL 10/14/21 10/14/21 Range/Units 05:28 10:33 RBC (3.65-5.03) M/mm3 Hgb (10.1-14.3) gm/dl Hct (30.3-42.9) % MCH (28-32) pg RDW (13.2-15.2) % Plt Count (140-440) K/mm3 Eos % (Auto) (0.0-4.3) % Seg Neutrophils % (40.0-70.0) % Sodium (137-145) mmol/L Chloride (98-107) mmol/L BUN (7-17) mg/dL Creatinine (0.6-1.2) mg/dL Glucose (65-100) mg/dL POC Glucose 205 H (70-105) mg/dL Calcium (8.4-10.2) mg/dL C-Reactive Protein 13.90 H (0.00-1.30) mg/dL
--- NOTE | 2021-10-14 16:32 | Progress Note ---
Assessment and Plan - Patient Problems (1) TOA (tubo-ovarian abscess) Current Visit: Yes Status: Acute Plan to address problem: No live from aspirated fluid at 24 hours, pain has resolved, ID recommendations noted Possibly home tomorrow if she remain stable. She voiced understanding and agrees with care (2) Diabetes mellitus Current Visit: Yes Status: Acute (3) End stage renal disease on dialysis Current Visit: Yes Status: Acute (4) Hypertension Current Visit: Yes Status: Acute Subjective - Subjective Date of service: 10/14/21 Principal diagnosis: Abdominal pain/TOA, S/p CT guided aspiration Interval history: Patient is doing well. Pain mych better. Tolerating solid diet and voiding without difficulty.No complaints. Patient reports: appetite normal, pain well controlled, ambulating normally Objective - Vital Signs Latest vital signs: Vital Signs Temp Pulse Resp BP Pulse Ox 10/14/21 04:47 98.0 F 85 18 125/72 94 10/13/21 22:04 98.2 F 100 H 20 144/84 96 10/13/21 20:47 99 10/13/21 20:00 20 96 10/13/21 17:49 97.2 F L 96 H 18 158/90 99 10/13/21 17:26 93 H 150/90 10/13/21 17:15 90 131/89 10/13/21 17:00 91 H 141/86 10/13/21 16:45 87 125/84 10/13/21 16:30 88 136/86 Intake and Output 10/14/21 10/14/21 10/14/21 06:59 14:59 22:59 Intake Total 110 950 Output Total 1 Balance 110 949 Intake: IV 110 ROCEPHIN/NS 2 GM/100 ML 2 100 gm In 100 ml @ 200 mls/ hr IV Q24H MELLISSA Rx#: [id number] Right Forearm 10 Oral 950 Output: Stool 1 Other: Voiding Method Toilet # Voids 3 Weight 80.5 kg 80.5 kg Patient Weight 10/15/21 06:59 Weight 80.5 kg - Labs Labs: Abnormal lab results 10/13/21 10/14/21 10/14/21 Range/Units 17:50 05:28 05:28 RBC 3.40 L (3.65-5.03) M/mm3 Hgb 8.9 L (10.1-14.3) gm/dl Hct 29.4 L (30.3-42.9) % MCH 26 L (28-32) pg RDW 17.6 H (13.2-15.2) % Plt Count 621 H (140-440) K/mm3 Eos % (Auto) 4.9 H (0.0-4.3) % Seg Neutrophils % 71.2 H (40.0-70.0) % Sodium 134 L (137-145) mmol/L Chloride 94.1 L (98-107) mmol/L BUN 22 H (7-17) mg/dL Creatinine 6.1 H (0.6-1.2) mg/dL Glucose 107 H (65-100) mg/dL POC Glucose 124 H (70-105) mg/dL Calcium 8.1 L (8.4-10.2) mg/dL C-Reactive Protein (0.00-1.30) mg/dL 10/14/21 10/14/21 10/14/21 Range/Units 05:28 10:33 16:23 RBC (3.65-5.03) M/mm3 Hgb (10.1-14.3) gm/dl Hct (30.3-42.9) % MCH (28-32) pg RDW (13.2-15.2) % Plt Count (140-440) K/mm3 Eos % (Auto) (0.0-4.3) % Seg Neutrophils % (40.0-70.0) % Sodium (137-145) mmol/L Chloride (98-107) mmol/L BUN (7-17) mg/dL Creatinine (0.6-1.2) mg/dL Glucose (65-100) mg/dL POC Glucose 205 H 67 L (70-105) mg/dL Calcium (8.4-10.2) mg/dL C-Reactive Protein 13.90 H (0.00-1.30) mg/dL
[2021-10-14] MEDS: HYDROmorphone 1 MG/1 ML INJ IV PRN ×2 (18:59→23:59)
--- NOTE | 2021-10-14 19:30 | Progress Note ---
Assessment and Plan Assessment and plan: 46-year-old -Y[place] female with known history of hypertension, chronic hypoxia on 3 L home O2, diabetes mellitus, end-stage renal disease on dialysis on Mondays, Wednesdays and Fridays was just discharged from [facility] about 4 days ago with similar complaints for a ruptured right ovarian cysts. presents to the emergency room today complaining of lower abdominal pain which has been ongoing for the past 3 days. She has had associated nausea but no vomiting and no diarrhea. She denies any constipation, no fever or chills, no chest pain or shortness of breath, no hematuria or dysuria. She denies any bright red blood per rectum. Patient has been compliant with her dialysis. Work-up in ED, CT of the abdomen and pelvis reveals: 1. Suspected inflammatory process deep within the pelvis with associated small bowel obstruction. The appendix is unremarkable. 2. Fluid at the right lower quadrant and pelvis without well-defined fluid collection. 3. Soft tissue anasarca. Labs reveal hemoglobin of 9.3, BUN of 31 and creatinine of 8.1 Urinalysis reveals some WBCs. Assessment: -- Intractable abdominal pain Likely due to pelvic abscess General surgery ruled out any intestinal obstruction Patient placed on IV antibiotics and analgesic medication for pain control. -- pelvic abscess with a tubo-ovarian mass/abscess Patient has been initiated on antibiotic consulted [facility] -underwent IR guided drainage of abscess on 06/12 Cultures pending and on empiric antibiotic therapy Abdominal pain improved since drainage No BM since admitted -- End stage renal disease on dialysis Patient gets dialysis on Mondays, Wednesdays and Fridays. 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 Patient on sliding scale insulin. -- Hypertension Will resume routine home medications and monitor vital signs closely. -- DVT prophylaxis Patient placed on sequential compression device. -- Full code status Daily clinical course: 10/10/21; discussed with general surgery, patient does not have any small bowel obstruction, most likely patient has pelvic abscess, initiated on empiric antibiotics, and consulted [facility]. Patient also will need CT abdomen pelvis with oral contrast -ordered. Will start on clear liquid diet for now. 10/11: noted obg/obstetrician gynecologist recommendation, pt need IR guided abscess drainage, cont iv abx for now 10/12: cont iv abx, pending IR guided pelvic abscess drainage. 10/13: s/p CT guided pelvic drainage by IR but unable to place a drain, ID following, cont iv abx, follow pelvic fluid cx 10/14: Abdominal improved since abscess drained. Low-grade fever and leukocytosis resolved. Tolerating some diet. No BM since admitted. On empiric antibiotic therapy pending abscess cultures. Remains hypoxic with history of home O2. History Interval history: Patient is seen in dialysis unit. Patient denies nausea, vomiting or abdominal pain. She is tolerating diet but poorly eating. She has no BM since admitted. Had low-grade fever resolved. Leukocytosis resolved. Patient has mild respiratory distress on O2 with history of chronic hypoxia on home O2. Hospitalist Physical - Constitutional Vitals: Temp Pulse Resp BP Pulse Ox 98.0 F 85 18 125/72 95 10/14/21 04:47 10/14/21 04:47 10/14/21 04:47 10/14/21 04:47 10/14/21 11:35 General appearance: Present: other (Alert and oriented but mildly dyspneic on O2.) - EENT Eyes: Present: PERRL ENT: clear oral mucosa - Neck Neck: Present: supple - Respiratory Respiratory effort: labored, other (Mildly dyspneic on O2) Respiratory: bilateral: CTA - Cardiovascular Rhythm: regular - Extremities Extremities: No edema - Abdominal General gastrointestinal: soft, non-tender, non-distended, normal bowel sounds - Integumentary Integumentary: Absent: rash - Psychiatric Psychiatric: appropriate mood/affect - Neurologic Neurologic: no focal deficits Results - Labs CBC & Chem 7: 10/14/21 05:28 10/14/21 05:28 Labs: Laboratory Last Values WBC 8.1 K/mm3 (4.5-11.0) 10/14/21 05:28 RBC 3.40 M/mm3 (3.65-5.03) L 10/14/21 05:28 Hgb 8.9 gm/dl (10.1-14.3) L 10/14/21 05:28 Hct 29.4 % (30.3-42.9) L 10/14/21 05:28 MCV 86 fl (79-97) 10/14/21 05:28 MCH 26 pg (28-32) L 10/14/21 05:28 MCHC 30 % (30-34) 10/14/21 05:28 RDW 17.6 % (13.2-15.2) H 10/14/21 05:28 Plt Count 621 K/mm3 (140-440) H 10/14/21 05:28 Lymph % (Auto) 18.9 % (13.4-35.0) 10/14/21 05:28 [place] % (Auto) 4.2 % (0.0-7.3) 10/14/21 05:28 Eos % (Auto) 4.9 % (0.0-4.3) H 10/14/21 05:28 Baso % (Auto) 0.8 % (0.0-1.8) 10/14/21 05:28 Lymph # (Auto) 1.5 K/mm3 (1.2-5.4) 10/14/21 05:28 [place] # (Auto) 0.3 K/mm3 (0.0-0.8) 10/14/21 05:28 Eos # (Auto) 0.4 K/mm3 (0.0-0.4) 10/14/21 05:28 Baso # (Auto) 0.1 K/mm3 (0.0-0.1) 10/14/21 05:28 Seg Neutrophils % 71.2 % (40.0-70.0) H 10/14/21 05:28 Seg Neutrophils # 5.8 K/mm3 (1.8-7.7) 10/14/21 05:28 PT 16.3 Sec. (12.2-14.9) H 10/10/21 05:11 INR 1.18 (0.87-1.13) H 10/10/21 05:11 Sodium 134 mmol/L (137-145) L 10/14/21 05:28 Potassium 4.0 mmol/L (3.6-5.0) 10/14/21 05:28 Chloride 94.1 mmol/L (98-107) L 10/14/21 05:28 Carbon Dioxide 25 mmol/L (22-30) 10/14/21 05:28 Anion Gap 19 mmol/L 10/14/21 05:28 BUN 22 mg/dL (7-17) H 10/14/21 05:28 Creatinine 6.1 mg/dL (0.6-1.2) H 10/14/21 05:28 Estimated GFR 9 ml/min 10/14/21 05:28 BUN/Creatinine Ratio 4 % 10/14/21 05:28 Glucose 107 mg/dL (65-100) H 10/14/21 05:28 POC Glucose 67 mg/dL (70-105) L 10/14/21 16:23 Calcium 8.1 mg/dL (8.4-10.2) L 10/14/21 05:28 Total Bilirubin 0.20 mg/dL (0.1-1.2) 10/09/21 17:32 AST 15 units/L (5-40) 10/09/21 17:32 ALT < 5 units/L (7-56) L 10/09/21 17:32 Alkaline Phosphatase 70 units/L (35-129) 10/09/21 17:32 C-Reactive Protein 13.90 mg/dL (0.00-1.30) H 10/14/21 05:28 Total Protein 7.4 g/dL (6.3-8.2) 10/09/21 17:32 Albumin 3.2 g/dL (3.9-5) L 10/09/21 17:32 Albumin/Globulin Ratio 0.8 % 10/09/21 17:32 Lipase 13 units/L (13-60) 10/09/21 17:32 Urine Color Yellow (Yellow) 10/09/21 Unknown Urine Turbidity Clear (Clear) 10/09/21 Unknown Urine pH 7.0 (5.0-7.0) 10/09/21 Unknown Ur Specific [place] 1.014 (1.003-1.030) 10/09/21 Unknown Urine Protein >500 mg/dL (Negative) 10/09/21 Unknown Urine Glucose (UA) 50 mg/dL (Negative) 10/09/21 Unknown Urine Ketones Tr mg/dL (Negative) 10/09/21 Unknown Urine Blood Sm (Negative) 10/09/21 Unknown Urine Nitrite Neg (Negative) 10/09/21 Unknown Urine Bilirubin Neg (Negative) 10/09/21 Unknown Urine Urobilinogen < 2.0 mg/dL (<2.0) 10/09/21 Unknown Ur Leukocyte Esterase Neg (Negative) 10/09/21 Unknown Urine WBC (Auto) 15.0 /HPF (0.0-6.0) H 10/09/21 Unknown Urine RBC (Auto) 21.0 /HPF (0.0-6.0) 10/09/21 Unknown U Epithel Cells (Auto) 3.0 /HPF (0-13.0) 10/09/21 Unknown Urine Mucus Few /HPF 10/09/21 Unknown Urine Yeast (Budding) Few /HPF 10/09/21 Unknown Fluid Type Ascitic 10/13/21 Unknown Fluid Color Yellow 10/13/21 Unknown Fluid Appearance Clear 10/13/21 Unknown Fluid WBC 14 /mm3 10/13/21 Unknown Fluid RBC 44 /mm3 10/13/21 Unknown Fluid Seg Neutrophils 82.4 % 10/13/21 Unknown Fluid Lymphocytes Not Reportable 10/13/21 Unknown Fluid Reactive Lymphs Not Reportable 10/13/21 Unknown Fluid Monocytes 17.6 % 10/13/21 Unknown Fluid Eosinophils Not Reportable 10/13/21 Unknown Fluid Basophils Not Reportable 10/13/21 Unknown Hepatitis A IgM Ab Non-reactive (NonReactive) 10/10/21 13:22 Hep Bs Antigen Non-reactive (Negative) 10/10/21 13:22 Hep B Core IgM Ab Non-reactive (NonReactive) 10/10/21 13:22 Hepatitis C Antibody Non-reactive (NonReactive) 10/10/21 13:22 Blood Type A POSITIVE 10/10/21 19:51 Antibody Screen Negative 10/10/21 19:51 Microbiology: Microbiology 10/13/21 Unknown Abdomen Surgical Culture - Preliminary Nichols/IV: Voiding Method Toilet Active Medications - Current Medications Current Medications: Generic Name Dose Route Start Last Admin Trade Name Freq PRN Reason Stop Dose Admin Acetaminophen 650 mg 10/09/21 23:44 Acetaminophen 325 Mg Tab PO Q4H PRN Pain MILD(1-3)/Fever >100.5/ZHANG Amlodipine Besylate 10 mg 10/10/21 12:00 10/14/21 10:47 Amlodipine 10 Mg Tab PO 10 mg DAILY [facility] Administration Dextrose 0 ml 10/09/21 23:44 Dextrose 50% In Water (25gm) 50 Ml Syringe IV Q30MIN PRN Hypoglycemia Protocol Doxycycline Hyclate 100 mg 10/14/21 22:00 Doxycycline 100 Mg Cap PO BID [facility] Protocol Hydralazine HCl 10 mg 10/10/21 11:24 Hydralazine 20 Mg/1 Ml Inj IV Q30MIN PRN Hypertension Hydromorphone HCl 0.5 mg 10/14/21 16:00 10/14/21 18:59 Hydromorphone 1 Mg/1 Ml Inj IV 0.5 mg Q3H PRN Administration Pain , Severe (7-10) Sodium Chloride 100 mls @ 999 mls/hr 10/10/21 10:42 Nacl 0.9% IV SMITA PRN Hypotension Ceftriaxone Sodium 2 gm in 100 mls @ 200 mls/hr 10/10/21 12:00 10/14/21 12:17 Rocephin/Ns 2 Gm/100 Ml IV 200 mls/hr Q24H MELLISSA Administration Insulin Human Lispro 0 unit 10/10/21 07:30 10/14/21 18:54 Insulin Lispro 100 Unit/Ml SUB-Q Not Given ACHS [facility] Protocol Metronidazole 500 mg 10/14/21 14:00 10/14/21 14:00 Metronidazole 500 Mg Tab PO 500 mg Q8HR MELLISSA Administration Protocol Morphine Sulfate 2 mg 10/09/21 23:44 10/14/21 10:51 Morphine 2 Mg/1 Ml Inj IV 2 mg Q4H PRN Administration Pain, Moderate (4-6) Ondansetron HCl 4 mg 10/09/21 23:44 Ondansetron 4 Mg/2 Ml Inj IV Q8H PRN Nausea And Vomiting Sodium Chloride 10 ml 10/10/21 10:00 10/14/21 10:54 Sodium Chloride 0.9% 10 Ml Flush Syringe IV 10 ml BID MELLISSA Administration Sodium Chloride 10 ml 10/09/21 23:44 Sodium Chloride 0.9% 10 Ml Flush Syringe IV PRN PRN LINE FLUSH Nutrition/Malnutrition Assess - Dietary Evaluation Nutrition/Malnutrition Findings: Nutrition Notes Start: 10/10/21 09:21 Freq: Status: Active Protocol: Document 10/14/21 15:52 MISTY (Rec: 10/14/21 16:01 MISTY [id number]) Nutrition Notes Initial or Follow up Reassessment Current Diagnosis Diabetes,Hypertension Other Pertinent Diagnosis Abd pain, ESRD+HD, Hyper phosphatemia, Hyperparathyroidism, Anemia. Current Diet Renal Diet (since B 10/13). Labs/Tests 10/14: Na 134, Cl 94.1, BUN 22 , Crea 6.1, Glu 107, Ca 8.1, C -RP 13.9 Pertinent Medications 10/14: Insulin, others nutritionally unremarkable. Height 5 ft 4 in Weight 80.5 kg [place] Body Weight (kg) 54.54 BMI 30.4 Intake Prior to Admission Good Weight change and time frame Weight changed reported: 700 g in 4 days WNL. Weight Status Obese Subjective/Other Information RD consult for routine F/U. Percent of energy/protein needs met: Prescribed Renal Diet provides for energy/protein needs (2, 072 Kcal/77 g) during LOS. Burn Absent Trauma Absent GI Symptoms None Food Allergy No Skin Integrity/Comment Intact, Vas-cath right chest wall Current % PO Good (75-100%) Minimum of two criteria No #1 Nutrition Diagnosis No nutrition diagnosis at this time Comments: diet education - not appropriate as pt is compliant w/dialysis, no reports of appetite loss, or significant weight changes. Is patient on ventilator? No Is Patient Ambulatory and/or Out of Bed Yes [facility] [ 1846.000 [id number]] Calculation Used for Recommendations [facility] Additional Notes Protein: 1.2-1.5 g/Kg; 66-83 g /day (from IBW+ESRD+HD). Fluids: 1 ml/Kcal, or as per MD. Nutrition Intervention Change Diet Order: Continue Renal Diet. Goal #1 Maintain body weight within +/ -3% of current BWt during LOS. Goal #2 Reach and maintain acceptable chemistry lab values during LOS. Follow-Up By: 11/11/21 Additional Comments Continue monitoring food tolerance, %PO intake of meals , Hydration, and BM.
[2021-10-14] MEDS: DOXYCYCLINE 100 MG CAP PO SCH (21:32)
[2021-10-15] MEDS: metroNIDAZOLE 500 MG TAB PO SCH ×3 (06:03→21:11)
[2021-10-15] MEDS: HYDROmorphone 1 MG/1 ML INJ IV PRN ×3 (06:26→18:11)
--- NOTE | 2021-10-15 07:18 | Progress Note ---
Subjective Date of service: 10/15/21 Principal diagnosis: Abdominal pain/TOA, S/p CT guided aspiration Interval history: Assessment - End-stage renal disease on hemodialysis - Hypertension - Anemia of ESRD - Hyperparathyroidism - Hyperphosphatemia - Abdominal pain - TOA Recommendations - Continue HD MWF - Monitor labs and volume status daily and assess need for additional dialysis session - Continue home antihypertensives - Hold antihypertensives on hemodialysis days for systolics less than 160 - Epogen with HD - Continue phosphorus binders - ESRD diet with 1.4 g/kg per day protein - Renally dose medication for creatinine clearance less than 15 cc/min - 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 Objective - Exam Narrative Exam: General: No acute distress HEENT: Oral mucosa moist Neck: Supple, no JVD Chest: Clear to auscultation bilaterally Heart: RRR, S1 and S2, no pericardial rub Abdomen: Soft, tender Extremity: No peripheral cyanosis, edema Neurological: Alert, awake, no asterixis Dermatology: No skin rash Psych: No agitation Musculoskeletal: No joint effusion Objective - Vital Signs Vital signs: Vital Signs - 12hr 10/14/21 10/14/21 10/14/21 20:00 21:17 21:36 Temperature 98.1 F Pulse Rate 92 H Respiratory 20 16 Rate Blood Pressure 155/87 O2 Sat by Pulse 98 97 99 Oximetry 10/15/21 03:45 Temperature 98.2 F Pulse Rate 84 Respiratory 16 Rate Blood Pressure 146/84 O2 Sat by Pulse 97 Oximetry - Lab 10/14/21 05:28 10/14/21 05:28 Most recent lab results Calcium 8.1 mg/dL (8.4-10.2) L 10/14/21 05:28 Medications & Allergies - Medications Allergies/Adverse Reactions: Allergies heparin Allergy (Verified 10/09/21 17:20) Swelling lisinopril Adverse Reaction (Verified 09/17/20 17:41) Unknown Home Medications: Home Medications Medication Instructions Recorded Confirmed Last Taken Type Albuterol Mdi (or & Nicu Only) 2 puff IH QID PRN #8.5 gram 10/11/21 Unknown Rx [ProAir HFA Inhaler] Azithromycin [Zithromax TAB] 500 mg PO QDAY #3 tablet 10/11/21 Unknown Rx amLODIPine 5 mg PO DAILY #30 tablet 10/11/21 Unknown Rx Active Medications: Generic Name Dose Route Start Last Admin Trade Name Freq PRN Reason Stop Dose Admin Acetaminophen 650 mg 10/09/21 23:44 Acetaminophen 325 Mg Tab PO Q4H PRN Pain MILD(1-3)/Fever >100.5/ZHANG Amlodipine Besylate 10 mg 10/10/21 12:00 10/14/21 10:47 Amlodipine 10 Mg Tab PO 10 mg DAILY MELLISSA Administration Dextrose 0 ml 10/09/21 23:44 Dextrose 50% In Water (25gm) 50 Ml Syringe IV Q30MIN PRN Hypoglycemia Protocol Doxycycline Hyclate 100 mg 10/14/21 22:00 10/14/21 21:32 Doxycycline 100 Mg Cap PO 100 mg BID MELLISSA Administration Protocol Hydralazine HCl 10 mg 10/10/21 11:24 Hydralazine 20 Mg/1 Ml Inj IV Q30MIN PRN Hypertension Hydromorphone HCl 0.5 mg 10/14/21 16:00 10/15/21 06:26 Hydromorphone 1 Mg/1 Ml Inj IV 0.5 mg Q3H PRN Administration Pain , Severe (7-10) Sodium Chloride 100 mls @ 999 mls/hr 10/10/21 10:42 Nacl 0.9% IV SMITA PRN Hypotension Ceftriaxone Sodium 2 gm in 100 mls @ 200 mls/hr 10/10/21 12:00 10/14/21 12:17 Rocephin/Ns 2 Gm/100 Ml IV 200 mls/hr Q24H MELLISSA Administration Insulin Human Lispro 0 unit 10/10/21 07:30 10/14/21 21:36 Insulin Lispro 100 Unit/Ml SUB-Q Not Given ACHS MELLISSA Protocol Metronidazole 500 mg 10/14/21 14:00 10/15/21 06:03 Metronidazole 500 Mg Tab PO 500 mg Q8HR MELLISSA Administration Protocol Morphine Sulfate 2 mg 10/09/21 23:44 10/14/21 10:51 Morphine 2 Mg/1 Ml Inj IV 2 mg Q4H PRN Administration Pain, Moderate (4-6) Ondansetron HCl 4 mg 10/09/21 23:44 Ondansetron 4 Mg/2 Ml Inj IV Q8H PRN Nausea And Vomiting Sodium Chloride 10 ml 10/10/21 10:00 10/14/21 21:32 Sodium Chloride 0.9% 10 Ml Flush Syringe IV 10 ml BID MELLISSA Administration Sodium Chloride 10 ml 10/09/21 23:44 Sodium Chloride 0.9% 10 Ml Flush Syringe IV PRN PRN LINE FLUSH
[2021-10-15] MEDS: INSULIN LISPRO 100 UNIT/ML SUB-Q SCH ×3 (08:23→18:10)
[2021-10-15] MEDS: DOXYCYCLINE 100 MG CAP PO SCH ×2 (09:05→21:10)
[2021-10-15] MEDS: amLODIPine 10 MG TAB PO SCH (09:05)
[2021-10-15] MEDS: cefTRIAXone/NS 2 GM/100 ML 2 GM/100 ML BAG IV SCH (13:54)
--- NOTE | 2021-10-15 13:59 | Progress Note ---
Assessment and Plan Cultures: 10/09/2021 urine culture: No growth Hepatitis panel: Negative 10/13/2021 IR drainage culture: No growth in 48 hours A/P: 46-year-old female with ESRD admitted with: #Tubo-ovarian abscess: She also does report a history of endometriosis. Underwent IR aspiration, yellow serous thick material aspirated. Not sexually active, no h/o STDs. #ESRD on HD: Renally adjust antibiotics Recs: -continue IV ceftriaxone, p.o. Flagyl, p.o. doxycycline while inpatient, upon discharge, switch to PO Omnicef 300 mg daily + PO Doxycycline 100 mg BID x 10 days Will sign off. Please call with questions. Bita May MD, FACP [facility] O: [phone] F: [phone] Subjective Date of service: 10/15/21 Principal diagnosis: Abdominal pain/TOA, S/p CT guided aspiration Interval history: No fever. Denies any new complaints. Abdominal pain continues to improve. Objective - Exam Narrative Exam: Physical Exam: Constitutional: Alert, cooperative. No acute distress Head, Ears, Nose: Normocephalic, atraumatic. External ears, nose normal Eyes: Conjunctivae/corneas clear. No icterus. No ptosis. Neck: Supple, no meningeal signs Cardiovascular: S1, S2 + Respiratory: Good air entry, clear to auscultation bilaterally GI: Soft, non-tender; bowel sounds normal. No peritoneal signs Musculoskeletal: No pedal edema, no cyanosis. Skin: No rash or abscess Hem/Lymphatic: No palpable cervical or supraclavicular nodes. No lymphangitis Psych: Mood ok. Affect normal Neurological: Awake, alert, oriented. No gross abnormality - Constitutional Vitals: Vital Signs Temp Pulse Resp BP Pulse Ox 98.2 F 84 16 146/84 96 10/15/21 03:45 10/15/21 03:45 10/15/21 03:45 10/15/21 03:45 10/15/21 10:00 Temperature -Last 24 Hours Temperature 98.2 F Temperature 98.1 F - Labs CBC & Chem 7: 10/14/21 05:28 10/14/21 05:28 Labs: Abnormal lab results 10/14/21 10/14/21 10/15/21 Range/Units 16:23 21:03 07:30 POC Glucose 67 L 129 H 129 H (70-105) mg/dL 10/15/21 Range/Units 11:32 POC Glucose 122 H (70-105) mg/dL
--- NOTE | 2021-10-15 18:20 | Progress Note ---
Assessment and Plan Assessment and plan: 46-year-old -[place] female with known history of hypertension, chronic hypoxia on 3 L home O2, diabetes mellitus, end-stage renal disease on dialysis on Mondays, Wednesdays and Fridays was just discharged from [facility] about 4 days ago with similar complaints for a ruptured right ovarian cysts. presents to the emergency room today complaining of lower abdominal pain which has been ongoing for the past 3 days. She has had associated nausea but no vomiting and no diarrhea. She denies any constipation, no fever or chills, no chest pain or shortness of breath, no hematuria or dysuria. She denies any bright red blood per rectum. Patient has been compliant with her dialysis. Work-up in ED, CT of the abdomen and pelvis reveals: 1. Suspected inflammatory process deep within the pelvis with associated small bowel obstruction. The appendix is unremarkable. 2. Fluid at the right lower quadrant and pelvis without well-defined fluid collection. 3. Soft tissue anasarca. Labs reveal hemoglobin of 9.3, BUN of 31 and creatinine of 8.1 Urinalysis reveals some WBCs. Assessment: -- Intractable RLQ abdominal and rectal pain Likely due to pelvic abscess General surgery ruled out any intestinal obstruction Patient placed on IV antibiotics and analgesic medication for pain control. -- pelvic abscess with a tubo-ovarian mass/abscess Patient has been initiated on antibiotic consulted MEMBERSHIP COORDINATOR -underwent IR guided drainage of abscess on 06/12 Cultures pending and on empiric antibiotic therapy Abdominal pain improved since drainage, still has rectal pain though better No BM since admitted -- End stage renal disease on dialysis Patient gets dialysis on Mondays, Wednesdays and Fridays. Has a perm-Cath in the right anterior chest wall [employer] consulted --Chronic hypoxic respiratory failure, on 3 L home O2 Patient remains hypoxic with some respiratory distress -- Diabetes mellitus We will monitor Accu-Cheks closely. Patient on sliding scale insulin. -- Hypertension Will resume routine home medications and monitor vital signs closely. -- DVT prophylaxis Patient placed on sequential compression device. -- Full code status Daily clinical course: 10/10/21; discussed with general surgery, patient does not have any small bowel obstruction, most likely patient has pelvic abscess, initiated on empiric antibiotics, and consulted MEMBERSHIP COORDINATOR. Patient also will need CT abdomen pelvis with oral contrast -ordered. Will start on clear liquid diet for now. 10/11: noted obg/light rail vehicle operator recommendation, pt need IR guided abscess drainage, cont iv abx for now 10/12: cont iv abx, pending IR guided pelvic abscess drainage. 10/13: s/p CT guided pelvic drainage by IR but unable to place a drain, ID following, cont iv abx, follow pelvic fluid cx 10/14: Abdominal improved since abscess drained. Low-grade fever and leukocytosis resolved. Tolerating some diet. 08/15: RLQ pain resolved but still has some rectal pain. Afebrile stable since. Tolerating diet. On IV antibiotics awaiting final culture report, possible DC tomorrow History Interval history: Patient reports doing better. RLQ pain resolved but still has some rectal pain. Afebrile. Stable vital signs. on IV antibiotics. No acute GI symptoms. Tolerating diet. Hospitalist Physical - Constitutional Vitals: Temp Pulse Resp BP Pulse Ox 98.1 F 89 18 159/90 99 10/15/21 17:20 10/15/21 17:20 10/15/21 17:20 10/15/21 17:20 10/15/21 17:20 General appearance: Present: no acute distress - EENT Eyes: Present: PERRL, EOM intact ENT: hearing intact - Neck Neck: Present: supple - Respiratory Respiratory effort: normal Respiratory: bilateral: CTA - Cardiovascular Rhythm: regular - Extremities Extremities: No edema - Abdominal General gastrointestinal: soft, non-tender, non-distended, normal bowel sounds - Integumentary Integumentary: Absent: rash - Psychiatric Psychiatric: appropriate mood/affect - Neurologic Neurologic: no focal deficits Results - Labs CBC & Chem 7: 10/14/21 05:28 10/14/21 05:28 Labs: Laboratory Last Values WBC 8.1 K/mm3 (4.5-11.0) 10/14/21 05:28 RBC 3.40 M/mm3 (3.65-5.03) L 10/14/21 05:28 Hgb 8.9 gm/dl (10.1-14.3) L 10/14/21 05:28 Hct 29.4 % (30.3-42.9) L 10/14/21 05:28 MCV 86 fl (79-97) 10/14/21 05:28 MCH 26 pg (28-32) L 10/14/21 05:28 MCHC 30 % (30-34) 10/14/21 05:28 RDW 17.6 % (13.2-15.2) H 10/14/21 05:28 Plt Count 621 K/mm3 (140-440) H 10/14/21 05:28 Lymph % (Auto) 18.9 % (13.4-35.0) 10/14/21 05:28 [place] % (Auto) 4.2 % (0.0-7.3) 10/14/21 05:28 Eos % (Auto) 4.9 % (0.0-4.3) H 10/14/21 05:28 Baso % (Auto) 0.8 % (0.0-1.8) 10/14/21 05:28 Lymph # (Auto) 1.5 K/mm3 (1.2-5.4) 10/14/21 05:28 [place] # (Auto) 0.3 K/mm3 (0.0-0.8) 10/14/21 05:28 Eos # (Auto) 0.4 K/mm3 (0.0-0.4) 10/14/21 05:28 Baso # (Auto) 0.1 K/mm3 (0.0-0.1) 10/14/21 05:28 Seg Neutrophils % 71.2 % (40.0-70.0) H 10/14/21 05:28 Seg Neutrophils # 5.8 K/mm3 (1.8-7.7) 10/14/21 05:28 PT 16.3 Sec. (12.2-14.9) H 10/10/21 05:11 INR 1.18 (0.87-1.13) H 10/10/21 05:11 Sodium 134 mmol/L (137-145) L 10/14/21 05:28 Potassium 4.0 mmol/L (3.6-5.0) 10/14/21 05:28 Chloride 94.1 mmol/L (98-107) L 10/14/21 05:28 Carbon Dioxide 25 mmol/L (22-30) 10/14/21 05:28 Anion Gap 19 mmol/L 10/14/21 05:28 BUN 22 mg/dL (7-17) H 10/14/21 05:28 Creatinine 6.1 mg/dL (0.6-1.2) H 10/14/21 05:28 Estimated GFR 9 ml/min 10/14/21 05:28 BUN/Creatinine Ratio 4 % 10/14/21 05:28 Glucose 107 mg/dL (65-100) H 10/14/21 05:28 POC Glucose 132 mg/dL (70-105) H 10/15/21 17:49 Calcium 8.1 mg/dL (8.4-10.2) L 10/14/21 05:28 Total Bilirubin 0.20 mg/dL (0.1-1.2) 10/09/21 17:32 AST 15 units/L (5-40) 10/09/21 17:32 ALT < 5 units/L (7-56) L 10/09/21 17:32 Alkaline Phosphatase 70 units/L (35-129) 10/09/21 17:32 C-Reactive Protein 13.90 mg/dL (0.00-1.30) H 10/14/21 05:28 Total Protein 7.4 g/dL (6.3-8.2) 10/09/21 17:32 Albumin 3.2 g/dL (3.9-5) L 10/09/21 17:32 Albumin/Globulin Ratio 0.8 % 10/09/21 17:32 Lipase 13 units/L (13-60) 10/09/21 17:32 Urine Color Yellow (Yellow) 10/09/21 Unknown Urine Turbidity Clear (Clear) 10/09/21 Unknown Urine pH 7.0 (5.0-7.0) 10/09/21 Unknown Ur Specific [place] 1.014 (1.003-1.030) 10/09/21 Unknown Urine Protein >500 mg/dL (Negative) 10/09/21 Unknown Urine Glucose (UA) 50 mg/dL (Negative) 10/09/21 Unknown Urine Ketones Tr mg/dL (Negative) 10/09/21 Unknown Urine Blood Sm (Negative) 10/09/21 Unknown Urine Nitrite Neg (Negative) 10/09/21 Unknown Urine Bilirubin Neg (Negative) 10/09/21 Unknown Urine Urobilinogen < 2.0 mg/dL (<2.0) 10/09/21 Unknown Ur Leukocyte Esterase Neg (Negative) 10/09/21 Unknown Urine WBC (Auto) 15.0 /HPF (0.0-6.0) H 10/09/21 Unknown Urine RBC (Auto) 21.0 /HPF (0.0-6.0) 10/09/21 Unknown U Epithel Cells (Auto) 3.0 /HPF (0-13.0) 10/09/21 Unknown Urine Mucus Few /HPF 10/09/21 Unknown Urine Yeast (Budding) Few /HPF 10/09/21 Unknown Fluid Type Ascitic 10/13/21 Unknown Fluid Color Yellow 10/13/21 Unknown Fluid Appearance Clear 10/13/21 Unknown Fluid WBC 14 /mm3 10/13/21 Unknown Fluid RBC 44 /mm3 10/13/21 Unknown Fluid Seg Neutrophils 82.4 % 10/13/21 Unknown Fluid Lymphocytes Not Reportable 10/13/21 Unknown Fluid Reactive Lymphs Not Reportable 10/13/21 Unknown Fluid Monocytes 17.6 % 10/13/21 Unknown Fluid Eosinophils Not Reportable 10/13/21 Unknown Fluid Basophils Not Reportable 10/13/21 Unknown Hepatitis A IgM Ab Non-reactive (NonReactive) 10/10/21 13:22 Hep Bs Antigen Non-reactive (Negative) 10/10/21 13:22 Hep B Core IgM Ab Non-reactive (NonReactive) 10/10/21 13:22 Hepatitis C Antibody Non-reactive (NonReactive) 10/10/21 13:22 Blood Type A POSITIVE 10/10/21 19:51 Antibody Screen Negative 10/10/21 19:51 Microbiology: Microbiology 10/13/21 Unknown Abdomen Surgical Culture - Preliminary Nichols/IV: Voiding Method Toilet Active Medications - Current Medications Current Medications: Generic Name Dose Route Start Last Admin Trade Name Freq PRN Reason Stop Dose Admin Acetaminophen 650 mg 10/09/21 23:44 Acetaminophen 325 Mg Tab PO Q4H PRN Pain MILD(1-3)/Fever >100.5/ZHANG Amlodipine Besylate 10 mg 10/10/21 12:00 10/15/21 09:05 Amlodipine 10 Mg Tab PO 10 mg DAILY MELLISSA Administration Dextrose 0 ml 10/09/21 23:44 Dextrose 50% In Water (25gm) 50 Ml Syringe IV Q30MIN PRN Hypoglycemia Protocol Doxycycline Hyclate 100 mg 10/14/21 22:00 10/15/21 09:05 Doxycycline 100 Mg Cap PO 100 mg BID MELLISSA Administration Protocol Hydralazine HCl 10 mg 10/10/21 11:24 Hydralazine 20 Mg/1 Ml Inj IV Q30MIN PRN Hypertension Hydromorphone HCl 0.5 mg 10/14/21 16:00 10/15/21 18:11 Hydromorphone 1 Mg/1 Ml Inj IV 0.5 mg Q3H PRN Administration Pain , Severe (7-10) Sodium Chloride 100 mls @ 999 mls/hr 10/10/21 10:42 Nacl 0.9% IV SMITA PRN Hypotension Ceftriaxone Sodium 2 gm in 100 mls @ 200 mls/hr 10/10/21 12:00 10/15/21 13:54 Rocephin/Ns 2 Gm/100 Ml IV 200 mls/hr Q24H MELLISSA Administration Insulin Human Lispro 0 unit 10/10/21 07:30 10/15/21 18:10 Insulin Lispro 100 Unit/Ml SUB-Q Not Given ACHS MELLISSA Protocol Metronidazole 500 mg 10/14/21 14:00 10/15/21 13:05 Metronidazole 500 Mg Tab PO 500 mg Q8HR MELLISSA Administration Protocol Morphine Sulfate 2 mg 10/09/21 23:44 10/14/21 10:51 Morphine 2 Mg/1 Ml Inj IV 2 mg Q4H PRN Administration Pain, Moderate (4-6) Ondansetron HCl 4 mg 10/09/21 23:44 Ondansetron 4 Mg/2 Ml Inj IV Q8H PRN Nausea And Vomiting Sodium Chloride 10 ml 10/10/21 10:00 10/15/21 13:42 Sodium Chloride 0.9% 10 Ml Flush Syringe IV 10 ml BID MELLISSA Administration Sodium Chloride 10 ml 10/09/21 23:44 Sodium Chloride 0.9% 10 Ml Flush Syringe IV PRN PRN LINE FLUSH Nutrition/Malnutrition Assess - Dietary Evaluation Nutrition/Malnutrition Findings: Nutrition Notes Start: 10/10/21 09:21 Freq: Status: Active Protocol: Document 10/14/21 15:52 MISTY (Rec: 10/14/21 16:01 MISTY [id number]) Nutrition Notes Initial or Follow up Reassessment Current Diagnosis Diabetes,Hypertension Other Pertinent Diagnosis Abd pain, ESRD+HD, Hyper phosphatemia, Hyperparathyroidism, Anemia. Current Diet Renal Diet (since B 10/13). Labs/Tests 11/16: Na 134, Cl 94.1, BUN 22 , Crea 6.1, Glu 107, Ca 8.1, C -RP 13.9 Pertinent Medications 10/14: Insulin, others nutritionally unremarkable. Height 5 ft 4 in Weight 80.5 kg [place] Body Weight (kg) 54.54 BMI 30.4 Intake Prior to Admission Good Weight change and time frame Weight changed reported: 700 g in 4 days WNL. Weight Status Obese Subjective/Other Information RD consult for routine F/U. Percent of energy/protein needs met: Prescribed Renal Diet provides for energy/protein needs (2, 072 Kcal/77 g) during LOS. Burn Absent Trauma Absent GI Symptoms None Food Allergy No Skin Integrity/Comment Intact, Vas-cath right chest wall Current % PO Good (75-100%) Minimum of two criteria No #1 Nutrition Diagnosis No nutrition diagnosis at this time Comments: diet education - not appropriate as pt is compliant w/dialysis, no reports of appetite loss, or significant weight changes. Is patient on ventilator? No Is Patient Ambulatory and/or Out of Bed Yes REE-([facility]-ambulatory/OOB) [ 1846.000 [id number]] Calculation Used for Recommendations [facility] Additional Notes Protein: 1.2-1.5 g/Kg; 66-83 g /day (from IBW+ESRD+HD). Fluids: 1 ml/Kcal, or as per MD. Nutrition Intervention Change Diet Order: Continue Renal Diet. Goal #1 Maintain body weight within +/ -3% of current BWt during LOS. Goal #2 Reach and maintain acceptable chemistry lab values during LOS. Follow-Up By: 11/11/21 Additional Comments Continue monitoring food tolerance, %PO intake of meals , Hydration, and BM.
[2021-10-15] MEDS: MORPHINE 2 MG/1 ML INJ IV PRN (20:40)
[2021-10-16] MEDS: INSULIN LISPRO 100 UNIT/ML SUB-Q SCH ×3 (01:07→13:17)
[2021-10-16] MEDS: HYDROmorphone 1 MG/1 ML INJ IV PRN ×2 (03:27→10:58)
[2021-10-16] MEDS: metroNIDAZOLE 500 MG TAB PO SCH ×2 (05:23→13:40)
[2021-10-16 08:24] LABS: Basophils # (Auto) 0.1 K/mm3 (0.0-0.1); Basophils % (Auto) 1.4 % (0.0-1.8); Eosinophils # (Auto) 0.3 K/mm3 (0.0-0.4); Eosinophils % (Auto) 3.8 % (0.0-4.3); Hematocrit 26.8 % (30.3-42.9); Hemoglobin 8.6 gm/dl (10.1-14.3); Lymphocytes # (Auto) 1.1 K/mm3 (1.2-5.4); Lymphocytes % (Auto) 13.6 % (13.4-35.0); Mean Corpuscular HGB Conc 32 % (30-34); Mean Corpuscular Volume 86 fl (79-97); Monocytes # (Auto) 0.4 K/mm3 (0.0-0.8); Monocytes % (Auto) 5.1 % (0.0-7.3); Platelet Count 576 K/mm3 (140-440); Red Blood Count 3.12 M/mm3 (3.65-5.03); Red Cell Distribution Width 17.6 % (13.2-15.2)
[2021-10-16 08:40] LABS: Albumin 3.3 g/dL (3.9-5); Blood Urea Nitrogen 21 mg/dL (7-17); Calcium 8.5 mg/dL (8.4-10.2); Hemolysis Index 0
[2021-10-16 08:47] LABS: Alanine Aminotransferase < 5 units/L (7-56); BUN/Creatinine Ratio 3
[2021-10-16] MEDS: amLODIPine 10 MG TAB PO SCH (09:17)
[2021-10-16] MEDS: DOXYCYCLINE 100 MG CAP PO SCH (09:17)
[2021-10-16 09:18] VITALS: BP 144/88
--- NOTE | 2021-10-16 10:06 | Progress Note ---
Subjective Date of service: 10/16/21 Principal diagnosis: Abdominal pain/TOA, S/p CT guided aspiration Interval history: Assessment - End-stage renal disease on hemodialysis - Hypertension - Anemia of ESRD - Hyperparathyroidism - Hyperphosphatemia - Abdominal pain - TOA Recommendations - Continue HD MWF - Monitor labs and volume status daily and assess need for additional dialysis session - Continue home antihypertensives - Hold antihypertensives on hemodialysis days for systolics less than 160 - Epogen with HD - Continue phosphorus binders - ESRD diet with 1.4 g/kg per day protein - Renally dose medication for creatinine clearance less than 15 cc/min - Surgery, PRECISION LENS GRINDER, IR and primary note reviewed,s/p drainage ok to dc home from renal standpoint Subjective Principal diagnosis: Abdominal pain/TOA Interval history: Continues to experience abdominal discomfort. Objective - Exam Narrative Exam: General: No acute distress HEENT: Oral mucosa moist Neck: Supple, no JVD Chest: Clear to auscultation bilaterally Heart: RRR, S1 and S2, no pericardial rub Abdomen: Soft, tender Extremity: No peripheral cyanosis, edema Neurological: Alert, awake, no asterixis Dermatology: No skin rash Psych: No agitation Musculoskeletal: No joint effusion Objective - Vital Signs Vital signs: Vital Signs - 12hr 10/15/21 10/16/21 22:08 09:17 Temperature 97.6 F Pulse Rate 89 89 Respiratory 18 Rate Blood Pressure 144/80 144/88 O2 Sat by Pulse 96 Oximetry - Lab 10/16/21 08:07 10/16/21 08:07 Most recent lab results Calcium 8.5 mg/dL (8.4-10.2) 10/16/21 08:07 Medications & Allergies - Medications Allergies/Adverse Reactions: Allergies heparin Allergy (Verified 10/09/21 17:20) Swelling lisinopril Adverse Reaction (Verified 09/17/20 17:41) Unknown Home Medications: Home Medications Medication Instructions Recorded Confirmed Last Taken Type Albuterol Mdi (or & Nicu Only) 2 puff IH QID PRN #8.5 gram 10/11/21 Unknown Rx [ProAir HFA Inhaler] Azithromycin [Zithromax TAB] 500 mg PO QDAY #3 tablet 10/11/21 Unknown Rx amLODIPine 5 mg PO DAILY #30 tablet 10/11/21 Unknown Rx Active Medications: Generic Name Dose Route Start Last Admin Trade Name Freq PRN Reason Stop Dose Admin Acetaminophen 650 mg 10/09/21 23:44 Acetaminophen 325 Mg Tab PO Q4H PRN Pain MILD(1-3)/Fever >100.5/ZHANG Amlodipine Besylate 10 mg 10/10/21 12:00 10/16/21 09:17 Amlodipine 10 Mg Tab PO 10 mg DAILY MELLISSA Administration Dextrose 0 ml 10/09/21 23:44 Dextrose 50% In Water (25gm) 50 Ml Syringe IV Q30MIN PRN Hypoglycemia Protocol Doxycycline Hyclate 100 mg 10/14/21 22:00 10/16/21 09:17 Doxycycline 100 Mg Cap PO 100 mg BID MELLISSA Administration Protocol Hydralazine HCl 10 mg 10/10/21 11:24 Hydralazine 20 Mg/1 Ml Inj IV Q30MIN PRN Hypertension Hydromorphone HCl 0.5 mg 10/14/21 16:00 10/16/21 03:27 Hydromorphone 1 Mg/1 Ml Inj IV 0.5 mg Q3H PRN Administration Pain , Severe (7-10) Sodium Chloride 100 mls @ 999 mls/hr 10/10/21 10:42 Nacl 0.9% IV SMITA PRN Hypotension Ceftriaxone Sodium 2 gm in 100 mls @ 200 mls/hr 10/10/21 12:00 10/15/21 13:54 Rocephin/Ns 2 Gm/100 Ml IV 200 mls/hr Q24H MELLISSA Administration Insulin Human Lispro 0 unit 10/10/21 07:30 10/16/21 08:53 Insulin Lispro 100 Unit/Ml SUB-Q Not Given ACHS [facility] Protocol Metronidazole 500 mg 10/14/21 14:00 10/16/21 05:23 Metronidazole 500 Mg Tab PO 500 mg Q8HR MELLISSA Administration Protocol Morphine Sulfate 2 mg 10/09/21 23:44 10/15/21 20:40 Morphine 2 Mg/1 Ml Inj IV 2 mg Q4H PRN Administration Pain, Moderate (4-6) Ondansetron HCl 4 mg 10/09/21 23:44 10/16/21 05:23 Ondansetron 4 Mg/2 Ml Inj IV 4 mg Q8H PRN Administration Nausea And Vomiting Sodium Chloride 10 ml 10/10/21 10:00 10/15/21 21:12 Sodium Chloride 0.9% 10 Ml Flush Syringe IV 10 ml BID MELLISSA Administration Sodium Chloride 10 ml 10/09/21 23:44 Sodium Chloride 0.9% 10 Ml Flush Syringe IV PRN PRN LINE FLUSH
[2021-10-16] MEDS: cefTRIAXone/NS 2 GM/100 ML 2 GM/100 ML BAG IV SCH (11:14)
--- NOTE | 2021-10-16 15:59 | Discharge Summary ---
Providers - Providers Date of Admission: 10/11/21 12:19 Attending physician: HUDSON OATES MD 10/09/21 23:07 Consult to Physician [CONS] Stat Comment: Dr. Schwarz spoke with Dr. Sanchez @ [id number] Consulting Provider: ADRIANNA SANCHEZ Physician Instructions: Reason For Exam: SBO 10/09/21 23:44 Consult to Dietitian/Nutrition [CONS] Routine Physician Instructions: Reason For Exam: Reason for Consult: Diet education 10/10/21 05:02 Consult to Physician [CONS] Routine Comment: Consulting Provider: RASHEEDA HALEY Physician Instructions: Reason For Exam: ESRD - on dialysis 10/10/21 12:25 Consult to Physician [CONS] Routine Comment: Consulting Provider: LEIGH HI Physician Instructions: Reason For Exam: pelvic abscess 10/10/21 21:51 Consult to Physician [CONS] Routine Comment: Consulting Provider: KATT MARTIN Physician Instructions: Reason For Exam: CT GUIDED DRAINAGE OF TOA 10/10/21 21:52 Consult to Physician [CONS] Routine Comment: Consulting Provider: TABATHA GRAJEDA Physician Instructions: Reason For Exam: TOA; RENAL DZ; APPROPRIATE COVERAGE Primary care physician: MARU ALVAREZ Hospitalization Condition: Stable Hospital course: Assessment and plan: 46-year-old -[place] female with known history of hypertension, remote history of endometriosis, end-stage renal disease on hemo-dialysis was just discharged from [facility] about 4 days ago, she was admitted for RLQ abdominal pain with ruptured right ovarian cysts and was discharged on oral antibiotics for outpatient follow-up. No aspiration or surgical intervention performed. Presents to the emergency room today complaining of worsening lower abdominal pain along with pain close to rectum worse with sitting. She has had associated nausea but no vomiting and no diarrhea. She denies any constipation, no fever or chills, no chest pain or shortness of breath, no hematuria or dysuria. She denies any bright red blood per rectum. Patient has been compliant with her dialysis. CT abdomen/pelvis revealed right tubo-ovarian abscess 7.9 x 6.4 cm in dimensions with normal WBC. Patient was evaluated by general surgery, [employer] as well as infectious disease service. There was a concern for possible bowel obstruction but improved not to be. She tolerated diet. IR performed image guided drainage on 08/13 and 10 mL of yellow serous mucoid fluid removed and sent to lab. Initially patient had a temp of 100 degrees which then resolved. She was treated empirically with Rocephin, Flagyl and doxazosin by ID. Pleural fluid cultures negative. Patient reported resolution of right quadrant anterior abdominal pain is resolved and per rectal pain improving. She remained afebrile and hemodynamically stable, tolerating regular diet. Hemodialysis continued in house. Patient was stable for discharge. ID service recommended 10-day course of doxycycline and Omnicef after discharge. CRP improved from 13.9-6.9. [employer], hepatitis serology and urine culture negative. Dr. Carly Johnson scheduled to see her in office on 10/17/2021 for follow-up. Discharge diagnoses: Right tubo-ovarian rupture, suspected abscess but cultures negative, patient was already taking antibiotics during recent admission ESRD on hemodialysis Hypertension Anemia of chronic kidney disease Remote history of endometriosis Disposition: HOME / SELF CARE / HOMELESS Final Discharge Diagnosis (Prints w/discharge instructions): Right tubo-ovarian rupture, suspected abscess but cultures negative, patient was already taking antibiotics during recent admission. ESRD on hemodialysis. Hypertension. Anemia of chronic kidney disease. Remote history of endometriosis Exam - Constitutional Vitals: Temp Pulse Resp BP Pulse Ox 97.6 F 89 16 144/88 98 10/15/21 22:08 10/16/21 09:17 10/16/21 10:15 10/16/21 09:17 10/16/21 10:15 General appearance: Present: no acute distress - EENT Eyes: Present: PERRL ENT: clear oral mucosa - Neck Neck: Present: supple - Respiratory Respiratory effort: normal Respiratory: bilateral: CTA - Cardiovascular Rhythm: regular - Extremities Extremities: No edema - Abdominal General gastrointestinal: Present: soft, non-tender, non-distended, normal bowel sounds, other (No mass appreciated with palpation) - Integumentary Integumentary: Absent: rash - Psychiatric Psychiatric: appropriate mood/affect - Neurologic Neurologic: no focal deficits Plan Activity: advance as tolerated Diet: renal Special Instructions: restrict fluid intake to (1500 mL) Follow up with: MARU ALVAREZ MD [Primary Care Provider] - 3-5 Days CARLY ABRAHAM MD [Staff Physician] - 10/17/21 10:00 am (Tyler) Prescriptions: amLODIPine 5 mg PO DAILY #30 tablet Cefdinir 300 mg PO DAILY #10 capsule Albuterol Mdi (or & Nicu Only) [ProAir HFA Inhaler] 2 puff IH QID PRN #8.5 gram PRN Reason: Shortness Of Breath DOXYCYCLINE Hyclate [Vibramycin CAP] 100 mg PO BID #20 tab Azithromycin [Zithromax TAB] 500 mg PO QDAY #3 tablet
== END 2021-10-16 17:28 | disposition home or self-care (01) | DRG 871 ==
LOC: ED 17:19 → 3A 23:44 → OBSVTOIN 10-11 12:19
PROVIDERS: ADMIT Internal Medicine Geriatric Medicine; ATTEND Internal Medicine
PROC: 5A1D70Z Performance of Urinary Filtration, Intermittent, Less than 6 Hours Per Day (ICD-10-PCS; principal; 2021-10-10)
PROC: 5A1D70Z Performance of Urinary Filtration, Intermittent, Less than 6 Hours Per Day (ICD-10-PCS; 2021-10-13)
PROC: 0W9J3ZZ Drainage of Pelvic Cavity, Percutaneous Approach (ICD-10-PCS; 2021-10-13)
PROC: 5A1D70Z Performance of Urinary Filtration, Intermittent, Less than 6 Hours Per Day (ICD-10-PCS; 2021-10-15)
DX: A41.9 Sepsis, unspecified organism (principal); K65.1 Peritoneal abscess; N18.6 End stage renal disease; K56.609 Unspecified intestinal obstruction, unspecified as to partial versus complete obstruction; I12.0 Hypertensive chronic kidney disease with stage 5 chronic kidney disease or end stage renal disease; N70.93 Salpingitis and oophoritis, unspecified; Z99.2 Dependence on renal dialysis; Z88.8 Allergy status to other drugs, medicaments and biological substances; K21.9 Gastro-esophageal reflux disease without esophagitis; Z79.82 Long term (current) use of aspirin; Z79.84 Long term (current) use of oral hypoglycemic drugs; D63.1 Anemia in chronic kidney disease; E21.3 Hyperparathyroidism, unspecified
CPT/HCPCS: 10160; 36415; 74176; 74177; 77012; 80048; 80053; 80074; 81001; 82962; 83690; 85025; 85610; 86140; 86850; 86900; 86901; 87086; 87116; 88112; 89051; G0378; J3490; Q9967; C1769; J0696; J1170; J1815; J2250; J2270; J2405; J3010; J7040; J7050

== ENCOUNTER 2022-02-18 13:05 | Emergency (ER) | payer SELFPAY ==
[2022-02-18 14:18] VITALS: BP 120/69
== END 2022-02-18 17:20 | disposition left against medical advice (07) ==
LOC: ED 13:05
DX: I10 Essential (primary) hypertension (principal); Z53.21 Procedure and treatment not carried out due to patient leaving prior to being seen by health care provider

== ENCOUNTER 2022-04-09 11:12 | Day surgery (SDC) | payer MEDICARE ==
[~2022-04-09 11:12] MED LIST: MIDAZOLAM 2 MG/2 ML INJ IV SCH; SODIUM CHLORIDE 0.9% 1000 ML 1,000 ML IV SCH
--- NOTE | 2022-04-09 12:48 | Anesthesia Consultation ---
Anesthesia Consult and Med Hx Date of service: 04/09/22 - Airway Anesthetic Teeth Evaluation: Good ROM Head & Neck: Adequate Mental/Hyoid Distance: Adequate Mallampati Class: Class III Intubation Access Assessment: Possibly Difficult - Pre-Operative Health Status ASA Pre-Surgery Classification: ASA3 Proposed Anesthetic Plan: General - Pulmonary Hx Smoking: No Hx Respiratory Symptoms: No Hx Pneumonia: Yes (COVID 11/2021; resolved) - Cardiovascular System Hx Hypertension: Yes (took anithypertensives this morning) Hx Heart Attack/AMI: No Hx Percutaneous Transluminal Coronary Angioplasty (PTCA): No Hx Cardia Arrhythmia: No - Central Nervous System CVA: No - Endocrine Hx End Stage Renal Disease: Yes (last HD 04/08/22) Hx Liver Disease: No Hx Non-Insulin Dependent Diabetes: Yes (diet controlled) - Hematic Hx Anemia: Yes - Additional Comments Anesthesia Medical History Comments: No hx anesthetic complications.
[2022-04-09] MEDS ORDERED: HYDROcodone/ACETAMINOPHEN 5-325 MG TAB PO PRN (12:49)
[2022-04-09] MEDS ORDERED: fentaNYL 100 MCG/2 ML INJ IV PRN (12:49)
--- NOTE | 2022-04-09 12:49 | Anesthesia Day of Surgery ---
Anesthesia Day of Surgery - Day of Surgery Patient Examined: Yes Patient H&P Reviewed: Yes Patient is NPO: Yes Beta Blockers: Yes (home dose carvedilol this morning)
[2022-04-09 12:56] LABS: Hematocrit 37.9 % (30.3-42.9); Hemoglobin 11.9 gm/dl (10.1-14.3); Mean Corpuscular HGB Conc 32 % (30-34); Mean Corpuscular Volume 85 fl (79-97); Platelet Count 151 K/mm3 (140-440); Red Blood Count 4.46 M/mm3 (3.65-5.03)
[2022-04-09 13:11] LABS: Calcium 9.3 mg/dL (8.4-10.2)
[2022-04-09] MEDS ORDERED: ceFAZolin/Water 2 GM/20 ML 2 GM/20 ML SYRINGE IV ONE (13:45)
[2022-04-09] MEDS ORDERED: PROTAMINE SULFATE 50 MG/5 ML INJ ONE (14:33)
[2022-04-09] MEDS ORDERED: SODIUM CHLORIDE 0.9% 500 ML 500 ML ONE ×2 (14:34→14:55)
[2022-04-09] MEDS ORDERED: BUPIVACAINE/PF (0.25%) 2.5 MG/ML 30 ML VIAL INFILTRATI ONE (14:34)
[2022-04-09] MEDS ORDERED: propofoL 200 MG/20 ML VIAL IV ONE (14:34)
[2022-04-09] MEDS ORDERED: HEPARIN 10,000 UNITS/10 ML VIAL ONE (14:34)
[2022-04-09] MEDS ORDERED: THROMBIN (RECOMBINANT) 5,000 UNIT VIAL TP ONE ×2 (14:34→15:49)
[2022-04-09] MEDS ORDERED: LIDOCAINE MPF (2%) 20 MG/1 ML VIAL 5 ML ONE (14:34)
[2022-04-09] MEDS ORDERED: fentaNYL 100 MCG/2 ML INJ ONE (14:34)
[2022-04-09] MEDS ORDERED: ceFAZolin/STERILE WATER 2 GM/20 ML SYRINGE IV NR (15:00)
[2022-04-09] MEDS ORDERED: SODIUM CHLORIDE 0.9% IRR 1,000 ML BOTTLE IR ONE (15:48)
[2022-04-09] MEDS ORDERED: SODIUM CHLORIDE 0.9% 500 ML IVPB IRRIGATION ONE (15:49)
[2022-04-09] MEDS ORDERED: ARGATROBAN 250 MG in SODIUM CHLORIDE 0.9% 250ML 247.5 ML IV SCH (16:00)
--- NOTE | 2022-04-09 17:26 | Post Operative Note ---
Date of procedure: 04/09/22 Pre-op diagnosis: ESRD Post-op diagnosis: same Procedure: Left Arm Basilic Vein Transposition Anesthesia: GETA Surgeon: JIM ORTEGA Estimated blood loss: other (25ml) Pathology: none Condition: stable Disposition: PACU
--- NOTE | 2022-04-09 17:28 | Short Stay Summary ---
Short Stay Documentation Date of service: 04/09/22 - History H&P: dictated Past Medical History: ESRD - Allergies and Medications Current Medications: Allergies heparin Allergy (Severe, Verified 04/02/22 15:56) Swelling THROAT SWELLING lisinopril Adverse Reaction (Verified 04/02/22 15:56) Unknown COUGH Home Medications Medication Instructions Recorded Confirmed Last Taken Type Furosemide [Lasix TAB] 80 mg PO DAILY 04/02/22 04/02/22 Unknown History NIFEdipine [Nifedipine ER] 60 mg PO DAILY 04/02/22 04/02/22 Unknown History Sevelamer Carbonate [Renvela] 800 mg PO TIDWM 04/02/22 04/02/22 Unknown History carvediloL [Coreg] 25 mg PO BID 04/02/22 04/02/22 Unknown History Active Medications Hydrocodone Bitart/Acetaminophen (Hydrocodone/Acetaminophen 5-325 Mg Tab) 2 each PO ONCE PRN PRN Reason: Pain, Moderate (4-6) Cefazolin Sodium (Cefazolin/Sterile Water 2 Gm/20 Ml Syringe) 2 gm IV PREOP NR Stop: 04/09/22 23:59 Fentanyl (Fentanyl 100 Mcg/2 Ml Inj) 50 mcg IV Q5MIN PRN PRN Reason: Pain , Severe (7-10) Stop: 04/10/22 12:48 Sodium Chloride (Nacl 0.9% 1000 Ml) 1,000 mls @ 42 mls/hr IV DIRECT MELLISSA Stop: 04/09/22 23:59 Last Admin: 04/09/22 12:40 Dose: 42 mls/hr Argatroban 250 mg/ Sodium (Chloride) 250 mls @ 4.763 mls/hr IV TITR MELLISSA; Protocol Midazolam HCl (Midazolam 2 Mg/2 Ml Inj) 2 mg IV PREOP MELLISSA Last Admin: 04/09/22 14:19 Dose: 2 mg - Physical exam General appearance: no acute distress HEENT: Atraumatic Lungs: Normal air movement Heart: Regular rate Extremities: no ischemia - Hospital course Hospital course: the patient was taken to the operating room and had a left arm av fistula creation. please refer to the operative note concerning details of the procedure. the patient tolerated the procedure well and was discharged home in stable condition. - Disposition Condition at discharge: Stable Disposition: 01 HOME / SELF CARE / HOMELESS Short Stay Discharge Plan Follow up with: PRIMARY CARE, [Primary Care Provider] - 7 Days
[2022-04-09] MEDS ORDERED: oxyCODONE /ACETAMINOPHEN 5-325MG TAB PO PRN (17:29)
[2022-04-09 18:33] VITALS: BP 159/62
--- NOTE | 2022-04-09 18:44 | Post Anesthesia Evaluation ---
- Post Anesthesia Evaluation Patient Participated: Yes Airway Patent: Yes Stable Respiratory Function: Yes Nausea/Vomiting: No Temp > 96.8F: Yes Pain Manageable: Yes Adequeate Hydration: Yes Anesthesia Complications: No
--- NOTE | 2022-04-09 22:15 | Operative Report ---
DATE OF SURGERY: 04/09/2022 STAFF SURGEON: Tam Whalen M.D. PREOPERATIVE DIAGNOSIS: End-stage renal disease. POSTOPERATIVE DIAGNOSIS: End-stage renal disease. PROCEDURE PERFORMED: Left arm basilic vein transposition. COMPLICATIONS: None. ESTIMATED BLOOD LOSS: 25 mL. ANESTHESIA: General. INDICATIONS FOR PROCEDURE: This is a 46-year-old female with end-stage renal disease, on hemodialysis via a PermCath, in need of upper extremity access. The patient preoperatively was noted to have a suitable upper arm basilic vein, was scheduled to undergo AV fistula creation. The patient was explained the risks, benefits and alternative of procedure, expressed understanding and wished to proceed. DESCRIPTION OF PROCEDURE: After the appropriate consent was obtained, the patient was brought back to the operating room and placed on the operating table in supine position with the left arm extended. The patient was given appropriate medication for general anesthesia, had LMA placed without difficulty. The left arm was prepped and draped in the usual sterile fashion with ChloraPrep. Appropriate preoperative antibiotics were administered and appropriate timeout was performed indicating correct patient, procedure, and site of procedure. We then began the operation by making a longitudinal incision near the antecubital fossa in the medial upper arm. This was carried through subcutaneous tissues with combination of blunt dissection and electrocautery. The basilic vein was identified and found to be suitable for venous outflow and so an incision was extended towards the axilla. We continued dissection through the subcutaneous tissues with combination of blunt dissection and electrocautery. The basilic vein was exposed in its entirety. The branches of the vein were controlled with mosquito clamps, transected, and then ligated with silk suture. Once the vein was completely mobilized, we then proceeded to continue our dissection lateral to the vein near the distal aspect of the incision through the bicep aponeurosis to expose the brachial artery. This was found to be suitable for arterial inflow and was mobilized for appropriate distance both proximally and distally. A subcutaneous tunnel was made with a Sisi clamp. The patient was given a bolus of argatroban, then started on a drip. After appropriate timeout elapsed, vascular clamps were placed on the brachial artery, both proximally and distally. Longitudinal arteriotomy was made with 11 blade, extended with Perez scissors and an end-to-side anastomosis was performed with a running 6-0 Prolene suture. Prior to completion of the anastomosis, we flushed both proximally and distally. Anastomosis was flushed with saline and anastomosis was completed. Flow was established through the fistula and had a nice palpable thrill, which was confirmed by Doppler. The distal clamp was removed after several beats. We then looked to obtain hemostasis along the suture line, which were obtained with hemostatic agents. Once we were satisfied with hemostasis, we then proceeded to approximate the deep subcutaneous layer with interrupted 3-0 PDS and the skin was approximated with karen. Appropriate dressing was placed. The patient tolerated the procedure well, emerged from the general anesthesia, had LMA removed in the operating room and sent to recovery in stable condition. All sponge, instrument and needle counts were correct at completion of the operation. TID: [id number] RECEIPT: [id number] KINGA/RADHA
== END 2022-04-09 19:15 | disposition home or self-care (01) ==
LOC: OR 11:12
PROVIDERS: ATTEND Surgery Vascular Surgery
DX: I12.0 Hypertensive chronic kidney disease with stage 5 chronic kidney disease or end stage renal disease (principal); N18.6 End stage renal disease; E11.22 Type 2 diabetes mellitus with diabetic chronic kidney disease; D64.9 Anemia, unspecified; Z87.01 Personal history of pneumonia (recurrent); Z79.899 Other long term (current) drug therapy; Z88.8 Allergy status to other drugs, medicaments and biological substances; Z98.890 Other specified postprocedural states
CPT/HCPCS: 36415; 36819; 80048; 81025; 82962; 85027; J0690; J0883; J1644; J2250; J2704; J2720; J3010; J3490; J7030; J7040; J7050